=== PATIENT | female | born 1960 | race Hispanic/Latino ===

== ENCOUNTER 2017-06-19 21:14 | Observation (INO) | payer SELFPAY ==
[2017-06-19 21:40] LABS: #Basophils 0.1 thou/uL (0.0-0.2); #Eosinphils 0.1 thou/uL (0.0-0.7); #Lymphocytes 2.1 thou/uL (1.20-3.40); #Monocytes 0.8 thou/uL (0.11-0.59); #Neutrophils 5.3 thou/uL (1.40-6.50); %Basophils 0.8 % (0.0-1.0); %Eosinophils 1.8 % (0.0-10.0); %Monocytes 9.9 % (0.0-10.0); Hematocrit 27.3 % (36.0-47.0); Mean Platelet Volume 8.1 fL (7.4-10.4); Red Blood Cell (RBC) Count 2.76 mill/uL (4.20-5.40); White Blood Cell (WBC) Count 8.4 thou/uL (4.8-10.8)
[2017-06-19 22:03] LABS: ALT (SGPT) 17 U/L (8-55); AST (SGOT) 19 U/L (5-34); Alkaline Phosphatase 104 U/L (40-150); Anion Gap 16 mmol/L (10-20); BUN (Urea Nitrogen) 75 mg/dL (9.8-20.1); Bilirubin, Total 0.4 mg/dL (0.2-1.2); CK (CPK) 109 U/L (29-168); Calc. Creatinine Clearance 0 mL/min (70-130); Calcium 7.3 mg/dL (7.8-10.44); Carbon Dioxide 12 mmol/L (22-29); Chloride 117 mmol/L (98-107); Estimated GFR-MDRD 10; Globulin 4.6 g/dL (2.4-3.5); Protein, Total 8.4 g/dL (6.0-8.3)
[2017-06-19 22:13] LABS: Troponin I Less than 0.010 ng/mL (< 0.028)
--- NOTE | 2017-06-19 22:26 | RAD ---
PORTABLE CHEST ONE VIEW: 06/19/17 at 9:02 p.m. HISTORY: Chest pain. FINDINGS: Comparison is made with exam of 02/14/17. The heart size is normal. No confluent areas of consolidation, pneumothorax, lance pulmonary edema o r pleural effusions are seen. IMPRESSION: No acute process. POS: [facility]
--- NOTE | 2017-06-19 23:58 | PDOC.EVN ---
Event Note - Event Note Event Note: [id number] h&p dictated 1. Chest pain 2. H/O HTN 3. H/O CAD 4. H/O CKD stage 4 + Metabolic acidosis plan: see orders
[2017-06-20 00:41] LABS: Oxyhemoglobin 96.6 % (94.0-97.0); Sodium 145 mmol/L (135-148)
[2017-06-20 00:44] LABS: Modified Allen's Test POSITIVE; Vent NO
[2017-06-20] MEDS ORDERED: Furosemide 40 MG TAB PO PRN (00:44)
[2017-06-20] MEDS ORDERED: Sodium Bicarb 50 MEQ/50 ML VIAL IVP SCH (01:00)
[2017-06-20] MEDS ORDERED: Sodium Bicarbonate Tab 325 MG TAB PO SCH (01:00)
--- NOTE | 2017-06-20 01:02 | HP ---
DATE OF ADMISSION: 06/19/2017 CHIEF COMPLAINT: Chest pain. HISTORY OF PRESENT ILLNESS: Patient is a 56-year-old female with past medical history of hypertensi on, coronary artery disease, CVA, chronic kidney disease stage 4, now came to the ER because of ches t pain. Chest pain started all of a sudden, substernal pressure kind of pain, no aggravating factor s, no relieving factors, associated with some dyspnea also. Positive for nausea. Denies any vomiti ng. Chest pain is currently 2/10, started this evening. Denies any fever, denies any chills, denie s any cough, denies any sputum production. PAST MEDICAL HISTORY: Hypertension, coronary artery disease, CVA, chronic kidney disease stage 4. PAST SURGICAL HISTORY: Cholecystectomy. SOCIAL HISTORY: Denies smoking, denies alcohol, denies any drugs. FAMILY HISTORY: Denies any heart problems. MEDICATIONS: Reviewed. REVIEW OF SYSTEMS: Constitutional: Denies any fever, denies any chills. Eyes: No vision problems . Ears: Denies any hearing loss. Neck: Denies any neck pain. Cardiovascular: Positive for ches t pain. Respiratory: Denies any cough, denies sputum production. Cranial Nerve System: Denies sy ncope, denies lightheadedness. Psychiatric: Denies depression or anxiety. Integument: Denies any rash. Genitourinary: Denies dysuria. Musculoskeletal: Denies any joint deformities. All other review of systems are reviewed and are negative. PHYSICAL EXAMINATION: CONSTITUTIONAL/VITAL SIGNS: At the time of H\T\P performed, blood pressure is 142/65, heart rate 83 , pulse ox 97%. GENERAL: The patient appears comfortable. HEENT: Pupils equal, round, and reactive to light. Anterior nares patent. Nose normal. Ears norm al. Teeth intact. Tongue is moist. NECK: Supple, no JVD. CARDIOVASCULAR: S1, S2 present. Regular rate and rhythm. No murmurs, no rubs, no gallops. RESPIRATORY SYSTEM: No wheezing, no rhonchi. Breath sounds bilaterally. GASTROINTESTINAL: Abdomen is soft, nontender, no guarding, no organomegaly, no masses felt. MUSCULOSKELETAL: No edema. INTEGUMENTARY: No rashes seen. PSYCHIATRIC: Mood appropriate at this time. LABORATORY DATA AND X-RAY FINDINGS: At the time of H\T\P performed, white count 8.4, hemoglobin 9.1 , platelet count is 187. BMP showed sodium 141, potassium 4.3, chloride 117, CO2 12, BUN of 75, cre atinine 4.39, troponin less than 0.010, albumin 3.8, calcium 7.3. Chest x-ray, no obvious infiltrat e seen. EKG, no acute ST changes. ASSESSMENT AND PLAN: The patient is a 56-year-old female: 1. Chest pain, need to rule out cardiac etiology. Plan to check cardiac enzymes. Plan to monitor the patient closely. 2. Metabolic acidosis plus chronic kidney disease stage 4, monitor bicarbonate level closely. Cont inue p.o. sodium bicarbonate. Check ABG. We will give 1 amp of bicarbonate push also. 3. History of hypertension. Monitor blood pressure. Continue blood pressure medications. 4. History of coronary artery disease. Continue home medications. The case was discussed in detail with the patient. Patient is full code.
[2017-06-20 01:14] LABS: Troponin I 0.022 ng/mL (< 0.028)
[2017-06-20 03:31] VITALS: BMI 41.1
[2017-06-20 04:28] LABS: Troponin I 0.018 ng/mL (< 0.028)
[2017-06-20] MEDS ORDERED: Acetaminophen 325 MG TAB PO PRN (06:25)
[2017-06-20] MEDS: Nitroglycerin 2% Ointment 1 INCH/1 GM Packet TOP SCH ×2 (06:46→14:07)
[2017-06-20] MEDS: Sodium Bicarbonate Tab 325 MG TAB PO SCH ×2 (06:54→14:16)
[2017-06-20] MEDS ORDERED: guaiFENesin 100 MG/5 ML UDCUP PO PRN (08:48)
--- NOTE | 2017-06-20 08:57 | PDOC.PN ---
- Subjective Encounter Start Date: 06/20/17 Encounter Start Time: 08:56 Patient seen at bedside, no overnight events, still having chest discomfort but more associated with inspiration, as well as a cough. - Objective MAR Reviewed: Yes Vital Signs & Weight: Vital Signs (12 hours) Temp Pulse Resp BP BP Pulse Ox 06/20/17 07:20 98.1 F 80 20 06/20/17 07:09 98.1 F 80 20 176/80 H 97 06/20/17 03:35 98.6 F 75 16 140/65 99 06/20/17 00:49 97.6 F 83 20 149/67 H 97 Weight Weight 224 lb 9.6 oz I&O: 06/19/17 06/20/17 06/21/17 06:59 06:59 06:59 Intake Total 460 Output Total 500 Balance -40 Result Diagrams: 06/19/17 21:37 06/19/17 21:37 Phys Exam - Physical Examination Constitutional: NAD HEENT: moist MMs Neck: no JVD mild expiratory wheezing Cardiovascular: RRR Gastrointestinal: non-tender Musculoskeletal: pulses present Neurological: moves all 4 limbs Psychiatric: A&O x 3 Skin: no rash Dx/Plan (1) Acute on chronic kidney failure Code(s): N17.9 - ACUTE KIDNEY FAILURE, UNSPECIFIED; N18.9 - CHRONIC KIDNEY DISEASE, UNSPECIFIED Status: Acute (2) Chest pain Code(s): R07.9 - CHEST PAIN, UNSPECIFIED Status: Resolved Qualifiers: Chest pain type: unspecified Qualified Code(s): R07.9 - Chest pain, unspecified (3) DM type 2 (diabetes mellitus, type 2) Status: Chronic Qualifiers: Diabetes mellitus complication status: with kidney complications Diabetes mellitus complication detail: with chronic kidney disease Chronic kidney disease stage: stage 5, not on chronic dialysis (4) Hypertension Code(s): I10 - ESSENTIAL (PRIMARY) HYPERTENSION Status: Chronic Qualifiers: Hypertension type: renovascular hypertension Qualified Code(s): I15.0 - Renovascular hypertension - Plan cont current plan of care, DVT proph w/SCDs * Clinically, chest discomfort appears to be from URI. * Check Influenza * Mucinex/ProAir inhaler PRN * Add Clonidine for BP control * D/C Methyldopa due to patient intolerance * Consult Nephrology for worsening CKD
[2017-06-20] MEDS ORDERED: Carvedilol 25 MG TAB PO SCH (09:00)
[2017-06-20] MEDS ORDERED: cloNIDine 0.1 MG TAB PO SCH (09:00)
[2017-06-20] MEDS ORDERED: NIFEdipine XL 30 MG TAB PO SCH (09:00)
[2017-06-20] MEDS ORDERED: PROVENTIL INHALER 6.7 G (200 INHALATIONS) INH PRN (14:00)
[2017-06-20 16:14] VITALS: BP 111/53; TEMP 98.4
--- NOTE | 2017-06-20 16:17 | DIS ---
DATE OF ADMISSION: 06/19/2017 DATE OF DISCHARGE: 06/20/2017 DISCHARGE DISPOSITION: Home. DISCHARGE FOLLOWUP: 1. [facility] in [place]. 2. Dr. Montilla as previously scheduled. DISCHARGE DIAGNOSES: 1. Chest pain - acute coronary syndrome rule out. 2. Stage 4 kidney disease. 3. Metabolic acidosis secondary to #2. 4. Hypertension. 5. History of coronary disease. 6. Hypertension. 7. Hyperlipidemia. DISCHARGE MEDICATIONS: 1. Aspirin 81 mg p.o. daily. 2. Coreg 25 mg p.o. b.i.d. 3. Furosemide 40 mg p.o. daily. 4. Nifedipine extended release 30 mg p.o. b.i.d. 5. Ranexa 500 mg p.o. b.i.d. This is new. 6. Ventolin HFA inhaler 2 puffs q.6 hours p.r.n. This is new. 7. Simvastatin 40 mg p.o. daily. INPATIENT CONSULTATIONS: Dr. Calabrese, Cardiology. INPATIENT PROCEDURES: None. INPATIENT RADIOGRAPHIC EXAMINATIONS: Chest x-ray, which revealed no acute processes. BRIEF HOSPITAL COURSE: Ms. Gin Medrano is a 56-year-old female with a past medical history of stag e 4 kidney disease, hyperlipidemia, coronary artery disease, hypertension, who presents to the emerg ency room complaining of substernal chest pressure with no aggravating or relieving factors. The pa tiemele states that she has had cold and flu-like symptoms. At times, she does have some chest tightn ess. No shortness of breath or cough. She then presented to the emergency room where she was evalu ated, and given her cardiac risk factors, was then placed on observation onto the telemetry floor. Three sets of cardiac enzymes were normal. The patient was then evaluated by Cardiology, who stated that she could have a cardiac catheterization; however, given her chronic kidney disease that this droven to dialysis, and she states she did not want this at this time. She preferred to go with [facility] management. Her blood pressure medications have been titrated. She has been placed on Ranexa for symptomatic relief as well as further optimization of her coronary disease. Given her symptoms, this appears to be more of a URI. She will be started on Proventil inhaler p.r.n., and she will be discharged with that as well. She is currently feeling better. She is in no acute distress and no longer having any further chest pains. She will be discharged home later today in stable condition . DISCHARGE DIET: Heart healthy. ACTIVITY: As tolerated. RESTRICTIONS: None. CODE STATUS: FULL CODE. ALLERGIES: 1. DEXTROMETHORPHAN. 2. DOXYLAMINE. 3. PSEUDOEPHEDRINE. 4. HYDRALAZINE. DISCHARGE FOLLOWUP: 1. With [facility] in [place]: 2. Dr. Aleks Montilla. I have explained all this to the patient at bedside. She is agreeable to the plan of discharge. Al l questions have been answered. Patient total discharge time 34 minutes.
[2017-06-21] MEDS ORDERED: FLU VACC QS2017-18 36 mo. & older 0.5 ML SYRINGE IM ONE (09:00)
== END 2017-06-20 16:55 | disposition home or self-care (01) ==
LOC: ERS 21:14 → 2SW 06-20 00:48
PROVIDERS: ADMIT Internal Medicine; ATTEND Internal Medicine
DX: R07.89 Other chest pain (principal); I12.9 Hypertensive chronic kidney disease with stage 1 through stage 4 chronic kidney disease, or unspecified chronic kidney disease; N18.4 Chronic kidney disease, stage 4 (severe); E87.2 Acidosis; I25.10 Atherosclerotic heart disease of native coronary artery without angina pectoris; E78.5 Hyperlipidemia, unspecified; Z88.1 Allergy status to other antibiotic agents; Z79.82 Long term (current) use of aspirin; Z79.899 Other long term (current) drug therapy; Z90.49 Acquired absence of other specified parts of digestive tract; Z86.73 Personal history of transient ischemic attack (TIA), and cerebral infarction without residual deficits; Z87.891 Personal history of nicotine dependence
CPT/HCPCS: 36415; 71010; 80053; 80061; 82553; 82805; 84484; 85025; 93005; 94760; 96374; G0378

== ENCOUNTER 2017-06-21 23:06 | Observation (INO) | payer SELFPAY ==
[2017-06-21 23:33] LABS: #Basophils 0.1 thou/uL (0.0-0.2); #Eosinphils 0.2 thou/uL (0.0-0.7); #Lymphocytes 2.3 thou/uL (1.20-3.40); #Monocytes 0.7 thou/uL (0.11-0.59); #Neutrophils 4.8 thou/uL (1.40-6.50); %Basophils 0.8 % (0.0-1.0); %Eosinophils 2.2 % (0.0-10.0); %Lymphocytes 29.1 % (21.0-51.0); %Monocytes 8.3 % (0.0-10.0); Hematocrit 25.6 % (36.0-47.0); Mean Platelet Volume 6.1 fL (7.4-10.4); Red Blood Cell (RBC) Count 2.57 mill/uL (4.20-5.40)
[2017-06-21 23:41] LABS: PTT 28.8 SEC (22.9-36.1); Prothrombin Time 15.6 SEC (12.0-14.7)
[2017-06-21 23:51] LABS: ALT (SGPT) 13 U/L (8-55); AST (SGOT) 12 U/L (5-34); Alkaline Phosphatase 91 U/L (40-150); Anion Gap 16 mmol/L (10-20); BUN (Urea Nitrogen) 70 mg/dL (9.8-20.1); Bilirubin, Total 0.4 mg/dL (0.2-1.2); CK (CPK) 65 U/L (29-168); Calc. Creatinine Clearance 0 mL/min (70-130); Calcium 7.2 mg/dL (7.8-10.44); Carbon Dioxide 14 mmol/L (22-29); Chloride 115 mmol/L (98-107); Estimated GFR-MDRD 11; Globulin 4.3 g/dL (2.4-3.5); Lipase 69 U/L (8-78); Protein, Total 7.8 g/dL (6.0-8.3)
[2017-06-21 23:52] LABS: Troponin I Less than 0.010 ng/mL (< 0.028)
--- NOTE | 2017-06-21 23:58 | RAD ---
PORTABLE CHEST: COMPARISON: 06/19/2017 study. HISTORY: Left arm weakness. End-stage renal disease. FINDINGS: Heart size appears slightly enlarged. The mediastinal structures are unremarkable. The lungs are c lear of infiltrates. IMPRESSION: Mild cardiomegaly. POS: [facility]
--- NOTE | 2017-06-22 | CT ---
CT OF BRAIN PERFORMED WITHOUT CONTRAST ENHANCEMENT: HISTORY: Altered mental status and weakness. FINDINGS: The ventricular and cisternal system is within normal limits. Old lacunar infarcts in the left caps ule region and old left cerebellar infarcts are noted. These do not appear changed since the 017 study. There are no signs of intracerebral hemorrhage or extraaxial fluid collections. The mas toid air cells and visualized sinuses appear clear. IMPRESSION: No acute intracranial abnormalities. POS: [facility]
[2017-06-22 03:04] LABS: Troponin I Less than 0.010 ng/mL (< 0.028)
[2017-06-22 04:47] VITALS: BMI 41.1
[2017-06-22 06:08] LABS: Troponin I Less than 0.010 ng/mL (< 0.028)
[2017-06-22] MEDS ORDERED: Acetaminophen 500 MG TAB PO PRN (09:47)
[2017-06-22] MEDS ORDERED: cloNIDine 0.1 MG TAB PO PRN (09:47)
[2017-06-22] MEDS ORDERED: Ondansetron ODT 4 MG TAB PO PRN (09:47)
[2017-06-22] MEDS ORDERED: Furosemide 40 MG TAB PO PRN (09:47)
[2017-06-22] MEDS ORDERED: Ondansetron HCl/PF 4 MG/2 ML Vial IVP PRN (09:47)
[2017-06-22] MEDS ORDERED: Labetalol HCl 100 MG/20 ML VIAL SLOW IVP PRN (09:47)
[2017-06-22] MEDS ORDERED: Sodium Bicarbonate Tab 325 MG TAB PO SCH ×2 (11:00→21:00)
[2017-06-22] MEDS ORDERED: Famotidine 20 MG TAB PO SCH (11:00)
--- NOTE | 2017-06-22 11:32 | ULT ---
CAROTID ULTRASOUND WITH QIU SCALE AND DOPPLER DUPLEX COLOR FLOW IMAGING SPECTRAL ANALYSIS PERFORMED: CLINICAL INDICATION: [] FINDINGS: There is No significant atherosclerotic calcification of the carotid arteries. PEAK SYSTOLIC VELOCITY (CM/S): Right CCA 98 Left CCA 189 Right ICA 103 Left ICA 142 There is antegrade flow within the visualized bilateral vertebral arteries. Incidental note of a focus of altered echotexture within the right neck soft tissues measuring sligh tly greater than 2 cm in size, nonspecific. IMPRESSION: 1. No hemodynamically significant stenosis of the right internal carotid artery. 2. Moderate (50-69%) stenosis of the left internal carotid artery. 3. Incidental note of a complex mass of the right neck soft tissues. This may be further assessed with contrast-enhanced neck CT. POS: [facility]
[2017-06-22] MEDS ORDERED: Aspirin 325 mg Enteric Coated Tablet PO SCH (12:00)
--- NOTE | 2017-06-22 12:49 | MRI ---
BRAIN MRI NONCONTRAST: COMPARISON: 08/12/14. INDICATION: TIA. FINDINGS: Redemonstration of moderate-size left cerebellar hemispheric remote infarction. There is mild chron ic microvascular ischemic disease. No hemorrhagic susceptibility or acute territorial infarction. Imaged skull base flow voids are stable. IMPRESSION: 1. No acute intracranial abnormalities. 2. Additional details as described above. POS: [facility]
--- NOTE | 2017-06-22 13:39 | HP ---
DATE OF ADMISSION: 06/22/2017 PRIMARY CARE PROVIDER: [facility] in [place], [place]. CHIEF COMPLAINT: Left arm numbness and facial tingling. HISTORY OF PRESENT ILLNESS: This is a 56-year-old female who presented to [facility] complaining of left facial and left upper extremity paresthesias, weakness, and so me pain radiating from the neck to her hand. Patient states she was attempting to text her son when she had difficulty manipulating and coordinating the movement of texting. The patient states she d id not feel well and notified her family after becoming concerned for a possible stroke. The patien t states she had similar symptoms approximately 1 year ago and was diagnosed with TIA. The patient had no residual deficits from this incident, but became concerned. The patient does admit to increa sed stress with her children and family life and admits to high emotions preceding this episode. Th e patient denied any specific chest pain, shortness of breath, jaw discomfort, and difficulty with s peech. The patient states the symptoms began approximately 22:30 on 06/21/2017 prompting her to see k medical attention. The patient does state she takes aspirin 81 mg daily and has been compliant wi th her medication regimen. The patient was recently evaluated and placed in observation status on through 06/20/2017 after presenting with chest pain. The patient underwent cardiac workup and enzymatic rule out during this hospital course with the addition of Ranexa to her chronic medic ation regimen. The patient denied any recent trauma, injury, fever, chills, increased activity leve l. The patient does states she is left hand dominant. In the emergency room, patient underwent gen eral evaluation including CT imaging of the brain showing no acute process. Screening metabolic gonzalo vey did show evidence of questionable acute on chronic worsening anemia with hemoglobin of 7.7. The patient was typed and crossed and transfused 1 unit of packed red blood cells currently running at the time of this evaluation. PAST MEDICAL HISTORY: 1. Chronic kidney disease stage 4-5. 2. Chronic metabolic acidosis. 3. Chronic macrocytic anemia secondary to chronic kidney disease. 4. Questionable history of prior TIA. 5. Coronary artery disease. 6. Diastolic dysfunction grade 2/3 with preserved ejection fraction of 60%-65%. PAST SURGICAL HISTORY: 1. Status post cholecystectomy. 2. Status post left upper extremity AV fistula placement. CURRENT MEDICATIONS: 1. Enteric coated aspirin 81 mg 1 tablet p.o. daily. 2. Coreg 25 mg p.o. b.i.d. 3. Lasix 40 mg 1 tablet p.o. daily. 4. Isosorbide mononitrate 120 mg p.o. daily. 5. Nifedipine ER 30 mg p.o. b.i.d. 6. Simvastatin 40 mg p.o. at bedtime. 7. Ranexa 500 mg p.o. b.i.d. 8. Ventolin HFA metered dose inhaler 2 puffs inhaled q.6 hours p.r.n. ALLERGIES: DEXTROMETHORPHAN, DOXYLAMINE SUCCINATE, HYDRALAZINE, and PSEUDOEPHEDRINE. FAMILY HISTORY: Positive for hypertension. SOCIAL HISTORY: The patient resides in [facility]. No current alcohol, tobacco or illici t drug use. Functional of all activities of daily living. REVIEW OF SYSTEMS: The following complete review of systems was negative, unless otherwise mentione d in the HPI or below: Constitutional: Weight loss or gain, ability to conduct usual activities. Skin: Rash, itching. Eyes: Double vision, pain. ENT/Mouth: Nose bleeding, neck stiffness, pain, tenderness. Cardiovascular: Palpitations, dyspnea on exertion, orthopnea. Respiratory: Shortness of breath, wheezing, cough, hemoptysis, fever or night sweats. Gastrointestinal: Poor appetite, abdominal pain, heartburn, nausea, vomiting, constipation, or diar quinn. Genitourinary: Urgency, frequency, dysuria, nocturia. Musculoskeletal: Pain, swelling. Neurologic/Psychiatric: Anxiety, depression. Allergy/Immunologic: Skin rash, bleeding tendency. Otherwise negative except as stated per HPI. PHYSICAL EXAMINATION: VITAL SIGNS: Currently, blood pressure 142/74, pulse 74, respiratory rate 18, temperature 98.8 degr ees Fahrenheit, and O2 saturation 97% on room air. GENERAL APPEARANCE: This is a 56-year-old female, alert and oriented x3, pleasant, convers ant, in no acute distress. HEENT: Pupils are equal, round, and reactive to light and accommodation. Extraocular muscles are i ntact. No scleral icterus, no conjunctival injection. Nares patent. OP is clear. Teeth in fair r epair. NECK: Supple, no cervical adenopathy, no thyromegaly, no carotid bruits, no JVD appreciated. Cervi raul spine with full active and passive range of motion. CHEST: Lungs are clear to auscultation bilaterally. CARDIOVASCULAR: S1 and S2 with 2/6 systolic ejection murmur, loudest in the left upper sternal bord er. ABDOMEN: Obese, soft, nontender, and nondistended. Bowel sounds are positive in all four quadrants . There is no hepatosplenomegaly, no abdominal bruits, no rebound or guarding appreciated. EXTREMITIES: Left upper extremity AV fistula in place with palpable thrill. No peripheral edema ap preciated. Pulses palpable distally at the dorsalis pedis, posterior tibial, and popliteal arteries bilaterally. Capillary refill less than 2 seconds. NEUROLOGIC: Cranial nerves II-XII are grossly intact. No focal or lateralizing signs are appreciat ed. Left hand dominant. PERTINENT LABORATORY DATA AND X-RAY FINDINGS: Sodium 141, potassium 4.0, chloride 115, CO2 of 14, B UN 70, creatinine 4.35 with estimated GFR of 11, glucose 126, and calcium 7.2. LFT is within normal limits. Troponin I negative x3. Albumin 3.5, lipase 69. CBC showed white blood cell count of 8.0 , hemoglobin 7.7, hematocrit 26, MCV 100, and platelet count 185 with normal differential. PT 15.6, INR 1.2, and PTT 28.8. Stool Hemoccult positive x1 on 06/22/2017. CT of the brain without contras t dated 06/21/2017 showed no acute intracranial process. Portable chest x-ray dated 06/21/2017 show ed mild cardiomegaly without acute process. EKG dated 06/21/2017 by my interpretation shows a sinus mechanism with heart rates in the 70s. Attenuated R waves noted in the precordial leads. Normal a xis. No acute ST-T wave changes are appreciated. ASSESSMENT AND PLAN: 1. Left facial and left upper extremity paresthesias/question of transient ischemic attack. The pa tient will be observed on the Stroke Unit. We will proceed with MRI imaging of the brain to definit ively rule out acute cerebrovascular accident. Check carotid Doppler study. Recent 2D transthoraci c echocardiogram performed on 02/15/2017 showed preserved ejection fraction of 60%-65% with grade 2/ 3 diastolic dysfunction. Continue aspirin 325 mg p.o. daily. Continue Simvastatin 40 mg p.o. at be dtime. 2. Question of acute on chronic macrocytic anemia. Suspect anemia due to chronic kidney disease. We will repeat stool hemoccult x2. One unit of packed red blood cells currently transfusing. Seria l hemoglobin and hematocrit monitoring. No current evidence to suggest acute blood loss. Repeat CB C in the a.m. 3. Chronic kidney disease stage 4-5. Continue symptomatic and supportive measures. Avoid nephroto xic agents and contrast media. Repeat creatinine in the a.m. 4. Metabolic acidosis. Secondarily to chronic kidney disease. We will start sodium bicarbonate 32 5 mg p.o. b.i.d. and repeat CO2 level in the a.m. 5. Coronary artery disease, chronic and stable. No evidence to suggest acute coronary syndrome. C ontinue home medication regimen and monitor clinically. 6. Hypertension. Resume Coreg 25 mg p.o. b.i.d. and nifedipine ER 30 mg p.o. b.i.d. 7. Prophylaxis. Sequential compression devices while in bed. Pepcid 20 mg p.o. b.i.d. 8. Code status is FULL. Surrogate medical decision maker is patient's son.
[2017-06-22] MEDS: Carvedilol 25 MG TAB PO SCH (21:24)
[2017-06-22] MEDS: Atorvastatin Calcium 20 MG TAB PO SCH (21:25)
[2017-06-22] MEDS: NIFEdipine XL 30 MG TAB PO SCH (21:25)
[2017-06-23 05:07] LABS: Hemoglobin A1c 4.6 % (4.0-6.0)
[2017-06-23 05:15] LABS: Anion Gap 14 mmol/L (10-20); BUN (Urea Nitrogen) 65 mg/dL (9.8-20.1); Calc. Creatinine Clearance 27 mL/min (70-130); Calcium 7.4 mg/dL (7.8-10.44); Carbon Dioxide 16 mmol/L (22-29); Chloride 115 mmol/L (98-107); Cholesterol 65 mg/dl (< 200 Desired); Estimated GFR-MDRD 13; LDL Cholesterol, Calculated 27 mg/dL; Magnesium 1.2 mg/dL (1.6-2.6)
[2017-06-23 05:49] LABS: Band 1 % (5-11); Mean Platelet Volume 7.9 fL (7.4-10.4); Neutrophil 71 % (42-75); Red Blood Cell (RBC) Count 3.19 mill/uL (4.20-5.40); Tear Drops SLIGHT = 2-5 cells (100X) (0-1/hpf); White Blood Cell (WBC) Count 8.5 thou/uL (4.8-10.8)
[2017-06-23] MEDS: Carvedilol 25 MG TAB PO SCH ×2 (08:19→20:12)
[2017-06-23] MEDS: Famotidine 20 MG TAB PO SCH (08:19)
[2017-06-23] MEDS: Aspirin 325 mg Enteric Coated Tablet PO SCH (08:19)
[2017-06-23] MEDS: NIFEdipine XL 30 MG TAB PO SCH ×2 (08:19→20:09)
[2017-06-23] MEDS: Sodium Bicarbonate Tab 325 MG TAB PO SCH ×2 (08:42→20:12)
[2017-06-23] MEDS ORDERED: FLU VACC QS2017-18 36 mo. & older 0.5 ML SYRINGE IM ONE (09:00)
--- NOTE | 2017-06-23 11:40 | PDOC.PN ---
- Subjective Encounter Start Date: 06/23/17 Encounter Start Time: 11:39 Patient seen and examined. No new complaints. No overnight events. feels better. No dizziness or numbness reported. No chest pain or palpitation. - Objective Resuscitation Status: Resuscitation Status FULL:Full Resuscitation MAR Reviewed: Yes Vital Signs & Weight: Vital Signs (12 hours) Temp Pulse Resp BP Pulse Ox 06/23/17 08:19 72 06/23/17 08:00 98.5 F 72 16 06/23/17 07:35 98.5 F 72 18 158/87 H 98 06/23/17 04:00 97 F L 71 16 97 06/22/17 23:50 98.6 F 68 16 140/64 95 Weight Weight 224 lb 11.2 oz I&O: 06/22/17 06/23/17 06/24/17 06:59 06:59 06:59 Intake Total 120 2020 Balance 120 2019 Result Diagrams: 06/23/17 04:36 06/23/17 04:36 Phys Exam - Physical Examination Constitutional: NAD HEENT: sclera anicteric Neck: supple Respiratory: no wheezing, no rales Cardiovascular: RRR Gastrointestinal: soft Musculoskeletal: no edema Neurological: non-focal, moves all 4 limbs Psychiatric: normal affect, A&O x 3 Skin: no rash Dx/Plan (1) TIA (transient ischemic attack) Status: Acute (2) Mass of right side of neck Code(s): R22.1 - LOCALIZED SWELLING, MASS AND LUMP, NECK Status: Acute (3) Metabolic acidosis Code(s): E87.2 - ACIDOSIS Status: Chronic Comment: Metabolic acidosis secondary to INDIRA/CKD, Sodium Bicarbonate 325mg BID (4) Morbid obesity Code(s): E66.01 - MORBID (SEVERE) OBESITY DUE TO EXCESS CALORIES Status: Chronic (5) Anemia in chronic kidney disease (CKD) Code(s): N18.9 - CHRONIC KIDNEY DISEASE, UNSPECIFIED; D63.1 - ANEMIA IN CHRONIC KIDNEY DISEASE Status: Chronic Comment: Stable, no evidence of acute blood loss (6) CKD (chronic kidney disease) stage 5, GFR less than 15 ml/min Code(s): N18.5 - CHRONIC KIDNEY DISEASE, STAGE 5 Status: Chronic (7) Hypertension Code(s): I10 - ESSENTIAL (PRIMARY) HYPERTENSION Status: Chronic Qualifiers: - Plan cont current plan of care, DVT proph w/SCDs * . stool OB pending Mass on rt neck - not able to have contrast study now due to CKD. No pain reported. Advised to f/u with PCP. will give one dose of Epo Home in 24 -48 hrs anemia w/u pending Hb better with transfusion. continue sod bicarb Monitor Hb level.
[2017-06-23] MEDS ORDERED: Epoetin (ESRD) 10,000 UNITS/ML VIAL SC SCH (12:00)
[2017-06-23 14:48] LABS: Hematocrit 31.6 % (36.0-47.0); Mean Platelet Volume 8.5 fL (7.4-10.4); Neutrophil 72 % (42-75); Ovalocytes SLIGHT = 2-5 cells (100X) (0-1/hpf); Polychromasia SLIGHT = 2-3 cells (100X) (0-2/hpf); Reactive Lymphocytes 3 % (0-10); Red Blood Cell (RBC) Count 3.26 mill/uL (4.20-5.40); White Blood Cell (WBC) Count 7.4 thou/uL (4.8-10.8)
[2017-06-23] MEDS: Atorvastatin Calcium 20 MG TAB PO SCH (20:12)
[2017-06-24 05:39] LABS: Anion Gap 12 mmol/L (10-20); BUN (Urea Nitrogen) 59 mg/dL (9.8-20.1); Calc. Creatinine Clearance 28 mL/min (70-130); Calcium 7.5 mg/dL (7.8-10.44); Carbon Dioxide 18 mmol/L (22-29); Chloride 115 mmol/L (98-107); Estimated GFR-MDRD 13
--- NOTE | 2017-06-24 05:45 | CON ---
DATE OF CONSULTATION: 06/23/2017 REFERRING PHYSICIAN: Tegan Quintana M.D., [facility] REASON FOR CONSULTATION: Anemia and occult gastrointestinal bleeding. HISTORY OF PRESENT ILLNESS: Ms. Gin Medrano is a very pleasant 56-year-old female h ospitalized with left arm numbness and also facial tingling. She has past history of TIA. The rachelle ent's symptoms resolved at the present time. It is not very clear whether she has had TIA or just m ore from stress. Apparently, she has been under a lot of stress lately. Anyway, her symptoms resol lita and she has no more tingling, numbness, or any neurological symptoms. The patient was found to have anemia on admission. The patient was transfused 1 unit of packed RBCs since admission. The he moglobin was 7.7. The patient has no GI symptoms whatsoever. Her bowel movements are regular. The re is no history of hematochezia or melena. The patient has been hospitalized several times in this hospital for various reasons. The patient has a history of coronary artery disease and has been ma naged basically medically. She has been seen by Dr. Avila several times. She has also seen Ms. Laura Jenkins for Hematology evaluation in the recent past. As per the consultation by Ms. Moon quevedo that she has had chronic anemia for many years. She has been followed by Dr. 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 As per the history and physical by Ms. Moon Jenkins, which was done probably tw o years ago, the patient has a baseline with hemoglobin 7.3. The patient has no GI symptoms whatsoe chidi. There is no history of abdominal pain, nausea, vomiting, no indigestion, no heartburn. Her theresa wel movements are regular. She had not had a colonoscopy in the past. She has no other relevant sy mptoms. MEDICAL ILLNESSES: 1. Chronic kidney disease stage 4-5 and has had an AV shunt placement by Dr. Rivas recently. 2. Chronic metabolic acidosis. 3. Chronic anemia, baseline level of 7.3 as per the Hematology consult by Ms. Moon Jenkins. 4. History of TIA. 5. Coronary artery disease, longstanding and is being seen by Dr. Avila. 6. Diastolic dysfunction. SURGERIES: 1. Status post cholecystectomy. 2. Fistula placement by Dr. Rivas. ALLERGIES: DEXTROMETHORPHAN, DOXYLAMINE SUCCINATE, HYDRALAZINE, PSEUDOEPHEDRINE. SOCIAL HISTORY: Her of colon cancer a couple of years ago. She does not smoke or drin k alcohol. FAMILY HISTORY: Hypertension. MEDICATIONS: Include aspirin, Coreg, Lasix, Isordil, nifedipine, simvastatin. Ranexa, Ventolin inhaler. REVIEW OF SYSTEMS: Constitutional: No history of weight loss. No history of fever. No history of alteration in mental status. Central Nervous System: No past history of . No history of ch ronic headache. No history of seizure disorder. No history of syncope. Respiratory System: No hi story of chronic cough, hemoptysis, dyspnea. Cardiovascular System: Known coronary artery disease with multiple episodes of chest pain in the past. At the present time, no chest pain, no palpitatio n, no dyspnea, orthopnea, or PND. Gastrointestinal: Unremarkable. Genitourinary: No dysuria, hem aturia. Musculoskeletal: Occasional back pain and arthralgias. Neuropsychiatric: History of anxi ety and depression. PHYSICAL EXAMINATION: GENERAL: The patient is extremely obese, appears comfortable. She is awake, alert, oriented to ashly e, place, and person. VITAL SIGNS: Pulse is 74, blood pressure 140/70. HEENT: Conjunctivae clear. NECK: Supple. No adenitis or thyromegaly noted. CARDIOVASCULAR: First and second heart sounds are normal. LUNGS: Clear to auscultation. ABDOMEN: Soft to palpate. Abdomen is nontender. There is no organomegaly or masses. Bowel sounds are normal. EXTREMITIES: Reveal no edema. CENTRAL NERVOUS SYSTEM: Grossly within normal limits. ADMITTING LABORATORY DATA: Sodium 141, potassium 4, chloride 115, bicarb 16, BUN is 70, creatinine 4.35, glucose 126, calcium 7.2. LFTs are normal. Troponin level is normal. Albumin 3.5, lipase 69 . CBC: Hemoglobin 7.7, hematocrit 26, MCV 100, platelet count is 185,000. IMAGING: CT of the brain was negative for any pathology. CLINICAL IMPRESSION: A 56-year-old female hospitalized because of symptoms of a solano sient ischemic attack. The symptoms resolved. The patient has past history of transient ischemic a ttack. She has anemia. She has no history of hematochezia or melena. As per the Hematology consul t by Elana Moon Jenkins couple of years ago, she has had anemia with the baseline hemoglobin of 7.3, s o the anemia is not new. The only different finding is that she has positive stool guaiac. She had a negative stool guaiac a year ago. I had talked to Ms. Medrano about having a colonoscopy and poss ible EGD. I did explain to her that the anemia is probably because of anemia of chronic disease. H owever, because of the age and positive stool guaiac, I did advise her to have a colonoscopy and pos sible EGD. The patient is little hesitant about having the procedure. She is really not sure wheth er she wants to do it. She will think about it and let me know later on. If she is agreeable, I wi ll plan for her endoscopic studies in the near future.
[2017-06-24] MEDS: NIFEdipine XL 30 MG TAB PO SCH (08:54)
[2017-06-24] MEDS: Sodium Bicarbonate Tab 325 MG TAB PO SCH (08:54)
[2017-06-24] MEDS: Aspirin 325 mg Enteric Coated Tablet PO SCH (08:54)
[2017-06-24] MEDS: Carvedilol 25 MG TAB PO SCH (08:55)
[2017-06-24] MEDS: Famotidine 20 MG TAB PO SCH (08:55)
[2017-06-24 11:40] VITALS: BP 152/77; TEMP 98.4
--- NOTE | 2017-06-24 12:11 | PDOC.PN ---
- Subjective Encounter Start Date: 06/24/17 Encounter Start Time: 12:08 Patient seen and examined. No new complaints. No overnight events. feels better. No more dizziness or tingling or numbness. No chest pain. No sob reported. no neck pain. Refused to have EGD and colonoscopy. wants to go home - Objective Resuscitation Status: Resuscitation Status FULL:Full Resuscitation MAR Reviewed: Yes Vital Signs & Weight: Vital Signs (12 hours) Temp Pulse Resp BP BP Pulse Ox 06/24/17 11:26 98.4 F 74 18 152/77 H 96 06/24/17 08:54 75 164/86 H 06/24/17 08:00 98.6 F 75 14 06/24/17 07:35 98.6 F 96 18 164/86 H 98 06/24/17 04:22 98.0 F 68 18 152/83 H 93 L Weight Weight 226 lb I&O: 06/23/17 06/24/17 06/25/17 06:59 06:59 06:59 Intake Total 2019 240 360 Balance 2019 240 360 Result Diagrams: 06/23/17 14:07 06/24/17 05:05 Phys Exam - Physical Examination HEENT: sclera anicteric Neck: supple Respiratory: no wheezing, no rales Cardiovascular: RRR Gastrointestinal: soft Musculoskeletal: no edema Neurological: non-focal, moves all 4 limbs Psychiatric: normal affect, A&O x 3 Skin: no rash, normal turgor Dx/Plan (1) TIA (transient ischemic attack) Status: Acute (2) Mass of right side of neck Code(s): R22.1 - LOCALIZED SWELLING, MASS AND LUMP, NECK Status: Acute (3) Metabolic acidosis Code(s): E87.2 - ACIDOSIS Status: Chronic Comment: Metabolic acidosis secondary to INDIRA/CKD, Sodium Bicarbonate 325mg BID (4) Morbid obesity Code(s): E66.01 - MORBID (SEVERE) OBESITY DUE TO EXCESS CALORIES Status: Chronic (5) Anemia in chronic kidney disease (CKD) Code(s): N18.9 - CHRONIC KIDNEY DISEASE, UNSPECIFIED; D63.1 - ANEMIA IN CHRONIC KIDNEY DISEASE Status: Chronic Comment: Stable, no evidence of acute blood loss (6) CKD (chronic kidney disease) stage 5, GFR less than 15 ml/min Code(s): N18.5 - CHRONIC KIDNEY DISEASE, STAGE 5 Status: Chronic (7) Hypertension Code(s): I10 - ESSENTIAL (PRIMARY) HYPERTENSION Status: Chronic Qualifiers: - Plan * . DC home today refused EGD and colonoscopy. f/u with PCP. repeat neck US in 2 weeks and MRI if needed. f/u with nephrology in 2 weeks.
--- NOTE | 2017-06-24 20:06 | DIS ---
DATE OF ADMISSION: 06/22/2017 DATE OF DISCHARGE: 06/24/2017 DISCHARGE DIAGNOSES: 1. Transient ischemic attack. 2. Macrocytic anemia. 3. Chronic kidney disease, stage 5. 4. Metabolic acidosis. 5. Coronary artery disease. 6. Hypertension. 7. Right neck mass. CONSULTS: Dr. Severino. PROCEDURES: 1. MRI, no acute abnormalities. 2. Carotid Doppler, no significant stenosis. HOSPITAL COURSE: This is a 56-year-old female, who was admitted with complaints of left arm numbnes s and tingling, which improved during the hospitalization. The patient had MRI and carotid Doppler, which was essentially negative. She was also found to be anemic and she had blood transfusion, 2 u nits of blood transfusion. The hemoglobin was improved from 7.7-10.5. The patient had dramatic imp rovement in symptoms also. GI also evaluated her as one of her stool samples was positive , b ut she is refused to have an EGD and colonoscopy. During the carotid Doppler, incidentally she was found to have right neck mass. She reported having leg lymph nodes, leg swelling 2 weeks back, which got better. Due to her advanced kidney disease, she could not have a repeat contrast, CAT scan done, so she was advised to follow up with her primar care physician with the plan to repeat ultrasound of the neck in 2 weeks and an MRI if needed. The patient was found to have chronic kidney disease stage 5. She is on followup with Dr. Montilla, a dvised to follow up in 2 weeks. She was also started on sodium bicarbonate during the hospitalizati on and improvement in bicarbonate. The patient was also given 1 dose of Epogen. DISCHARGE FOLLOWUP: Follow up with primary care physician in 1 week and follow up with Nephrology i n 1-2 weeks. DISCHARGE MEDICATIONS: 1. Furosemide 40 mg p.o. q.a.m. 2. Simvastatin 40 mg p.o. at bedtime. 3. Nifedipine 30 mg p.o. b.i.d. 4. Isosorbide mononitrate 120 p.o. daily. 5. Aspirin 81 mg p.o. daily. 6. Coreg 25 b.i.d. CONDITION ON DISCHARGE: Stable. DISPOSITION: To home. DISCHARGE FOLLOWUP: As stated earlier with primary care physician in 1 week and Nephrology in 1-2 w eeks with followup of anemia and acidosis. Please note that I did spend more than 35 minutes coordinating the discharge care of this patient.
== END 2017-06-24 16:28 | disposition home or self-care (01) ==
LOC: SCSER 23:06 → 2SE 06-22 02:04
PROVIDERS: ADMIT Internal Medicine; ATTEND Internal Medicine
DX: G45.9 Transient cerebral ischemic attack, unspecified (principal); D64.9 Anemia, unspecified; I12.0 Hypertensive chronic kidney disease with stage 5 chronic kidney disease or end stage renal disease; N18.5 Chronic kidney disease, stage 5; E87.2 Acidosis; I25.10 Atherosclerotic heart disease of native coronary artery without angina pectoris; R22.1 Localized swelling, mass and lump, neck; Z88.8 Allergy status to other drugs, medicaments and biological substances; Z79.82 Long term (current) use of aspirin; Z79.899 Other long term (current) drug therapy; Z90.49 Acquired absence of other specified parts of digestive tract; Z87.891 Personal history of nicotine dependence; Z99.2 Dependence on renal dialysis
CPT/HCPCS: 36415; 36416; 36430; 70450; 70551; 71010; 80048; 80053; 80061; 82274; 82553; 82607; 82746; 83036; 83690; 83735; 84100; 84484; 85007; 85025; 85027; 85610; 85730; 86850; 86900; 86901; 86922; 90471; 90682; 93005; 93880; 96372; G0008; G0378; P9016; Q2036; Q4081

== ENCOUNTER 2017-09-25 20:21 | Observation (INO) | payer SELFPAY ==
--- NOTE | 2017-09-25 21:35 | RAD ---
PORTABLE CHEST 09/25/17 PROVIDED CLINICAL HISTORY: Hypertension. FINDINGS: Comparison is made with the study dated 06/21/17. Cardiac and mediastinal silhouette is unchanged in appearance. Lungs appear clear. No pleural fluid o r pneumothorax apparent. IMPRESSION: No evidence for an acute cardiopulmonary process. POS: [facility]
[2017-09-25 21:40] LABS: #Basophils 0.1 thou/uL (0.0-0.2); #Eosinphils 0.1 thou/uL (0.0-0.7); #Lymphocytes 1.4 thou/uL (1.20-3.40); #Monocytes 0.5 thou/uL (0.11-0.59); #Neutrophils 6.2 thou/uL (1.40-6.50); %Basophils 1.1 % (0.0-1.0); %Eosinophils 1.2 % (0.0-10.0); %Monocytes 5.7 % (0.0-10.0); %Neutrophils 75.1 % (42.0-75.0); Hemoglobin 8.9 g/dL (12.0-16.0); Mean Corpuscular HGB CONC 32.4 g/dL (32.0-36.0); Mean Corpuscular Hemoglobin 32.3 pg (27.0-31.0); Mean Corpuscular Volume 99.8 fl (81.0-99.0); Mean Platelet Volume 7.3 fL (7.4-10.4); Platelet Count 217 thou/uL (130-400); RBC Distribution Width 13.5 % (11.5-14.5); Red Blood Cell (RBC) Count 2.75 mill/uL (4.20-5.40); White Blood Cell (WBC) Count 8.3 thou/uL (4.8-10.8)
[2017-09-25 21:49] LABS: INR-International Normal Ratio 1.3; PTT 32.7 SEC (22.9-36.1); Prothrombin Time 16.2 SEC (12.0-14.7)
[2017-09-25 21:55] LABS: ALT (SGPT) 13 U/L (8-55); AST (SGOT) 13 U/L (5-34); Albumin 3.7 g/dL (3.5-5.0); Alkaline Phosphatase 107 U/L (40-150); Anion Gap 15 mmol/L (10-20); BUN (Urea Nitrogen) 79 mg/dL (9.8-20.1); Bilirubin, Total 0.4 mg/dL (0.2-1.2); CK (CPK) 68 U/L (29-168); Calc. Creatinine Clearance 0 mL/min (70-130); Calcium 6.3 mg/dL (7.8-10.44); Carbon Dioxide 12 mmol/L (22-29); Chloride 115 mmol/L (98-107); Estimated GFR-MDRD 11; Globulin 4.3 g/dL (2.4-3.5); Glucose 127 mg/dL (70-105); Potassium 4.2 mmol/L (3.5-5.1); Sodium 138 mmol/L (136-145)
[2017-09-25 21:59] LABS: CKMB 0.6 ng/mL (0-6.6); Troponin I Less than 0.010 ng/mL (< 0.028)
--- NOTE | 2017-09-25 22:03 | CT ---
CT BRAIN 09/25/17 PROVIDED CLINICAL HISTORY: Facial tingling. FINDINGS: Comparison is made with the study dated 06/21/17. Ventricular system appears normal in size and morph ology. There is no evidence for intracranial hemorrhage or mass effect. Remote lacunar infarction inv olves the right gonsalez radiata. Remote infarction is noted involving the left cerebellar hemisphere. The extracranial soft tissue and osseous structures appear unremarkable. IMPRESSION: No evidence for intracranial hemorrhage or mass effect. Findings discussed with Dr. Arteaga via telephone at 8:38 p.m., 09/25/17. Code CR POS: [facility]
[2017-09-26 01:52] VITALS: BMI 41.7
[2017-09-26] MEDS ORDERED: cloNIDine 0.1 MG TAB PO PRN (07:05)
[2017-09-26] MEDS ORDERED: Labetalol HCl 100 MG/20 ML VIAL SLOW IVP PRN (07:05)
[2017-09-26] MEDS ORDERED: Calcium Carbonate 500 MG ChewTAB PO PRN (07:07)
[2017-09-26] MEDS ORDERED: Senokot 8.6 MG TAB PO PRN (07:07)
[2017-09-26] MEDS ORDERED: Ondansetron ODT 4 MG TAB PO PRN (07:07)
[2017-09-26] MEDS ORDERED: Acetaminophen 325 MG TAB PO PRN (07:07)
[2017-09-26] MEDS ORDERED: Ondansetron HCl/PF 4 MG/2 ML Vial IVP PRN (07:07)
[2017-09-26 08:18] LABS: Lactic Acid 0.6 mmol/L (0.5-2.2)
[2017-09-26 08:22] LABS: Anion Gap 12 mmol/L (10-20); BUN (Urea Nitrogen) 79 mg/dL (9.8-20.1); Calc. Creatinine Clearance 25 mL/min (70-130); Calcium 6.4 mg/dL (7.8-10.44); Carbon Dioxide 15 mmol/L (22-29); Chloride 116 mmol/L (98-107); Estimated GFR-MDRD 11; Glucose 79 mg/dL (70-105); Magnesium 1.1 mg/dL (1.6-2.6); Potassium 4.3 mmol/L (3.5-5.1); Sodium 139 mmol/L (136-145)
[2017-09-26 08:27] LABS: Troponin I Less than 0.010 ng/mL (< 0.028)
[2017-09-26] MEDS ORDERED: Magnesium Sulfate 1 GM, Admixture Fee 1 EACH in Sodium Chloride 0.9% 100 ML IVPB SCH (08:45)
[2017-09-26] MEDS ORDERED: NIFEdipine XL 30 MG TAB PO SCH (09:00)
[2017-09-26] MEDS ORDERED: Docusate 100 MG CAP PO SCH (09:00)
[2017-09-26] MEDS ORDERED: Carvedilol 25 MG TAB PO SCH (09:00)
[2017-09-26] MEDS ORDERED: Aspirin 325 mg Enteric Coated Tablet PO SCH (09:00)
[2017-09-26] MEDS ORDERED: Heparin 5,000 UNITS/ML VIAL SC SCH (09:00)
[2017-09-26 10:39] LABS: Folate (Folic Acid) 3.3 ng/mL (7.0-31.4)
--- NOTE | 2017-09-26 10:51 | HP ---
DATE OF ADMISSION: 09/26/2017 PRIMARY CARE: [facility]. CHIEF COMPLAINT: Stroke-like symptoms. HISTORY OF PRESENT ILLNESS: The patient is a 57-year-old female with chronic kidney disease stage 5, coronary artery disease, and hypertension, who presented to the emergency room with stroke like symptoms. Patient was admitted at this facility in 06/18/2017 with left arm numbness and facial tingling. An M RI of the brain was negative at that time. She was advised to continue 81 mg aspirin. Over the past few days, patient has intermittent tingling of the left half of the face and left upper extremity. Yesterday, her symptoms got worse, for which she presented to the emergency room. She a lso had some headache; however, denies any double vision, facial asymmetry, weakness, numbness of any of her extremities. She denies any chest pain, palpitations, or syncope. Patient is compliant with 81 mg aspirin. In the emergency room, her initial CT scan of the brain without contrast was negative. Her initial v ital signs showed temperature 98.4, respirations 20, pulse of 87, blood pressure 137/74 with O2 satur ation 99% on room air. She received 324 mg aspirin in the emergency room. Her NIH in the emergency room was 1. PAST MEDICAL HISTORY: 1. Coronary artery disease with last cardiac catheterization in 06/2016. 2. Chronic diastolic heart failure. 3. Chronic kidney disease stage [address] Montilla. 4. Chronic metabolic acidosis secondary to renal dysfunction. 5. Hypertension. 6. Right neck mass found last admission. 7. History of TIA. PAST SURGICAL HISTORY: 1. Cholecystectomy. 2. Cardiac catheterization. 3. Left upper extremity AV fistula placement. ALLERGIES: Patient is allergic to HYDRALAZINE, SUDAFED, and DEXTROMETHORPHAN. CURRENT HOME MEDICATIONS: 81 mg aspirin daily, clonidine as needed, carvedilol 25 mg b.i.d., Lasix a s needed, Imdur ER 120 mg daily, Procardia extended release 30 mg b.i.d., and simvastatin 40 mg at [facility]. SOCIAL HISTORY: Patient currently lives at home with her family in [place]. No alcohol, tobacco, o r drug use reported. She has cataracts and is waiting for eye surgery. She is more or less independ ent of activities of daily living. FAMILY HISTORY: Positive for hypertension. REVIEW OF SYSTEMS: The following complete review of systems was negative, unless otherwise mentioned in the HPI or below: Constitutional: Weight loss or gain, ability to conduct usual activities. Skin: Rash, itching. Eyes: Double vision, pain. ENT/Mouth: Nose bleeding, neck stiffness, pain, tenderness. Cardiovascular: Palpitations, dyspnea on exertion, orthopnea. Respiratory: Shortness of breath, whee zing, cough, hemoptysis, fever or night sweats. Gastrointestinal: Poor appetite, abdominal pain, heartburn, nausea, vomiting, constipation, or diarrh ea. Genitourinary: Urgency, frequency, dysuria, nocturia. Musculoskeletal: Pain, swelling. Neurolo gic/Psychiatric: Anxiety, depression. Allergy/Immunologic: Skin rash, bleeding tendency. PHYSICAL EXAMINATION: VITAL SIGNS: As discussed above. GENERAL: A 57-year-old female in no apparent distress. Denies any symptoms at this time. HEENT: Head is atraumatic, normocephalic. Sclerae are anicteric. Moist mucous membrane, no oral le pete. NECK: Supple, no JVD appreciated. No carotid bruit. LUNGS: Clear to auscultation bilaterally. No wheezing, rales, or rhonchi. HEART: S1 and S2 present. Regular rate and rhythm. No significant rubs, gallops, or murmurs noted. ABDOMEN: Soft, nontender, bowel sounds present. EXTREMITIES: No edema or calf tenderness. NEUROLOGIC: Grossly nonfocal, moves all four extremities. PSYCHIATRY: Alert, awake, oriented x3. SKIN: Warm and dry. LYMPH NODES: No palpable lymph nodes in the neck. PERIPHERAL VASCULAR: Radial pulses palpable bilaterally. MUSCULOSKELETAL: No joint swelling or tenderness. LABORATORY FINDINGS: Magnesium 1.1 with creatinine of 4.09, BUN 79, bicarbonate of 15, H&H was 8.9/2 7.4. Troponins were negative. Lactic acid was negative. Chest x-ray by my review was negative for infiltrate. CT scan of the brain by my review was negative for acute CVA. EKG by my review showed sinus rhythm without significant ST-T wave changes. IMPRESSION: 1. Transient ischemic attack. 2. Coronary artery disease on 81 mg aspirin. 3. Hypertension. 4. Chronic kidney disease stage 5. 5. Chronic diastolic heart failure. 6. History of right neck mass. Primary care physician advised to follow. 7. Chronic anemia, probably secondary to renal insufficiency. 8. Hypomagnesemia. 9. Chronic metabolic acidosis. 10. Morbid obesity with a BMI of 41.8. PLAN: The patient will be monitored in the stroke unit. We will get Stroke Team involved. Neurolog y will be consulted. We will change aspirin to 325 mg daily. Continue statins. Subacute heparin fo r DVT prophylaxis. Patient has appointment with Dr. Montilla after 1 week. We will replace magnesium. Resume her home antihypertensives. We will get an MRI of the brain. We will also check vitamin B1 2, folic acid. Plan of care was discussed with the patient. She stated understanding.
[2017-09-26] MEDS ORDERED: Cyanocobalamin (Vitamin B-12) 1,000 MCG TAB PO SCH (11:00)
[2017-09-26] MEDS ORDERED: Folic Acid 1 MG TAB PO SCH (11:00)
[2017-09-26 15:43] VITALS: BP 129/61; TEMP 98.3
--- NOTE | 2017-09-26 16:05 | MRI ---
MRI BRAIN NONCONTRAST: HISTORY: TIA. FINDINGS: There is no evidence of acute intracranial hemorrhage or infarct. Old wedge-shaped infarct is presen t at the left cerebellar hemisphere. No mass effect or shift of midline structures. Chronic ischemi c small vessel disease is apparent within the periventricular white matter and krys. There is no mas s effect or shift of midline structures. IMPRESSION: No acute intracranial abnormalities are demonstrated. POS: [facility]
--- NOTE | 2017-09-26 20:40 | CON ---
DATE OF CONSULTATION: 09/26/2017. CONSULTING PHYSICIAN: Hospitalist Service. IMPRESSION: 1. Benign tingling of the hands and face, possibly secondary to elevated blood pressure and carpal t unnel syndrome. 2. 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 3. Hypertension. 4. Chronic anemia requiring transfusion. 5. Chronic renal insufficiency. PLAN: 1. Continue current medications. 2. The patient can be seen in the office for nerve conduction studies. Ms. Medrano is a 57-year-old female who came in with complaints of left facial and bilateral hand tingling. This has been coming and going prior to admission. There is no associated slurred sp eech or difficulty swallowing. It is not associated with a headache, nausea, vomiting, vertigo, weak ness, or incoordination. She had initial CT of the brain, which was unremarkable. MRI of the brain did not show any evidence of acute ischemic changes, but an old left cerebellar infarct as well as ex tensive small-vessel disease bilaterally. LABORATORY STUDIES: Showed a low H&H and an elevated BUN and creatinine. She notes that when her bl ood pressure goes up, she tends to get the tingling in her face. PAST MEDICAL HISTORY: As listed above. ALLERGIES: HYDRALAZINE and NYQUIL. SOCIAL HISTORY: Unremarkable. FAMILY HISTORY: Unremarkable. REVIEW OF SYSTEMS: Otherwise negative. PHYSICAL EXAMINATION: GENERAL: She is a well-nourished, middle-aged woman sitting up in bed in no distress. VITAL SIGNS: Stable. She is afebrile. HEENT: Pupils are equal and reactive. Conjunctivae clear. Oropharynx clear. NECK: Supple. EXTREMITIES: No cyanosis, clubbing, or edema. NEUROLOGIC: She is alert and appropriate. Her speech is fluent and clear. Cranial nerves II-XII ar e intact. Motor exam showed symmetric strength without fix or drift. Cerebellar testing showed norm al [id number] and rapid alternating movements. Sensation in the hands was intact. Gait is stead y. MRI images were reviewed. EKG shows a sinus rhythm. SUMMARY: This is a middle-aged woman with some intermittent tingling, but does not follow a distribu tion consistent with an ischemic event. Her exam is unremarkable. We will continue management of he r ongoing medical problems and I can follow up with her in the office.
[2017-09-26] MEDS ORDERED: Atorvastatin Calcium 10 MG TAB PO SCH (21:00)
--- NOTE | 2017-09-27 10:35 | DIS ---
DATE OF DISCHARGE: 09/26/2017 DISCHARGE DISPOSITION: Home. BRIEF HOSPITAL COURSE: The patient is a 57-year-old female with hypertension, coronary artery diseas e, chronic diastolic heart failure and chronic kidney disease stage 5, presented to the hospital with stroke-like symptoms. Please refer to the history and physical dictated by me earlier today for fur ther details. The patient was admitted to the stroke unit with a diagnosis of TIA. MRI of the brain was negative f or acute CVA. The patient was evaluated by Neurology, Dr. Ann. According to Dr. Ann, her sy mptoms probably secondary to elevated blood pressure and carpal tunnel syndrome. Dr. Ann recomme nded to continue current medications. The patient had an echocardiogram last year for this reason, i t was not repeated. Carotid Doppler last year was negative for hemodynamically significant stenosis. She has been cleared by Neurology for discharge. No changes in her medications were made.
== END 2017-09-26 19:25 | disposition home or self-care (01) ==
LOC: ERS 20:21 → 2SW 09-26 01:17
PROVIDERS: ADMIT Internal Medicine Infectious Disease; ATTEND Internal Medicine Infectious Disease
DX: R20.2 Paresthesia of skin (principal); I13.2 Hypertensive heart and chronic kidney disease with heart failure and with stage 5 chronic kidney disease, or end stage renal disease; N18.5 Chronic kidney disease, stage 5; I50.32 Chronic diastolic (congestive) heart failure; D63.1 Anemia in chronic kidney disease; I25.10 Atherosclerotic heart disease of native coronary artery without angina pectoris; R22.1 Localized swelling, mass and lump, neck; E87.2 Acidosis; E83.42 Hypomagnesemia; H26.9 Unspecified cataract; E66.01 Morbid (severe) obesity due to excess calories; Z68.41 Body mass index [BMI] 40.0-44.9, adult; Z88.8 Allergy status to other drugs, medicaments and biological substances; Z79.82 Long term (current) use of aspirin; Z79.899 Other long term (current) drug therapy; Z90.49 Acquired absence of other specified parts of digestive tract; Z98.890 Other specified postprocedural states; Z86.73 Personal history of transient ischemic attack (TIA), and cerebral infarction without residual deficits
CPT/HCPCS: 36415; 36416; 70450; 70551; 71045; 80048; 80053; 82550; 82553; 82607; 82746; 83605; 83735; 84484; 85025; 85610; 85730; 93005; 96365; G0378; G8978-GP-CI; G8979-GP-CI; G8980-GP-CI; G8996-GN-CH; G8997-GN-CH; J1644; J3475; J7050

== ENCOUNTER 2018-02-10 11:51 | Emergency (ER) | payer BC, SELFPAY ==
[2018-02-10] MEDS ORDERED: Ondansetron ODT 4 MG TAB ONE ×2 (12:25)
[2018-02-10 12:35] LABS: #Basophils 0.1 thou/uL (0.0-0.2); #Eosinphils 0.1 thou/uL (0.0-0.7); #Lymphocytes 1.7 thou/uL (1.20-3.40); #Monocytes 0.6 thou/uL (0.11-0.59); #Neutrophils 5.5 thou/uL (1.40-6.50); %Basophils 1.2 % (0.0-1.0); %Eosinophils 0.9 % (0.0-10.0); %Lymphocytes 21.8 % (21.0-51.0); %Monocytes 7.4 % (0.0-10.0); %Neutrophils 68.8 % (42.0-75.0); Hemoglobin 9.7 g/dL (12.0-16.0); Mean Corpuscular HGB CONC 34.6 g/dL (32.0-36.0); Mean Corpuscular Hemoglobin 32.4 pg (27.0-31.0); Mean Corpuscular Volume 93.7 fl (81.0-99.0); Mean Platelet Volume 7.5 fL (7.4-10.4); Platelet Count 167 thou/uL (130-400); RBC Distribution Width 12.7 % (11.5-14.5); Red Blood Cell (RBC) Count 2.98 mill/uL (4.20-5.40)
[2018-02-10 12:42] LABS: Anion Gap 18 mmol/L (10-20); BUN (Urea Nitrogen) 69 mg/dL (9.8-20.1); Calc. Creatinine Clearance 0 mL/min (70-130); Calcium 7.1 mg/dL (7.8-10.44); Carbon Dioxide 12 mmol/L (22-29); Chloride 115 mmol/L (98-107); Estimated GFR-MDRD 10; Glucose 111 mg/dL (70-105); Potassium 4.4 mmol/L (3.5-5.1); Sodium 141 mmol/L (136-145)
[2018-02-10 12:46] LABS: CKMB 0.8 ng/mL (0-6.6); Troponin I Less than 0.010 ng/mL (< 0.028)
[2018-02-10] MEDS ORDERED: Calcium Chloride 1 GM/10 ML Abboject SYRINGE ONE (12:49)
[2018-02-10] MEDS ORDERED: Furosemide 40 MG TAB ONE (13:15)
--- NOTE | 2018-02-10 13:30 | RAD ---
CHEST 1 VIEW: Date: 02/10/18 HISTORY: Emergency exam. Dizziness. Mental status change. Elevated blood pressure. COMPARISON: Radiograph dated 09/25/17. FINDINGS: Lungs are clear. No pneumothorax or effusion. Cardiac silhouette and mediastinal contours within norm al limits. IMPRESSION: No acute intrathoracic abnormality. POS: [facility]
== END 2018-02-10 13:22 | disposition home or self-care (01) ==
LOC: SCSER 11:51
DX: R42 Dizziness and giddiness (principal); T46.5X5A Adverse effect of other antihypertensive drugs, initial encounter; I10 Essential (primary) hypertension; E83.51 Hypocalcemia; E78.5 Hyperlipidemia, unspecified; Z86.73 Personal history of transient ischemic attack (TIA), and cerebral infarction without residual deficits; F41.9 Anxiety disorder, unspecified; F32.9 Major depressive disorder, single episode, unspecified; Z79.899 Other long term (current) drug therapy; Z79.82 Long term (current) use of aspirin
CPT/HCPCS: 71045; 80048; 82553; 84484; 85025; 93005; 96374; Q0162

== ENCOUNTER 2018-02-11 16:17 | Emergency (ER) | payer BC ==
[2018-02-11] MEDS ORDERED: Ondansetron ODT 4 MG TAB ONE (16:24)
[2018-02-11 17:32] LABS: ALT (SGPT) 7 U/L (8-55); AST (SGOT) 13 U/L (5-34); Alkaline Phosphatase 117 U/L (40-150); Anion Gap 18 mmol/L (10-20); BUN (Urea Nitrogen) 74 mg/dL (9.8-20.1); Bilirubin, Total 0.4 mg/dL (0.2-1.2); Calc. Creatinine Clearance 0 mL/min (70-130); Carbon Dioxide 12 mmol/L (22-29); Chloride 115 mmol/L (98-107); Estimated GFR-MDRD 9; Globulin 4.4 g/dL (2.4-3.5); Glucose 115 mg/dL (70-105); Magnesium 1.3 mg/dL (1.6-2.6); Potassium 4.5 mmol/L (3.5-5.1); Protein, Total 8.4 g/dL (6.0-8.3); Sodium 140 mmol/L (136-145)
[2018-02-11] MEDS ORDERED: Magnesium Chloride 64 MG TAB PO SCH (18:00)
[2018-02-11] MEDS ORDERED: Calcium Carbonate + Vit D 1 TAB PO SCH (18:00)
== END 2018-02-11 18:30 | disposition home or self-care (01) ==
LOC: ERS 16:17
DX: E83.51 Hypocalcemia (principal); E78.5 Hyperlipidemia, unspecified; Z86.73 Personal history of transient ischemic attack (TIA), and cerebral infarction without residual deficits; I10 Essential (primary) hypertension; F41.9 Anxiety disorder, unspecified; F32.9 Major depressive disorder, single episode, unspecified; Z79.82 Long term (current) use of aspirin; Z79.899 Other long term (current) drug therapy
CPT/HCPCS: 36415; 80053; 83735; 93005; Q0162

== ENCOUNTER 2018-05-17 02:10 | Inpatient (IN) | payer MEDICARE, BC ==
[2018-05-17] MEDS ORDERED: Calcium Acetate 667 MG CAP PO SCH ×2 (03:15→12:00)
[2018-05-17 04:09] VITALS: BMI 42.1
[2018-05-17] MEDS ORDERED: Acetaminophen 325 MG TAB PO PRN (06:11)
[2018-05-17] MEDS ORDERED: Ondansetron HCl/PF 4 MG/2 ML Vial IVP PRN (06:11)
[2018-05-17] MEDS ORDERED: Magnesium 2 GM/50 ML 1 GM in Premix Bag 1 BAG IVPB SCH (06:30)
[2018-05-17] MEDS ORDERED: Furosemide 40 MG TAB PO SCH (09:00)
[2018-05-17] MEDS: NIFEdipine XL 30 MG TAB PO SCH (09:09)
[2018-05-17] MEDS ORDERED: Calcium Gluconate 4.6 MEQ in Sodium Chloride 0.9% 100 ML IVPB SCH (09:10)
[2018-05-17] MEDS: Carvedilol 25 MG TAB PO SCH ×2 (09:10→17:25)
[2018-05-17] MEDS: Aspirin 81 mg Enteric Coated Tablet PO SCH (09:10)
[2018-05-17] MEDS: Heparin 5,000 UNITS/ML VIAL SC SCH ×3 (09:10→20:50)
--- NOTE | 2018-05-17 09:18 | PDOC.PN ---
- Subjective Encounter Start Date: 05/17/18 Encounter Start Time: 08:15 Subjective: no chest pain or palp -: facial tingling and numbness has resolved but still has it in left UE - Objective Resuscitation Status: Resuscitation Status FULL:Full Resuscitation MAR Reviewed: Yes Vital Signs & Weight: Vital Signs (12 hours) Temp Pulse Resp BP Pulse Ox 05/17/18 08:00 98.1 F 72 18 132/61 94 L 05/17/18 04:19 98 05/17/18 03:55 98 05/17/18 03:47 97.8 F 75 18 130/60 98 Weight Weight 230 lb 8 oz I&O: 05/16/18 05/17/18 05/18/18 06:59 06:59 06:59 Intake Total 300 Output Total 0 Balance 300 Phys Exam - Physical Examination HEENT: moist MMs right eye dense cataract Neck: no JVD, supple Respiratory: no wheezing, no rales Cardiovascular: RRR, no significant murmur Gastrointestinal: soft, non-tender, positive bowel sounds Musculoskeletal: no edema, pulses present Neurological: non-focal, moves all 4 limbs Psychiatric: A&O x 3 Dx/Plan (1) Hypocalcemia Code(s): E83.51 - HYPOCALCEMIA Status: Acute (2) Acute on chronic kidney failure Code(s): N17.9 - ACUTE KIDNEY FAILURE, UNSPECIFIED; N18.9 - CHRONIC KIDNEY DISEASE, UNSPECIFIED Status: Acute Qualifiers: Acute renal failure type: unspecified Chronic kidney disease stage: stage 5 , not on chronic dialysis Qualified Code(s): N17.9 - Acute kidney failure, unspecified; N18.5 - Chronic kidney disease, stage 5 (3) Anemia of renal disease Code(s): D63.1 - ANEMIA IN CHRONIC KIDNEY DISEASE Status: Chronic (4) Hyperparathyroidism Code(s): E21.3 - HYPERPARATHYROIDISM, UNSPECIFIED Status: Chronic Comment: sec to renal disease ? (5) Anxiety and depression Code(s): F41.9 - ANXIETY DISORDER, UNSPECIFIED; F32.9 - MAJOR DEPRESSIVE DISORDER, SINGLE EPISODE, UNSPECIFIED Status: Chronic (6) CKD (chronic kidney disease) stage 5, GFR less than 15 ml/min Code(s): N18.5 - CHRONIC KIDNEY DISEASE, STAGE 5 Status: Chronic (7) Chronic diastolic heart failure Code(s): I50.32 - CHRONIC DIASTOLIC (CONGESTIVE) HEART FAILURE Status: Chronic (8) Coronary artery disease Code(s): I25.10 - ATHSCL HEART DISEASE OF [place] CORONARY ARTERY W/O ANG PCTRS Status: Chronic Qualifiers: Coronary Disease-Associated Artery/Lesion type: [place] artery [place] vs. transplanted heart: [place] heart Associated angina: without angina Qualified Code(s): I25.10 - Atherosclerotic heart disease of [place] coronary artery without angina pectoris Comment: Medical mgmt (9) DM type 2 (diabetes mellitus, type 2) Status: Chronic Qualifiers: Diabetes mellitus penitentiary insulin use: without intermodal customer service use Diabetes mellitus complication status: with kidney complications Diabetes mellitus complication detail: with chronic kidney disease Chronic kidney disease stage : stage 5, not on chronic dialysis Qualified Code(s): E11.22 - Type 2 diabetes mellitus with diabetic chronic kidney disease; N18.5 - Chronic kidney disease, stage 5 Comment: diet controlled (10) Hyperlipidemia Code(s): E78.5 - HYPERLIPIDEMIA, UNSPECIFIED Status: Chronic Qualifiers: Hyperlipidemia type: unspecified Qualified Code(s): E78.5 - Hyperlipidemia , unspecified (11) Hypertension Code(s): I10 - ESSENTIAL (PRIMARY) HYPERTENSION Status: Chronic Qualifiers: Hypertension type: essential hypertension Qualified Code(s): I10 - Essential (primary) hypertension (12) Lupus (systemic lupus erythematosus) Code(s): M32.9 - SYSTEMIC LUPUS ERYTHEMATOSUS, UNSPECIFIED Status: Chronic (13) Metabolic acidosis Code(s): E87.2 - ACIDOSIS Status: Chronic Comment: Metabolic acidosis secondary to INDIRA/CKD, Sodium Bicarbonate 325mg BID (14) Obesity Code(s): E66.9 - OBESITY, UNSPECIFIED Status: Chronic - Plan raul gluconate 1 amp iv x1, tums tid, has ekg changes due to low calcium -: usg thyroid/parathyroid -: intact PTH levels, phoslo -: nephrology consultation, might need to initiate HD? -: continue home meds, once calcium levels stabilize may tx to medical floor * . Will need outpt ophthal appt for cataract surgery on right eye with complete blindness. Review of Systems - Medications/Allergies Allergies/Adverse Reactions: Allergies Allergy/AdvReac Type Severity Reaction Status Date / Time dextromethorphan HBr Allergy Verified 05/17/18 04:19 [From NyQuil] doxylamine succinate Allergy Verified 05/17/18 04:19 [From NyQuil] hydralazine Allergy Anaphylaxis Verified 05/17/18 04:19 pseudoephedrine HCl Allergy Verified 05/17/18 04:19 [From NyQuil] Medications: Current Medications Acetaminophen (Tylenol) 650 mg PO Q4H PRN PRN Reason: Headache/Fever or Pain Aspirin (Ecotrin) 81 mg PO DAILY COUNTS [facility]CLUDE 234 BEDS AT [facility] Last Admin: 05/17/18 09:10 Dose: 81 mg Atorvastatin Calcium (Lipitor) 20 mg PO HS COUNTS INCLUDE 234 BEDS AT THE [facility] Calcium Acetate (Phoslo) 1,334 mg PO TID-[facility] Calcium Carbonate (Tums) 1,000 mg PO BID COUNTS INCLUDE 234 BEDS AT THE [facility] Carvedilol (Coreg) 25 mg PO BID-[facility] Last Admin: 05/17/18 09:10 Dose: 25 mg Clonidine (Catapres) 0.3 mg PO HS COUNTS INCLUDE 234 BEDS AT THE [facility] Furosemide (Lasix) 40 mg PO DAILY COUNTS INCLUDE 234 BEDS AT THE [facility] Last Admin: 05/17/18 09:10 Dose: 40 mg Heparin Sodium (Porcine) (Heparin) 5,000 units SC TID COUNTS INCLUDE 234 BEDS AT THE [facility] Last Admin: 05/17/18 09:10 Dose: 5,000 units Calcium Gluconate 4.6 meq/ (Sodium Chloride) 110 mls @ 200 mls/hr IVPB ONE COUNTS INCLUDE 234 BEDS AT THE [facility] Stop: 05/17/18 11:00 Nifedipine (Procardia Xl) 30 mg PO DAILY COUNTS INCLUDE 234 BEDS AT THE [facility] Last Admin: 05/17/18 09:09 Dose: 30 mg Ondansetron HCl (Zofran) 4 mg IVP Q6H PRN PRN Reason: Nausea/Vomiting
--- NOTE | 2018-05-17 10:13 | HP ---
PRIMARY CARE PHYSICIAN: Patient goes to [facility]. TAX FORM PREPARER: Dr. Montilla. CODE STATUS: FULL CODE. TIME OF EVALUATION: 06:00 a.m. CHIEF COMPLAINT: Cramps in extremities and face. HISTORY OF PRESENT ILLNESS: This is a 57 years old female patient with past medical history of end-stage renal disease. The patient has been off her dialysis, and actually has an AV graft done. Patient follows with Dr. Montilla. Also, has a history of hypertension, diabetes, hyperlipidemia, previous strokes , lupus, came to the hospital today after having cramps in bilateral sides of the face and also upper extremities. The patient had the symptoms for the past 3 days, today getting worse, but no clear triggers, no alleviating factors, on and off. The patient was found to have low magnesium and low calcium. Dr. Montilla was consulted and recommended to be . He will see the patient as inpatient. Symptoms are reported as [id number]. REVIEW OF SYSTEMS: Constitutional: No fever or chills or generalized weakness. Respiratory: No cough, sputum production, shortness of breath. Cardiovascular: No chest pain or palpitations. Gastrointestinal: No nausea, no vomiting, diarrhea, or abdominal pain. ANALYST BUSINESS ANALYSIS: No dizziness headache. Patient reported having numbness and tingling in bilateral eyes and sides of the face and also bilateral extremities. Genitourinary: No burning with urination. Extremities: No leg swelling. All other systems were reviewed and negative except for the finding mentioned above. PAST MEDICAL HISTORY: As mentioned in the HPI. PAST SURGICAL HISTORY: Patient had cholecystectomy, tubal ligation, stent placed, left upper arm fistula. PSYCHIATRIC HISTORY: Patient has a history of anxiety and depression. SOCIAL HISTORY: No drug use, no smoking history, no alcohol. FAMILY HISTORY : Reviewed and non contributory for current presentation. KNOWN ALLERGIES: HYDRALAZINE, and NYQUIL. REPORTED MEDICATIONS: Aspirin, carvedilol, simvastatin, furosemide, nifedipine , clonidine. PHYSICAL EXAMINATION: VITAL SIGNS: On presentation, blood pressure 133/66, with heart rate 86, respiratory rate 16, temperature 98.3, pain 0/10, oxygen saturation 96% on room air. GENERAL APPEARANCE: Patient is alert and oriented, in no acute distress. HEENT: Eyes, normal conjunctivae. Moist oral mucosa. Eyes, anicteric. NECK: No JVD. RESPIRATORY: Bilateral air entry. No rales, no wheezes. Symmetric expansion. CARDIOVASCULAR: Normal rate, regular rhythm. No murmurs, no gallop. No edema. ABDOMEN: Soft, normal bowel sounds. MUSCULOSKELETAL: Baseline range of motion and strength. No tenderness. SKIN: Warm and intact. No pallor, no rash, no redness. Peripheral pulses are present. Capillary refill seems to be intact. NEUROLOGIC: The patient has bilateral change in sensation on and off, not present during examination. No evidence of any new focal weakness. Baseline speech. Cranial nerve seems to be intact. PSYCHIATRIC: The patient has good mood. No anxiety, oriented, optimal judgment. IMAGING: Brain CT was done and it showed no significant acute abnormalities. LABORATORY DATA: Labs were reviewed. White count is 9.1, hemoglobin is 8.3. When reviewing old records, the last one is 9.2; it has been in that levels chronically. MCV is 98.8, the platelet count was 176. Chemistry: Sodium 141, potassium 4.5, chloride 116, carbon dioxide was 14, anion gap 16, BUN 16, creatinine 4.0, has been about the same level when compared with the previous records. GFR 11, glucose 112, calcium 6.6 and previous admission was 7.1. Phosphorus 5.6, magnesium 1.4. LFTs were normal. Troponin was negative. ASSESSMENT AND PLAN: The patient was placed in the hospital with following medical problems: 1. Hypocalcemia, likely secondary to end-stage renal disease and secondary hyperparathyroidism. Dr. Montilla was called from [facility] and recommended to send the patient to the hospital to be admitted. He will come and see the patient. It seems like they are planning to do dialysis on the patient. 2. Hypomagnesemia, magnesium 1.4. We will replace with calcium, 1 gram ordered. 3. End-stage renal disease. The patient is on hemodialysis. Dr. Montilla has been consulted. Treatment as above. 4. Uncontrolled diabetes. The patient has hyperglycemia with a glucose of 112 , reconcile home medications, sliding scale for optimal control. 5. Controlled hypertension, reconcile home medications. Adjust treatment as needed. 6. Deep venous thrombosis prophylaxis. 7. History of coronary artery disease. We will reconcile home medications. This is chronic, seems to be stable. 8. Hyperlipidemia, low cholesterol diet is advised. We will reconcile home medications. MTDD
[2018-05-17] MEDS ORDERED: Calcium Acetate 667 MG CAP PO PRN (14:13)
--- NOTE | 2018-05-17 14:48 | ULT ---
LIMITED SOFT TISSUE NECK ULTRASOUND: Date: 05/17/18 PROVIDED CLINICAL HISTORY: Severe hypocalcemia. FINDINGS: Limited interrogation of the soft tissues of the right lateral neck demonstrates a nonspecific circum scribed area of altered mass-like echogenicity present measuring about 2.1 x 1.1 cm with internal raul cifications. This is incompletely characterized on the basis of this study. If there is concern for p arathyroid adenoma, consider a combination of CT soft tissue neck with adenoma protocol and nuclear m edicine imaging. IMPRESSION: As above. POS: COLE
[2018-05-17] MEDS: Calcium Acetate 667 MG CAP PO SCH (17:25)
[2018-05-17] MEDS: Calcium Carbonate 500 MG ChewTAB PO SCH (20:50)
[2018-05-17] MEDS ORDERED: Atorvastatin Calcium 20 MG TAB PO SCH (21:00)
[2018-05-17] MEDS ORDERED: cloNIDine 0.3 MG TAB PO SCH (21:00)
[2018-05-18 05:47] LABS: #Basophils 0.1 thou/uL (0.0-0.2); #Eosinphils 0.1 thou/uL (0.0-0.7); #Lymphocytes 2.3 thou/uL (1.20-3.40); #Monocytes 0.5 thou/uL (0.11-0.59); #Neutrophils 3.9 thou/uL (1.40-6.50); %Basophils 1.1 % (0.0-1.0); %Eosinophils 1.9 % (0.0-10.0); %Lymphocytes 33.4 % (21.0-51.0); %Monocytes 7.2 % (0.0-10.0); %Neutrophils 56.5 % (42.0-75.0); Hemoglobin 7.9 g/dL (12.0-16.0); Mean Corpuscular HGB CONC 32.1 g/dL (32.0-36.0); Mean Corpuscular Hemoglobin 31.5 pg (27.0-31.0); Platelet Count 190 thou/uL (130-400); RBC Distribution Width 12.3 % (11.5-14.5); White Blood Cell (WBC) Count 6.9 thou/uL (4.8-10.8)
[2018-05-18 05:52] LABS: Anion Gap 16 mmol/L (10-20); BUN (Urea Nitrogen) 63 mg/dL (9.8-20.1); Calc. Creatinine Clearance 27 mL/min (70-130); Calcium 7.2 mg/dL (7.8-10.44); Carbon Dioxide 15 mmol/L (22-29); Chloride 114 mmol/L (98-107); Estimated GFR-MDRD 12; Glucose 97 mg/dL (70-105); Potassium 4.9 mmol/L (3.5-5.1); Sodium 140 mmol/L (136-145)
[2018-05-18 08:54] VITALS: BP 143/67; TEMP 96.5
[2018-05-18] MEDS ORDERED: Furosemide 20 MG TAB PO SCH (09:00)
[2018-05-18] MEDS: Calcium Carbonate 500 MG ChewTAB PO SCH (09:27)
[2018-05-18] MEDS: Aspirin 81 mg Enteric Coated Tablet PO SCH (09:28)
[2018-05-18] MEDS: NIFEdipine XL 30 MG TAB PO SCH (09:29)
[2018-05-18] MEDS: Carvedilol 25 MG TAB PO SCH (09:29)
[2018-05-18] MEDS: Heparin 5,000 UNITS/ML VIAL SC SCH (09:32)
[2018-05-18] MEDS: Calcium Acetate 667 MG CAP PO SCH (09:32)
--- NOTE | 2018-05-18 10:04 | PDOC.PN ---
- Subjective Encounter Start Date: 05/18/18 Encounter Start Time: 08:00 Subjective: no sob or chest pain -: tingling and numbess of face and left UE is resolved -: is ambulating in room - Objective Resuscitation Status: Resuscitation Status FULL:Full Resuscitation MAR Reviewed: Yes Vital Signs & Weight: Vital Signs (12 hours) Temp Pulse Resp BP BP Pulse Ox 05/18/18 09:29 67 05/18/18 08:05 96.5 F L 71 16 143/67 H 99 05/18/18 04:00 98 F 63 12 138/63 94 L Weight Admit Weight 230 lb 8 oz Weight 235 lb 9 oz I&O: 05/17/18 05/18/18 05/19/18 06:59 06:59 06:59 Intake Total 300 318 Output Total 0 1150 Balance 300 -832 Result Diagrams: 05/18/18 04:47 05/18/18 04:47 Phys Exam - Physical Examination HEENT: PERRLA, moist MMs Neck: no JVD, supple Respiratory: no wheezing, no rales Cardiovascular: RRR, no significant murmur Gastrointestinal: soft, non-tender, positive bowel sounds Musculoskeletal: pulses present left UE fistula+ Neurological: non-focal, moves all 4 limbs Psychiatric: normal affect, A&O x 3 Dx/Plan (1) Hypocalcemia Code(s): E83.51 - HYPOCALCEMIA Status: Acute (2) Acute on chronic kidney failure Code(s): N17.9 - ACUTE KIDNEY FAILURE, UNSPECIFIED; N18.9 - CHRONIC KIDNEY DISEASE, UNSPECIFIED Status: Acute Qualifiers: Acute renal failure type: unspecified Chronic kidney disease stage: stage 5 , not on chronic dialysis Qualified Code(s): N17.9 - Acute kidney failure, unspecified; N18.5 - Chronic kidney disease, stage 5 (3) Anemia of renal disease Code(s): D63.1 - ANEMIA IN CHRONIC KIDNEY DISEASE Status: Chronic (4) Hyperparathyroidism Code(s): E21.3 - HYPERPARATHYROIDISM, UNSPECIFIED Status: Chronic Comment: sec to renal disease ? (5) Anxiety and depression Code(s): F41.9 - ANXIETY DISORDER, UNSPECIFIED; F32.9 - MAJOR DEPRESSIVE DISORDER, SINGLE EPISODE, UNSPECIFIED Status: Chronic (6) CKD (chronic kidney disease) stage 5, GFR less than 15 ml/min Code(s): N18.5 - CHRONIC KIDNEY DISEASE, STAGE 5 Status: Chronic (7) Chronic diastolic heart failure Code(s): I50.32 - CHRONIC DIASTOLIC (CONGESTIVE) HEART FAILURE Status: Chronic (8) Coronary artery disease Code(s): I25.10 - ATHSCL HEART DISEASE OF [place] CORONARY ARTERY W/O ANG PCTRS Status: Chronic Qualifiers: Coronary Disease-Associated Artery/Lesion type: [place] artery [place] vs. transplanted heart: [place] heart Associated angina: without angina Qualified Code(s): I25.10 - Atherosclerotic heart disease of [place] coronary artery without angina pectoris Comment: Medical mgmt (9) DM type 2 (diabetes mellitus, type 2) Status: Chronic Qualifiers: Diabetes mellitus fpc insulin use: without terminal gauger supervisor use Diabetes mellitus complication status: with kidney complications Diabetes mellitus complication detail: with chronic kidney disease Chronic kidney disease stage : stage 5, not on chronic dialysis Qualified Code(s): E11.22 - Type 2 diabetes mellitus with diabetic chronic kidney disease; N18.5 - Chronic kidney disease, stage 5 Comment: diet controlled (10) Hyperlipidemia Code(s): E78.5 - HYPERLIPIDEMIA, UNSPECIFIED Status: Chronic Qualifiers: Hyperlipidemia type: unspecified Qualified Code(s): E78.5 - Hyperlipidemia , unspecified (11) Hypertension Code(s): I10 - ESSENTIAL (PRIMARY) HYPERTENSION Status: Chronic Qualifiers: Hypertension type: essential hypertension Qualified Code(s): I10 - Essential (primary) hypertension (12) Lupus (systemic lupus erythematosus) Code(s): M32.9 - SYSTEMIC LUPUS ERYTHEMATOSUS, UNSPECIFIED Status: Chronic Qualifiers: Systemic lupus erythematosus organ involvement: glomerular disease (13) Metabolic acidosis Code(s): E87.2 - ACIDOSIS Status: Chronic Comment: Metabolic acidosis secondary to INDIRA/CKD, Sodium Bicarbonate 325mg BID (14) Obesity Code(s): E66.9 - OBESITY, UNSPECIFIED Status: Chronic - Plan sod bicarb, phoslo, raul with vit D, oral iron -: dc pt home -: to f/u with nephr in 2 weeks and pcp in 1 week. -: To f/u with ophthal for right eye dense cataract * . Review of Systems - Medications/Allergies Allergies/Adverse Reactions: Allergies Allergy/AdvReac Type Severity Reaction Status Date / Time dextromethorphan HBr Allergy Verified 05/17/18 04:19 [From NyQuil] doxylamine succinate Allergy Verified 05/17/18 04:19 [From NyQuil] hydralazine Allergy Anaphylaxis Verified 05/17/18 04:19 pseudoephedrine HCl Allergy Verified 05/17/18 04:19 [From NyQuil] Medications: Current Medications Acetaminophen (Tylenol) 650 mg PO Q4H PRN PRN Reason: Headache/Fever or Pain Aspirin (Ecotrin) 81 mg PO DAILY [facility] Last Admin: 05/18/18 09:28 Dose: 81 mg Atorvastatin Calcium (Lipitor) 20 mg PO HS [facility] Last Admin: 05/17/18 20:50 Dose: 20 mg Calcium Acetate (Phoslo) 667 mg PO TID-[facility] Last Admin: 05/18/18 09:32 Dose: 667 mg Calcium Acetate (Phoslo) 667 mg PO PRN PRN PRN Reason: WITH EVERY SNACK Calcium Carbonate (Tums) 1,000 mg PO BID [facility] Last Admin: 05/18/18 09:27 Dose: 1,000 mg Carvedilol (Coreg) 25 mg PO BID-[facility] Last Admin: 05/18/18 09:29 Dose: 25 mg Cholecalciferol (Vitamin D3) 2,000 units PO DAILY [facility] Last Admin: 05/18/18 09:28 Dose: 2,000 units Clonidine (Catapres) 0.3 mg PO [facility] Last Admin: 05/17/18 20:50 Dose: 0.3 mg Furosemide (Lasix) 40 mg PO DAILY [facility] Last Admin: 05/18/18 09:31 Dose: 40 mg Heparin Sodium (Porcine) (Heparin) 5,000 units SC TID [facility] Last Admin: 05/18/18 09:32 Dose: 5,000 units Nifedipine (Procardia Xl) 30 mg PO DAILY [facility] Last Admin: 05/18/18 09:29 Dose: 30 mg Ondansetron HCl (Zofran) 4 mg IVP Q6H PRN PRN Reason: Nausea/Vomiting Sodium Bicarbonate (Bicarbonate, Sodium) 650 mg PO BID [facility]
--- NOTE | 2018-05-18 15:10 | DIS ---
DATE OF ADMISSION: 05/17/2018 DATE OF DISCHARGE: 05/18/2018 DISCHARGE DISPOSITION: To home. PRIMARY DISCHARGE DIAGNOSES: Chronic kidney disease stage 5-6, metabolic acidosis, hypocalcemia with facial tingling and left-sided numbness resolved, hyperparathyroidism secondary to renal disease, chronic anemia due to kidney disease, chronic diastolic dysfunction, coronary artery disease, diabetes mellitus type 2, dyslipidemia, hypertension, history of lupus with lupus nephritis, obesity. PROCEDURES DONE DURING HOSPITALIZATION: H and H 8 and 24, platelet count 190, MCV is 98, BUN 63, creatinine 3.8, serum bicarbonate 15. DISCHARGE MEDICATIONS: Aspirin 81 mg p.o. daily, Coreg 25 mg twice daily, clonidine 0.3 mg p.o. at bedtime, Lasix 40 mg daily, Procardia-XL 30 mg p.o. daily, simvastatin 40 mg p.o. at bedtime, PhosLo 667 mg p.o. 3 times daily, calcium carbonate 1000 mg p.o. twice daily, vitamin D3 of 2000 units p.o. daily , sodium bicarbonate 650 mg p.o. twice daily. ALLERGIES: DEXTROMETHORPHAN, DOXYLAMINE, HYDRALAZINE, PSEUDOEPHEDRINE. INPATIENT CONSULTS: Dr. Aleks Montilla for Nephrology. BRIEF COURSE DURING HOSPITALIZATION: Patient initially came to ER with complaints of facial tingling and numbness and left upper extremity tingling and numbness as well. She has known history of chronic kidney disease with stage 5-6. She had severe hypocalcemia as well. Likely this is due to her chronic kidney disease with patient not taking any supplements or phosphorus lowering agents. She was evaluated by Dr. Aleks Montilla as well. Her electrolytes were stabilized. Her tingling, numbness has completely resolved and so is her telemetry EKG changes suggestive of hypocalcemia as well. She has been counseled with regards to taking PhosLo, calcium carbonate, and sodium bicarbonate. Patient also has chronic anemia with renal disease, likely might have a component of chronic anemia with history of lupus as well. She is hemodynamically stable, ambulating and eating well. She has been cleared by Dr. Aleks Montilla for discharge. The patient needs follow up with Dr. Montilla in 2-3 weeks and primary care physician in 1 week. Please note, patient also has right eye dense cataracts with almost complete blindness and she has been counseled with regards to setting up an appointment with a case supervisor. She just received her Medicare insurance and likely she will set up appointment with an case supervisor of her choice. Please see a face to face documentation on [facility] for the day of discharge. REJI
[2018-05-18] MEDS ORDERED: Sodium Bicarbonate Tab 325 MG TAB PO SCH (21:00)
== END 2018-05-18 15:03 | disposition home or self-care (01) | DRG 640 ==
LOC: ERS 02:10 → 2NO 02:54 → ERS 03:38
PROVIDERS: ADMIT Hospitalist; ATTEND Hospitalist
DX: E83.51 Hypocalcemia (principal); N18.6 End stage renal disease; N17.9 Acute kidney failure, unspecified; I50.32 Chronic diastolic (congestive) heart failure; I13.0 Hypertensive heart and chronic kidney disease with heart failure and stage 1 through stage 4 chronic kidney disease, or unspecified chronic kidney disease; E87.2 Acidosis; Z68.41 Body mass index [BMI] 40.0-44.9, adult; H54.61 Unqualified visual loss, right eye, normal vision left eye; H26.9 Unspecified cataract; D63.1 Anemia in chronic kidney disease; R20.0 Anesthesia of skin; E83.39 Other disorders of phosphorus metabolism; E83.42 Hypomagnesemia; Z87.440 Personal history of urinary (tract) infections; F41.9 Anxiety disorder, unspecified; F32.9 Major depressive disorder, single episode, unspecified; I25.10 Atherosclerotic heart disease of native coronary artery without angina pectoris; E11.22 Type 2 diabetes mellitus with diabetic chronic kidney disease; E78.5 Hyperlipidemia, unspecified; M32.9 Systemic lupus erythematosus, unspecified; E66.9 Obesity, unspecified; R25.2 Cramp and spasm; Z99.2 Dependence on renal dialysis; Z86.73 Personal history of transient ischemic attack (TIA), and cerebral infarction without residual deficits; Z79.82 Long term (current) use of aspirin; E11.65 Type 2 diabetes mellitus with hyperglycemia
CPT/HCPCS: 36415; 76536; 80048; 85025; 99285; J1644; J3475; J7050

== ENCOUNTER 2018-05-21 22:43 | Observation (INO) | payer MEDICARE, BC ==
[2018-05-21 23:31] LABS: #Eosinphils 0.1 thou/uL (0.0-0.7); #Lymphocytes 1.7 thou/uL (1.20-3.40); #Monocytes 0.6 thou/uL (0.11-0.59); #Neutrophils 5.4 thou/uL (1.40-6.50); %Basophils 0.5 % (0.0-1.0); %Lymphocytes 21.2 % (21.0-51.0); %Monocytes 8.1 % (0.0-10.0); %Neutrophils 69.2 % (42.0-75.0); Hemoglobin 8.9 g/dL (12.0-16.0); Mean Corpuscular HGB CONC 32.1 g/dL (32.0-36.0); Mean Corpuscular Volume 96.5 fL (78.0-98.0); Mean Platelet Volume 7.3 fL (7.4-10.4); Platelet Count 232 thou/uL (130-400); RBC Distribution Width 12.1 % (11.5-14.5); Red Blood Cell (RBC) Count 2.87 mill/uL (4.20-5.40); White Blood Cell (WBC) Count 7.8 thou/uL (4.8-10.8)
[2018-05-21 23:44] LABS: CO2 Tension (PvCO2) 31.6 mmHg (41.0-51.0); Calcium, Ionized 0.93 mmol/L (1.12-1.32); Hemoglobin - Calc 9.3 g/dL (12.0-18.0); O2 Tension (PvO2) 69.3 mmHg (35.0-45.0); T. Carbon Dioxide 17.9 mmol/L (1.0-85.0); pH (Venous) 7.338 (7.35-7.45); vO2 Saturation-calc 92.8 % (94-98)
[2018-05-21 23:53] LABS: ALT (SGPT) 15 U/L (8-55); AST (SGOT) 20 U/L (5-34); Albumin 3.7 g/dL (3.5-5.0); Alkaline Phosphatase 129 U/L (40-150); Anion Gap 16 mmol/L (10-20); BUN (Urea Nitrogen) 81 mg/dL (9.8-20.1); Bilirubin, Total 0.4 mg/dL (0.2-1.2); Calc. Creatinine Clearance 0 mL/min (70-130); Calcium 7.6 mg/dL (7.8-10.44); Carbon Dioxide 18 mmol/L (22-29); Chloride 110 mmol/L (98-107); Estimated GFR-MDRD 11; Globulin 4.6 g/dL (2.4-3.5); Glucose 72 mg/dL (70-105); Magnesium 1.2 mg/dL (1.6-2.6); Phosphorus 5.9 mg/dL (2.3-4.7); Potassium 5.1 mmol/L (3.5-5.1); Protein, Total 8.3 g/dL (6.0-8.3); Sodium 139 mmol/L (136-145)
[2018-05-22] MEDS ORDERED: Ondansetron HCl/PF 4 MG/2 ML Vial IVP PRN (00:58)
[2018-05-22] MEDS ORDERED: Ondansetron ODT 4 MG TAB SL PRN (00:58)
[2018-05-22] MEDS ORDERED: Acetaminophen 325 MG TAB PO PRN (00:58)
[2018-05-22] MEDS ORDERED: Bisacodyl 5 MG TAB PO PRN (02:33)
[2018-05-22] MEDS ORDERED: Magnesium 2 GM/NS 0.9% 50 ML 2 GM in Premix Bag 1 BAG IVPB SCH (03:00)
[2018-05-22] MEDS ORDERED: Calcium Gluc 4.6 MEQ/10 ML (100 MG/ML) SLOW IVP SCH (03:00)
--- NOTE | 2018-05-22 03:53 | HP ---
CHIEF COMPLAINT: Numbness and tingling sensation of the upper extremity and lower extremities bilate rally. HISTORY OF PRESENT ILLNESS: She is a 57-year-old female with past medical history of hyperlipidemia, TIAs in the past, lupus, hypertension, and end-stage renal failure presenting with bilateral upper e xtremity and lower extremity numbness and tingling sensation. Patient stated that she was recently i n the hospital for the same symptoms and during that time, patient was found to be hypocalcemic. Bonita johnson stated that she was treated and she was sent home and now she is feeling the same symptoms again . Symptoms started at the upper extremity around the hands and she also had some paresthesias around the cheeks and also at the lower extremities. [facility] and patient w as found to be hyperkalemic. Therefore, patient was given Kayexalate at [place] and patient's repea t potassium is currently 5.1, which is normal. Currently, patient states that her symptoms of numbne ss and tingling sensation of the upper extremity and lower extremity has resolved somewhat and she is feeling much better. Patient denies any pain, denies any fever, nausea, vomiting at this time. REVIEW OF SYSTEMS: Positive for vomiting x1 at [facility]. Positive for numbness and tingli ng sensation of the upper and lower extremities, otherwise as documented in the HPI. All other syste ms were reviewed and are negative. PAST MEDICAL HISTORY: Refer to HPI. PAST SURGICAL HISTORY: Bilateral heel spur removal in 1995, surgical history of cholecystectomy in , tubal ligation, status post stent, fistula of left upper arm, Lasik surgery. FAMILY HISTORY: Reviewed and noncontributory to this visit. PSYCHIATRIC HISTORY: Patient has anxiety and depression. SOCIAL HISTORY: Patient denies alcohol use. Patient denies drug use and patient denies any smoking history. KNOWN ALLERGIES: Patient is allergic to DEXTROMETHORPHAN, HYDRALAZINE, NYQUIL. CURRENT MEDICATIONS: Patient is on aspirin 81 mg, carvedilol 25 mg, simvastatin 40 mg, nifedipine 30 mg, clonidine 0.3 mg, Lasix 40 mg, sodium bicarbonate 325 mg, calcium acetate 667 mg. PHYSICAL EXAMINATION: VITAL SIGNS: In the ED, patient's blood pressure is 168/82, pulse is 90, respiratory rate of 16, tem perature of 97.8, oxygen saturation of 95 on room air. GENERAL APPEARANCE: Patient is eating sandwich sitting in bed, does not appear to be in any acute di stress, speaking in full sentences. HEENT: Normocephalic, atraumatic. Pupils are equally round and reactive to light. Patient do have cataract noted in the right eye. Mucous membranes are moist. No scleral icterus noted. NECK: Trachea is midline. No JVD. RESPIRATORY: Clear to auscultation bilaterally at the anterior lung ortega and posterior lung ortega . No wheezing, no rales, no rhonchi is appreciated. CARDIOVASCULAR: Positive S1, S2, regular rate and rhythm. No murmurs, no gallops or rubs appreciate d. ABDOMEN: Soft, nontender, nondistended, obese abdomen, positive bowel sounds. No distention, no mas ses, no rigidity. EXTREMITIES: Upper extremity, patient has 5/5 upper extremity strength. Left AV fistula noted with palpable thrill. Good pulses. Lower extremity patient has 5/5 lower extremity strength, good pulses in the lower extremity bilaterally. NEUROLOGIC: Cranial nerves II-XII grossly intact. No neurologic deficits noted. SKIN: Warm, dry, and intact. PSYCHIATRIC: Patient is alert, oriented x3, not in acute distress. EKG: Normal EKG. LABORATORY DATA: White count is 7.8, hemoglobin is 8.9, hematocrit is 27.7, MCV is 96.5, RDW 12.1, p latelet count is 232. ABG: pH is 7.3, pCO2 is 31, pO2 of 69.3. Sodium 143, potassium is 5.0, chlor barry 113, anion gap is 16, carbon dioxide is 18, BUN is 81, creatinine is 4.17, GFR is 11, calcium is 7.6, glucose is 72, phosphorus 5.9, magnesium is 1.2. Chest x-ray shows cardiomegaly, otherwise unremarkable. ASSESSMENT AND PLAN: This is a 57-year-old female being admitted for: 1. Hypocalcemia. Patient's corrected calcium is 7.8, which is below the normal. At this point, we will replete patient's calcium with calcium gluconate and we will follow up on morning labs. 2. Hypomagnesemia. Patient's magnesium is 1.2, which could be attributing to patient's numbness and tingling sensation in the upper and lower extremities. At this point, we are going to replete patie nt's hypomagnesemia with magnesium. 3. Hyperkalemia. Patient does not have any EKG changes and patient currently repeat potassium is 5, so at this point, we will just follow up morning potassium. 4. End-stage renal disease. We have consulted Nephrology. Patient has AV fistula already in place. We will continue to manage the patient supportively. 5. Azotemia. Patient did have a BUN of 80 and creatinine of 4. At this point, patient does not hav e any symptoms of uremia. We will continue to monitor the patient at this time. 6. History of hyperlipidemia. We will continue patient on home medication. 7. Hypertension. We will continue patient on home medication. 8. Deep venous thrombosis, gastrointestinal prophylaxis. We will do heparin b.i.d. We will continu e the patient on a diet.
[2018-05-22 05:28] LABS: ALT (SGPT) 12 U/L (8-55); AST (SGOT) 18 U/L (5-34); Albumin 3.4 g/dL (3.5-5.0); Alkaline Phosphatase 119 U/L (40-150); Anion Gap 15 mmol/L (10-20); BUN (Urea Nitrogen) 80 mg/dL (9.8-20.1); Bilirubin, Total 0.4 mg/dL (0.2-1.2); Calc. Creatinine Clearance 23 mL/min (70-130); Calcium 7.6 mg/dL (7.8-10.44); Carbon Dioxide 17 mmol/L (22-29); Chloride 110 mmol/L (98-107); Estimated GFR-MDRD 11; Globulin 4.1 g/dL (2.4-3.5); Glucose 157 mg/dL (70-105); Potassium 5.2 mmol/L (3.5-5.1); Protein, Total 7.5 g/dL (6.0-8.3); Sodium 137 mmol/L (136-145)
[2018-05-22] MEDS: Calcium Acetate 667 MG CAP PO SCH ×3 (08:51→16:32)
[2018-05-22] MEDS: NIFEdipine XL 30 MG TAB PO SCH (08:51)
[2018-05-22] MEDS: Carvedilol 25 MG TAB PO SCH ×2 (08:52→20:49)
[2018-05-22] MEDS: Aspirin 81 mg Enteric Coated Tablet PO SCH (08:52)
[2018-05-22] MEDS: Heparin 5,000 UNITS/ML VIAL SC SCH ×2 (08:52→20:48)
[2018-05-22] MEDS: Calcium Carbonate 500 MG ChewTAB PO SCH ×2 (08:52→20:49)
[2018-05-22] MEDS: Furosemide 40 MG TAB PO SCH (08:52)
[2018-05-22] MEDS: Sodium Bicarbonate Tab 325 MG TAB PO SCH ×2 (08:57→20:49)
--- NOTE | 2018-05-22 16:42 | PDOC.PN ---
- Subjective Encounter Start Date: 05/22/18 Encounter Start Time: 16:35 Subjective: f/u for paresthesias and electrolyte abnormalities in context of CKD V -: Overall feeling better. No CP, SOB or edema. - Objective Resuscitation Status: Resuscitation Status FULL:Full Resuscitation MAR Reviewed: Yes Vital Signs & Weight: Vital Signs (12 hours) Temp Pulse Resp BP Pulse Ox 05/22/18 15:22 98.6 F 69 16 138/63 93 L 05/22/18 12:34 97.8 F 73 16 151/69 H 99 05/22/18 08:51 71 05/22/18 08:00 97.4 F L 71 20 143/67 H 95 Weight Weight 213 lb 14.4 oz I&O: 05/21/18 05/22/18 05/23/18 06:59 06:59 06:59 Intake Total 50 800 Output Total 650 Balance 50 150 Result Diagrams: 05/21/18 23:25 05/22/18 04:39 Additional Labs: Laboratory Tests 06/21/16 06/22/16 06/23/16 04:42 05:58 05:04 Hgb 7.5 L 7.8 L POC Venous Potassium Potassium Carbon Dioxide BUN Creatinine 4.21 H Phosphorus Magnesium 06/23/16 06/24/16 06/24/16 05:04 04:47 04:47 Hgb 7.6 L 7.8 L POC Venous Potassium Potassium Carbon Dioxide BUN Creatinine 4.27 H Phosphorus Magnesium 06/24/16 06/25/16 06/25/16 09:07 05:19 05:19 Hgb 8.0 L POC Venous Potassium Potassium 4.7 5.5 H Carbon Dioxide BUN Creatinine 4.34 H Phosphorus Magnesium 06/25/16 06/26/16 06/26/16 12:48 06:30 06:30 Hgb 7.8 L POC Venous Potassium Potassium 5.5 H 5.3 H Carbon Dioxide BUN Creatinine 4.90 H Phosphorus Magnesium 05/16/18 05/16/18 05/18/18 23:40 23:40 04:47 Hgb 7.9 L POC Venous Potassium Potassium Carbon Dioxide BUN Creatinine Phosphorus 5.6 H Magnesium 1.4 L 05/21/18 05/21/18 05/21/18 20:14 20:14 23:25 Hgb 9.1 L POC Venous Potassium Potassium 5.1 Carbon Dioxide 18 L BUN 81 H Creatinine 4.17 H Phosphorus 6.7 H Magnesium 1.6 1.2 L 05/21/18 23:38 Hgb POC Venous Potassium 5.0 H Potassium Carbon Dioxide BUN Creatinine Phosphorus Magnesium Radiology Reviewed by me: Yes (PCXR - no acute process) EKG Reviewed by me: Yes (Tele - SR) Phys Exam - Physical Examination Constitutional: NAD HEENT: PERRLA, sclera anicteric, oral pharynx no lesions Neck: no nodes, no JVD, supple, full ROM Respiratory: no wheezing, no rales, no rhonchi, clear to auscultation bilateral S1, S2 Cardiovascular: RRR, no significant murmur, no rub, gallop Gastrointestinal: soft, non-tender, no distention, positive bowel sounds Musculoskeletal: no edema, pulses present Neurological: non-focal, normal sensation, moves all 4 limbs Psychiatric: normal affect, A&O x 3 Skin: no rash, normal turgor, cap refill <2 seconds Dx/Plan (1) Paresthesia and pain of both upper extremities Code(s): R20.2 - PARESTHESIA OF SKIN; M79.601 - PAIN IN RIGHT ARM; M79.602 - PAIN IN LEFT ARM Status: Acute Comment: Likely multifactorial given electrolyte abnormalities, improved (2) CKD (chronic kidney disease) stage 5, GFR less than 15 ml/min Code(s): N18.5 - CHRONIC KIDNEY DISEASE, STAGE 5 Status: Chronic Comment: Likely will need to initiate HD (3) DM type 2 (diabetes mellitus, type 2) Status: Chronic Qualifiers: Diabetes mellitus snf insulin use: without exterminator use Diabetes mellitus complication status: with kidney complications Diabetes mellitus complication detail: with chronic kidney disease Chronic kidney disease stage : stage 5, not on chronic dialysis Qualified Code(s): E11.22 - Type 2 diabetes mellitus with diabetic chronic kidney disease; N18.5 - Chronic kidney disease, stage 5 Comment: diet controlled (4) Hyperkalemia Code(s): E87.5 - HYPERKALEMIA Status: Acute (5) Hypomagnesemia Code(s): E83.42 - HYPOMAGNESEMIA Status: Chronic - Plan Stable overall -: Nephrology consult pending -: Start Mag Oxide 400mg BID -: OOB/ambulate -: AM lab: BMP, PO3, Mg++ * .
[2018-05-22] MEDS: Magnesium Oxide 400 MG TAB PO SCH (20:49)
[2018-05-22] MEDS ORDERED: Atorvastatin Calcium 20 MG TAB PO SCH (21:00)
[2018-05-22] MEDS ORDERED: cloNIDine 0.3 MG TAB PO SCH (21:00)
[2018-05-22] MEDS ORDERED: Simvastatin 40 MG TAB PO SCH (21:00)
[2018-05-22] MEDS: Acetaminophen 325 MG TAB PO PRN (22:25)
[2018-05-23 04:36] LABS: Anion Gap 16 mmol/L (10-20); BUN (Urea Nitrogen) 81 mg/dL (9.8-20.1); Calc. Creatinine Clearance 22 mL/min (70-130); Calcium 7.9 mg/dL (7.8-10.44); Carbon Dioxide 17 mmol/L (22-29); Chloride 109 mmol/L (98-107); Estimated GFR-MDRD 11; Glucose 92 mg/dL (70-105); Phosphorus 6.4 mg/dL (2.3-4.7); Potassium 5.2 mmol/L (3.5-5.1); Sodium 137 mmol/L (136-145)
[2018-05-23 08:02] VITALS: BP 158/67; TEMP 97.8
[2018-05-23] MEDS: Calcium Carbonate 500 MG ChewTAB PO SCH (08:27)
[2018-05-23] MEDS: Acetaminophen 325 MG TAB PO PRN (08:27)
[2018-05-23] MEDS: Calcium Acetate 667 MG CAP PO SCH (08:28)
[2018-05-23] MEDS: Magnesium Oxide 400 MG TAB PO SCH (08:28)
[2018-05-23] MEDS: Carvedilol 25 MG TAB PO SCH (08:28)
[2018-05-23] MEDS: Sodium Bicarbonate Tab 325 MG TAB PO SCH (08:28)
[2018-05-23] MEDS: NIFEdipine XL 30 MG TAB PO SCH (08:28)
[2018-05-23] MEDS: Heparin 5,000 UNITS/ML VIAL SC SCH (08:29)
[2018-05-23] MEDS: Furosemide 40 MG TAB PO SCH (08:29)
[2018-05-23] MEDS: Aspirin 81 mg Enteric Coated Tablet PO SCH (08:29)
--- NOTE | 2018-05-23 10:35 | DIS ---
DATE OF ADMISSION: 05/22/2018 DATE OF DISCHARGE: 05/23/2018 DISCHARGE DIAGNOSES: 1. Paresthesias of bilateral upper extremities, improved. 2. Chronic kidney disease stage 5. 3. Diabetes mellitus type 2, stable. 4. Hyperkalemia, mild. 5. Hypomagnesemia, improved. 6. Hypocalcemia, chronic. CONSULTATIONS: Dr. Aleks Montilla with Nephrology Service. PERTINENT LABORATORY AND X-RAY FINDINGS: Potassium ranged between 5.1-5.2, creatinine ranged between 4.17-4.34. Estimated GFR 11, calcium ranged between 7.6-7.9, phosphorus ranged between 5.9-6.4 and magnesium ranged between 1.2-2.0. Portable chest x-ray dated 05/21/2018 showed cardiomegaly without acute process. HOSPITAL COURSE: The patient was observed on the telemetry unit after initially presenting with pare sthesias with associated electrolyte abnormalities in the context of chronic kidney disease stage 5. The patient was given calcium and magnesium supplementation as well as Kayexalate. Serial monitorin g of potassium showed overall stable values ranging between 5.1-5.2. The patient was evaluated by [facility] Nephrology Service with recommendations to continue PhosLo t.i.d. with meals and snacks. The patie nt also received magnesium supplementation with overall correction and magnesium level prior to disch arge. Telemetry monitoring showed sinus mechanism without evidence of acute arrhythmia or dysrhythmi a, and patient remained clinically stable during the hospital course. PHYSICAL EXAMINATION: I have examined the patient at the time of discharge and discussed followup i nstructions. The patient verbalizes understanding and agreement and ready for discharge on 8. DISCHARGE MEDICATIONS: 1. Enteric coated aspirin 81 mg 1 tab p.o. daily. 2. Coreg 25 mg p.o. b.i.d. 3. Clonidine 0.3 mg p.o. at bedtime. 4. Lasix 40 mg 1 tab p.o. daily. 5. Nifedipine ER 30 mg p.o. daily. 6. Simvastatin 40 mg p.o. at bedtime. 7. PhosLo 667 mg p.o. t.i.d. 8. Calcium carbonate 1000 mg p.o. b.i.d. 9. Vitamin D3 2000 units p.o. daily. 10. Magnesium oxide 400 mg p.o. daily. 11. Sodium bicarbonate 650 mg p.o. b.i.d. FOLLOWUP: The patient to follow up with her primary care provider at [facility] in [place] within 7 days of discharge. The patient will follow up with Dr. Aleks Montilla with Nephrology Service and to call his office for appointment time and date. CONDITION ON DISCHARGE: Stable. ACTIVITY: Ad len. DIET: ADA and renal. CODE STATUS: Full. DISPOSITION: Home 05/23/2018.
== END 2018-05-23 11:13 | disposition home or self-care (01) ==
LOC: ERS 22:43 → 2SW 05-22 00:26
PROVIDERS: ADMIT Internal Medicine; ATTEND Internal Medicine
DX: E83.51 Hypocalcemia (principal); E83.42 Hypomagnesemia; E87.5 Hyperkalemia; R20.2 Paresthesia of skin; M79.601 Pain in right arm; M79.602 Pain in left arm; E78.5 Hyperlipidemia, unspecified; I12.0 Hypertensive chronic kidney disease with stage 5 chronic kidney disease or end stage renal disease; E11.22 Type 2 diabetes mellitus with diabetic chronic kidney disease; N18.6 End stage renal disease; M32.9 Systemic lupus erythematosus, unspecified; Z86.73 Personal history of transient ischemic attack (TIA), and cerebral infarction without residual deficits; Z79.82 Long term (current) use of aspirin; Z79.899 Other long term (current) drug therapy; Z88.8 Allergy status to other drugs, medicaments and biological substances
CPT/HCPCS: 80048; 80053 ×2; 82330; 82435; 82803; 83735 ×2; 84100 ×2; 84132; 84295; 85014; 85025; 93005; 96365; 96366; 96375; 99285; G0378; 36415; A4216; J1644; J3475; J7050; Q0162

== ENCOUNTER 2018-07-02 21:23 | Inpatient (IN) | payer MEDICARE, BC ==
[2018-07-02 22:57] LABS: Base Excess-Venous -10.2 mmol/L (0 (+/- 2.5)); Bicarbonate (HCO3v) 14.3 mmol/L (1.0-85.0); CO2 Tension (PvCO2) 26.4 mmHg (41.0-51.0); Calcium, Ionized 1.07 mmol/L (1.12-1.32); Hemoglobin - Calc 8.7 g/dL (12.0-18.0); O2 Tension (PvO2) 88.8 mmHg (35.0-45.0); Potassium 6.1 mmol/L (3.4-4.7); T. Carbon Dioxide 15.2 mmol/L (1.0-85.0); pH (Venous) 7.343 (7.35-7.45); vO2 Saturation-calc 96.5 % (94-98)
[2018-07-02] MEDS ORDERED: HumaLOG 300 UNITS/3 ML VIAL SC PRN ×2 (23:04)
[2018-07-02] MEDS ORDERED: Senokot S 8.6-50 MG TAB PO PRN (23:04)
[2018-07-02] MEDS ORDERED: Ondansetron PF 4 MG/2 ML Vial IVP PRN (23:04)
[2018-07-02] MEDS ORDERED: Bisacodyl 5 MG TAB PO PRN (23:04)
[2018-07-02] MEDS ORDERED: Dextrose 5% in Water 1,000 ML IV PRN (23:04)
[2018-07-02] MEDS ORDERED: Dextrose 50% Abboject 50 ML SYRINGE SLOW IVP PRN (23:04)
[2018-07-02 23:09] LABS: Troponin I Less than 0.010 ng/mL (< 0.028)
[2018-07-03 00:48] VITALS: BMI 39.4
[2018-07-03] MEDS ORDERED: cloNIDine 0.3 MG TAB PO SCH (01:15)
[2018-07-03 01:25] LABS: #Basophils 0.1 thou/uL (0.0-0.2); #Eosinphils 0.1 thou/uL (0.0-0.7); #Lymphocytes 1.6 thou/uL (1.20-3.40); #Monocytes 0.4 thou/uL (0.11-0.59); #Neutrophils 6.1 thou/uL (1.40-6.50); %Basophils 0.6 % (0.0-1.0); %Eosinophils 0.9 % (0.0-10.0); %Lymphocytes 19.5 % (21.0-51.0); %Monocytes 4.9 % (0.0-10.0); %Neutrophils 74.1 % (42.0-75.0); Hemoglobin 9.2 g/dL (12.0-16.0); Mean Corpuscular HGB CONC 32.1 g/dL (32.0-36.0); Mean Corpuscular Hemoglobin 31.6 pg (27.0-31.0); Mean Corpuscular Volume 98.2 fL (78.0-98.0); Mean Platelet Volume 7.8 fL (7.4-10.4); Platelet Count 199 thou/uL (130-400); RBC Distribution Width 11.9 % (11.5-14.5); White Blood Cell (WBC) Count 8.2 thou/uL (4.8-10.8)
[2018-07-03 01:44] LABS: Troponin I Less than 0.010 ng/mL (< 0.028)
[2018-07-03 01:48] LABS: Anion Gap 18 mmol/L (10-20); BUN (Urea Nitrogen) 66 mg/dL (9.8-20.1); Calc. Creatinine Clearance 24 mL/min (70-130); Calcium 8.7 mg/dL (7.8-10.44); Carbon Dioxide 11 mmol/L (22-29); Chloride 115 mmol/L (98-107); Estimated GFR-MDRD 11; Glucose 96 mg/dL (70-105); Magnesium 2.2 mg/dL (1.6-2.6); Phosphorus 5.1 mg/dL (2.3-4.7); Sodium 137 mmol/L (136-145); Uric Acid 7.9 mg/dL (2.6-6.0)
[2018-07-03 04:41] LABS: Creatinine, Urine 38.49 mg/dL (47-110); Potassium, Urine 14.9 mmol/L
[2018-07-03 06:10] LABS: Troponin I Less than 0.010 ng/mL (< 0.028)
--- NOTE | 2018-07-03 06:15 | HP ---
CHIEF COMPLAINT: Chest discomfort. HISTORY OF PRESENT ILLNESS: This is a 57-year-old female with past medical history of hyperlipidemia , TIAs in the past, lupus, hypertension, and end-stage renal failure, who presented from [place] for c hest pain. Per the patient, she had a chest pain, so she went to [place] to be evaluated. Patient st ated that her chest pain was substernal, dull in nature, moderate, and did not radiate to her back. Patient stated that this event occurred about 1800 on the night of admission, patient had associated symptoms of nausea, shortness of breath, vomiting x3. The patient states that she has never had this chest pain before, but states that in the past, she had a stent placed. On further evaluation at [facility], patient was found to have pulmonary infiltrates, potassium that was elevated at 5.9, CO2 that w as decreased at 13 and patient was transferred to our ED to be evaluated due to her kidney failure an d abnormal labs. The patient denies any headache, dizziness, fever, palpitations, or abdominal pain. REVIEW OF SYSTEMS: Positive for vomiting, nausea, shortness of breath, chest discomfort, otherwise a s documented in the HPI. All other systems were reviewed and are negative. PAST MEDICAL HISTORY: The patient has past medical history of lupus; diabetes mellitus type 2; hyper tension; hyperlipidemia; CVAs in the past; renal insufficiency; coronary artery disease, status post stents. FAMILY HISTORY: Reviewed and noncontributory. PAST SURGICAL HISTORY: Bilateral heel spur removal, stent placement, LASIK surgery, cholecystectomy, dialysis shunt, tubal ligation. PSYCHIATRIC HISTORY: Anxiety, depression. SOCIAL HISTORY: The patient denies alcohol use. The patient denies any drug use. The patient denie s any smoking history. FAMILY HISTORY: Reviewed and noncontributory to this visit. ALLERGIES: Patient is allergic to DEXTROMETHORPHAN, HYDRALAZINE, and NYQUIL. CURRENT MEDICATIONS: The patient takes aspirin 81 mg, carvedilol 25 mg, simvastatin 40 mg, nifedipin e 30 mg, clonidine 0.3 mg, Lasix 40 mg, sodium bicarbonate 325 mg, calcium acetate 667 mg. PHYSICAL EXAMINATION: VITAL SIGNS: Blood pressure 142/69, pulse of 75, respiratory rate of 20, temperature of 98.6, O2 sat uration of 95 on room air. GENERAL APPEARANCE: The patient is lying in bed on her phone, does not appear to be in any acute dis tress, speaking in full sentences. HEENT: Normocephalic, atraumatic. Pupils are round and reactive to light. The patient did have cat aracts that are noted in the eyes. Mucous membranes are moist. No scleral icterus noted. NECK: Trachea is midline. No JVD. RESPIRATORY: Clear to auscultation bilateral. No wheezing, no rales, no rhonchi appreciated. CARDIOVASCULAR: Positive S1, S2. Regular rate and rhythm. No murmurs, no gallops, no rubs apprecia jailene. ABDOMEN: Soft, nontender, nondistended, obese abdomen, positive bowel sounds. No distention, no mas s, no rigidity. EXTREMITIES: Upper extremity: Patient has 5/5 upper extremity strength. Left AV fistula noted with palpable thrill. Good pulses. Lower extremities: Patient has 5/5 lower extremity strength, good p ulses in the lower extremity bilaterally. NEUROLOGIC: Cranial nerves II through XII grossly intact. No neurologic deficits noted. SKIN: Warm, dry, and intact. PSYCHIATRIC: The patient is alert, oriented x3, not in acute distress. EKGs: 12-lead EKG shows sinus rhythm with a rate of 74. IMAGING: Chest x-ray shows pulmonary vascular prominence and interstitial edema. LABORATORY DATA: WBC is 8.2, hemoglobin is 9.2, hematocrit is 28.5, MCV of 98.2, RDW of 11.9, platel ets of 119,000. ABG: pH of 7.343, pCO2 of 26, pO2 is 88. Electrolytes: Sodium is 137, potassium i s 6.1, repeat is 7.0, chloride is 115, anion gap of 18, BUN 66, creatinine is 4.04, uric acid of 7.9, phosphorus of 5.1, magnesium of 2.2. ASSESSMENT AND PLAN: This is a 57-year-old female being admitted for: 1. Chest discomfort, rule out acute coronary syndrome. At this point, troponins x2 have been negati ve. We will continue patient on her current medications. We will monitor and manage the patient sup portively. We will continue to follow the patient closely. 2. Hyperkalemia. Patient's potassium at [place] was 6.1. The patient received calcium gluconate and Kayexalate and insulin. Repeat labs showed the patient's potassium is now 7.0. We are going to giv e 30 mg of Kayexalate and we will add lactulose 20 mg p.r.n. until patient has a bowel movement. We will continue to monitor the patient very closely. 3. Chronic kidney disease, stage 5, end-stage renal disease. We will continue patient on current ma nagement. It Business Systems Analyst has been consulted. We will follow up with their recommendation. 4. Hypertension. We will continue to monitor the patient's blood pressure. We will continue to man age the patient's blood pressure accordingly. 5. Hyperlipidemia, continue patient on current management. 6. Diabetes mellitus type 2. We will continue patient on current management. 7. Deep venous thrombosis and gastrointestinal prophylaxis.
--- NOTE | 2018-07-03 08:35 | ULT ---
RENAL ULTRASOUND: HISTORY: Renal failure. Hyperkalemia. DATE: 07/02/2018. FINDINGS: Multiple longitudinal and transverse images of the kidneys and bladder are obtained using a multihert z curvilinear transducer. Real-time and color flow images demonstrate both kidneys to be of normal c ontour, axis, and size. The right kidney measured 9.0 and the left kidney 10.4 cm from [id number]. No evidence of renal parenchymal lesion seen. Bilateral shadowing densities seen in both central kidneys compatible with bilateral nonobstructing r enal calculi. These calculi measure approximately 3-4 mm. Both ureteral jets visualized in the urinary bladder. IMPRESSION: 1. Small bilateral nonobstructing renal calculi without evidence of associated hydronephrosis. 2. No definite evidence of renal parenchymal mass is seen. POS: COLE
[2018-07-03 09:16] LABS: Anion Gap 14 mmol/L (10-20); BUN (Urea Nitrogen) 65 mg/dL (9.8-20.1); Calc. Creatinine Clearance 23 mL/min (70-130); Calcium 8.7 mg/dL (7.8-10.44); Carbon Dioxide 14 mmol/L (22-29); Chloride 116 mmol/L (98-107); Estimated GFR-MDRD 11; Glucose 101 mg/dL (70-105); Potassium 6.4 mmol/L (3.5-5.1); Sodium 138 mmol/L (136-145)
[2018-07-03] MEDS: Heparin 5,000 UNITS/ML VIAL SC SCH ×2 (09:38→20:49)
[2018-07-03] MEDS: Calcium Acetate 667 MG CAP PO SCH ×3 (09:38→17:01)
[2018-07-03] MEDS: NIFEdipine XL 30 MG TAB PO SCH (09:39)
[2018-07-03] MEDS: Sodium Bicarbonate Tab 325 MG TAB PO SCH ×2 (09:40→20:48)
[2018-07-03] MEDS: Carvedilol 25 MG TAB PO SCH ×2 (09:40→20:49)
[2018-07-03] MEDS: Aspirin 81 mg Enteric Coated Tablet PO SCH (09:40)
[2018-07-03] MEDS ORDERED: Insulin Regular 300 UNITS/3 ML VIAL IVP SCH (09:45)
[2018-07-03] MEDS ORDERED: Albuterol Sulfate 2.5 mg/3 ml Neb NEB SCH (09:45)
[2018-07-03] MEDS ORDERED: Dextrose 50% Abboject 50 ML SYRINGE SLOW IVP SCH (09:45)
[2018-07-03 12:44] LABS: Potassium 4.4 mmol/L (3.5-5.1)
--- NOTE | 2018-07-03 15:19 | PDOC.PN ---
- Subjective Encounter Start Date: 07/03/18 Encounter Start Time: 07:20 Pt seen for followup re: hyperkalemia. Denies chest pain, reports generalized weakness. - Objective Resuscitation Status: Resuscitation Status FULL:Full Resuscitation MAR Reviewed: Yes Vital Signs & Weight: Vital Signs (12 hours) Temp Pulse Resp BP Pulse Ox 07/03/18 10:22 83 16 99 07/03/18 09:39 78 07/03/18 09:00 98 07/03/18 08:30 98.5 F 78 18 175/70 H 97 07/03/18 04:00 97.8 F 68 18 176/74 H 95 Weight Weight 212 lb 11.2 oz I&O: 07/02/18 07/03/18 07/04/18 06:59 06:59 06:59 Intake Total 240 Output Total 400 Balance -160 Result Diagrams: 07/03/18 01:06 07/03/18 12:19 Additional Labs: Accuchecks 07/03/18 07/03/18 07/03/18 11:44 10:37 06:03 POC Glucose 138 H 156 H 97 EKG Reviewed by me: Yes Phys Exam - Physical Examination Obese HEENT: moist MMs, sclera anicteric, oral pharynx no lesions, 2+ tonsils Neck: no nodes, no JVD, supple, full ROM Respiratory: no wheezing, no rales, no rhonchi, clear to auscultation bilateral Cardiovascular: RRR, no rub S1, S2 Gastrointestinal: soft, non-tender, no distention, positive bowel sounds Neurological: moves all 4 limbs Psychiatric: normal affect, A&O x 3 Dx/Plan (1) Hyperkalemia Code(s): E87.5 - HYPERKALEMIA Status: Acute Comment: IV insulin, IV D50, oral kayexalate, ventolin nebs, recheck K level (2) Chest pain Code(s): R07.9 - CHEST PAIN, UNSPECIFIED Status: Acute Comment: Pt denies chest pain at this time. Await cardiology consult. (3) CKD (chronic kidney disease) stage 5, GFR less than 15 ml/min Code(s): N18.5 - CHRONIC KIDNEY DISEASE, STAGE 5 Status: Chronic Comment: stable (4) DM type 2 (diabetes mellitus, type 2) Status: Chronic Qualifiers: Diabetes mellitus custodial insulin use: without custodial use Diabetes mellitus complication status: with kidney complications Diabetes mellitus complication detail: with chronic kidney disease Chronic kidney disease stage : stage 5, not on chronic dialysis Qualified Code(s): E11.22 - Type 2 diabetes mellitus with diabetic chronic kidney disease; N18.5 - Chronic kidney disease, stage 5 Comment: reasonably controlled (5) Hyperlipidemia Code(s): E78.5 - HYPERLIPIDEMIA, UNSPECIFIED Status: Chronic Qualifiers: Hyperlipidemia type: unspecified Qualified Code(s): E78.5 - Hyperlipidemia , unspecified Comment: continue statin (6) Hypertension Code(s): I10 - ESSENTIAL (PRIMARY) HYPERTENSION Status: Chronic Qualifiers: Hypertension type: essential hypertension Qualified Code(s): I10 - Essential (primary) hypertension Comment: monitor vital signs, titrate antihypertensives as needed (7) Lupus (systemic lupus erythematosus) Code(s): M32.9 - SYSTEMIC LUPUS ERYTHEMATOSUS, UNSPECIFIED Status: Chronic Qualifiers: Systemic lupus erythematosus organ involvement: glomerular disease Comment: stable - Plan * . Review of Systems - Review of Systems Constitutional: weakness. negative: fever, chills, sweats, malaise Cardiovascular: chest pain. negative: palpitations, orthopnea, paroxysmal nocturnal dyspnea, edema, light headedness Gastrointestinal: negative: Nausea, Vomiting, Abdominal Pain, Diarrhea, Constipation, Melena, Hematochezia Genitourinary: negative: Dysuria, Frequency, Incontinence, Hematuria, Retention Skin: negative: Rash, Lesions, Arley, Bruising Neurological: Weakness. negative: Numbness, Incoordination, Change in Speech, Confusion, Seizures - Medications/Allergies Allergies/Adverse Reactions: Allergies Allergy/AdvReac Type Severity Reaction Status Date / Time dextromethorphan HBr Allergy Verified 07/03/18 01:09 [From NyQuil] doxylamine succinate Allergy Verified 07/03/18 01:09 [From NyQuil] hydralazine Allergy Anaphylaxis Verified 07/03/18 01:09 pseudoephedrine HCl Allergy Verified 07/03/18 01:09 [From NyQuil] Medications: Current Medications Acetaminophen (Tylenol) 650 mg PO Q4H PRN PRN Reason: Headache/Fever/Mild Pain (1-3) Aspirin (Ecotrin) 81 mg PO DAILY [facility] Last Admin: 07/03/18 09:40 Dose: 81 mg Bisacodyl (Dulcolax) 10 mg PO DAILYPRN PRN PRN Reason: Constipation Calcium Acetate (Phoslo) 667 mg PO TID-[facility] Last Admin: 07/03/18 13:47 Dose: 667 mg Carvedilol (Coreg) 25 mg PO BID [facility] Last Admin: 07/03/18 09:40 Dose: 25 mg Cholecalciferol (Vitamin D3) 2,000 units PO DAILY [facility] Last Admin: 07/03/18 09:38 Dose: 2,000 units Clonidine (Catapres) 0.3 mg PO [facility] Dextrose/Water (Dextrose 50%) 25 gm SLOW IVP PRN PRN PRN Reason: Hypoglycemia Glucagon (Glucagon) 1 mg IM PRN PRN PRN Reason: Hypoglycemia Heparin Sodium (Porcine) (Heparin) 5,000 units SC BID [facility] Last Admin: 07/03/18 09:38 Dose: 5,000 units Dextrose/Water (D5w) 1,000 mls @ 0 mls/hr IV .Q0M PRN PRN Reason: Hypoglycemia Insulin Human Lispro (Humalog) 0 units SC .MILD SLIDING SCALE PRN PRN Reason: Mild Correctional Scale Insulin Human Lispro (Humalog) 0 units SC .BEDTIME SLIDING SC PRN PRN Reason: Bedtime Correctional Scale Isosorbide Mononitrate (Imdur) 60 mg PO DAILY [facility] Lactulose (Lactulose) 20 gm PO DAILYPRN PRN PRN Reason: Constipation Last Admin: 07/03/18 02:27 Dose: 20 gm Nifedipine (Procardia Xl) 30 mg PO DAILY [facility] Last Admin: 07/03/18 09:39 Dose: 30 mg Ondansetron HCl (Zofran Odt) 4 mg PO Q6H PRN PRN Reason: Nausea/Vomiting Ondansetron HCl (Zofran) 4 mg IVP Q6H PRN PRN Reason: Nausea/Vomiting Last Admin: 07/03/18 12:57 Dose: 4 mg Senna/Docusate Sodium (Senokot S) 2 tab PO BIDPRN PRN PRN Reason: Constipation Simvastatin (Zocor) 40 mg PO HS [facility] Sodium Bicarbonate (Bicarbonate, Sodium) 650 mg PO BID [facility] Last Admin: 07/03/18 09:40 Dose: 650 mg
[2018-07-03] MEDS ORDERED: Labetalol HCl 100 MG/20 ML VIAL SLOW IVP PRN (15:50)
--- NOTE | 2018-07-03 18:17 | CON-2 ---
DATE OF CONSULTATION: 07/03/2018 REASON FOR CONSULTATION: Chest pain. HISTORY OF PRESENT ILLNESS: Ms. Medrano is a very pleasant 57-year-old female who presents to the Emergency Department with complaints of chest pain. The patient states that at approximately 1900 last night she started to feel really dizzy and nauseous and soon thereafter, she started to develop chest pain located in the center of her chest, described as chest pressure with no radiation of pain to her arm. Patient does state that she was having some pain that radiated between her scapulas. Patient denied any diaphoresis or shortness of breath associated with the chest pain. She called EMS, and in the ambulance was given 4 nitroglycerin tablets. Her pain did resolve shortly after administration of the medication. The patient states that she has not had chest pain like this in many years, although it is similar to past episodes of chest pain. The patient initially presented to [place] but was transferred to [place] [facility] for further workup of her chest pain and for worsening kidney function. During the consultation visit today, the patient denied any chest pain, shortness of breath, diaphoresis. The patient does endorse nausea and had several episodes of emesis while in the room. She states she has mostly been nauseated and has not had any illness prior to yesterday night. The patient did recently see her manager hris, Dr. Montilla 3 weeks ago. Her GFR at that time was 23, but she was not a candidate for dialysis. She was supposed to return in October for reevaluation. She was noted to have stage 5 chronic kidney disease during this hospitalization with an elevated potassium at 7, as well as metabolic acidosis. Last echocardiogram was on 02/15/2017 at which time her ejection fraction was noted to be 60%-65% with grade 2/3 diastolic dysfunction and inferoseptal and inferior hypokinesis. The patient was also noted to have aortic valve sclerosis, but the valve did open well. Patient was also noted to have mild aortic insufficiency. Last cardiac catheterization was performed on 06/27/2016. At that time, the patient was noted to have diffuse distal left anterior descending disease with stenosis of ostial diagonal branch. Recommendations at that time were to do medical therapy as she was not a candidate for revascularization. Of note, patient was discharged on Imdur during previous hospitalization. This was to help with her chest pain as well as her blood pressure. At some point, patient was reportedly told to stop the Imdur, although she cannot recall who told her to do so. She states that the Imdur did help her with her chest pain when she was taking it. She has been off of that medication for approximately 1 year. PAST MEDICAL HISTORY: 1. Chronic diastolic dysfunction. 2. Severe multivessel coronary artery disease. 3. Chronic kidney disease, stage 5. 4. Hypertension. 5. CVA in 2010. 6. Hyperlipidemia. 7. Lupus. 8. Anxiety. OUTPATIENT MEDICATIONS: 1. Aspirin 81 mg daily. 2. Carvedilol 25 mg b.i.d. 3. Simvastatin 40 mg at bedtime. 4. Nifedipine 30 mg daily. 5. Clonidine 0.3 mg at bedtime. 6. Lasix 40 mg daily. 7. Sodium bicarbonate 650 mg p.o. b.i.d. 8. Calcium acetate 667 mg p.o. t.i.d. ALLERGIES: 1. HYDRALAZINE, anaphylaxis. 2. NYQUIL. FAMILY HISTORY: Father had DE at 44. Mother with a history of diabetes mellitus type 2. SOCIAL HISTORY: The patient was a former smoker. She denies any alcohol or drug use. REVIEW OF SYSTEMS: A 12-point review of systems was performed and all were negative, unless stated in history of present illness. PHYSICAL EXAMINATION: VITAL SIGNS: Temperature 98.1 degrees Fahrenheit, pulse 98, respiratory rate is 20, oxygen saturation 98% on room air, blood pressure 173/73. GENERAL: Awake, alert and oriented x3, no distress. HEENT: Normocephalic, atraumatic. NECK: Supple. LUNGS: Clear to auscultation bilaterally. CARDIOVASCULAR: Regular rate and rhythm. Notable systolic murmur heard best at the second intercostal space to the left of the sternum. ABDOMEN: Soft, positive bowel sounds. EXTREMITIES: No edema. SKIN: Warm and dry. LABORATORY DATA: Reviewed. CBC reveals a white blood cell count of 8.2, hemoglobin 9.2, hematocrit 28.5, platelets of 199. Chemistry revealed sodium 138, potassium initially 7 down to 6.4, chloride 116, carbon dioxide 14, BUN of 65, creatinine of 4.13, GFR of 11, calcium of 8.7, phosphorus of 5.1, magnesium of 2.2. Uric acid level was noted to be 7.9. Troponin negative x3. Blood gas showed a VBG pH 7.3, pCO2 of 26.4 and pO2 of 88. EKG was reviewed. Chest x-ray showed pulmonary vascular prominence and interstitial edema. Renal ultrasound showed small bilateral nonobstructing renal calculi without evidence of hydronephrosis. There is no definite renal parenchymal mass seen. ASSESSMENT AND PLAN: 1. Chest pain: Likely related to angina. Patient noted to have diffuse distal LAD disease which is not amenable to revascularization on cardiac catheterization in 06/2016. Recommend strict blood pressure control and lifetime therapy with aspirin/statin therapy. Troponins were negative x3. The patient will benefit from risk factor reduction by strict management of comorbid conditions. We will restart patient on Imdur for control of angina as well as blood pressure. The patient does follow with Nephrology for management of her hypertension and we will defer further hypertension management to Nephrology at this time. We will start Imdur at 60 mg q.a.m. and titrate up as tolerable. Continue other medications for now, medical therapy for her multivessel disease. Echocardiogram pending. 2. Anemia: Likely chronic disease given her renal dysfunction. Nephrology has been consulted by primary team. The patient may benefit from a hemoglobin level above 10, which may be achieved by renal replacement regimen like Epogen. 3. Chronic kidney disease stage 5: Nephrology has been consulted and will manage. 4. Hypertension: Strict blood pressure control. The addition of Imdur for blood pressure, anginal symptoms. 5. Hyperlipidemia. Continue current statin therapy. Last LDL was a few years ago and was noted to be 29. 6. Diabetes mellitus type 2: Per patient, this is diet controlled. May consider rechecking her hemoglobin A1c to further evaluate. This is Dr. Paulette Rosales dictating on behalf of Dr. Samuel Avila. Thank you for allowing us to participate in the care of your patient. We will continue to follow. CHEPED
[2018-07-03] MEDS: cloNIDine 0.3 MG TAB PO SCH (20:48)
[2018-07-03] MEDS: Calcium Carbonate 500 MG ChewTAB PO SCH (20:49)
[2018-07-03] MEDS: Simvastatin 40 MG TAB PO SCH (20:49)
--- NOTE | 2018-07-03 20:55 | CON ---
DATE OF CONSULTATION: 07/03/2018 REASON FOR CONSULTATION: Chest pain. HISTORY OF PRESENT ILLNESS: Ms. Medrano is a very pleasant 57-year-old well known to myself who comes to the hospital for chest pain. She has chronic kidney disease stage 5 and actually had a heart cat heterization back in 2016 that showed diffuse disease distally on her LAD. She came in and she start ed to have chest pain, so she went to the ER and was transferred over for evaluation. She had been v omiting as well. She states that the pain feels in between her scapulas. She states that is when sh e moves. Her troponins are completely negative and currently, she is still having pain worse when sh e moves around. Recently, she had her Imdur stopped, thought to be for low blood pressure. Her bloo d pressure was actually high. Her potassium was elevated as well, so she was transferred over here f [facility] for further evaluation for all of this stuff. Ms. Medrano is currently chest pain free . PAST MEDICAL HISTORY: 1. Lupus. 2. Type 2 diabetes. 3. Hypertension. 4. Hyperlipidemia. 5. History of cerebrovascular accidents in the past. 6. Chronic kidney disease stage 5. 7. Coronary artery disease. FAMILY HISTORY: Noncontributory. SOCIAL HISTORY: No alcohol, tobacco or drugs. PAST SURGICAL HISTORY: 1. Bilateral heel spur removal. 2. Lasix surgery. 3. Cholecystectomy. 4. Dialysis shunt in the past. 5. Tubal ligation. FAMILY HISTORY: Noncontributory. OUTPATIENT MEDICATIONS: 1. Aspirin 81 a day. 2. Carvedilol 25 mg b.i.d. 3. Simvastatin 40 mg at bedtime. 4. Nifedipine 30 mg a day. 5. Clonidine 0.3 mg at bedtime only. 6. Lasix 40 mg daily. 7. Sodium bicarbonate. 8. Calcium acetate. ALLERGIES: 1. DEXTROMETHORPHAN. 2. HYDRALAZINE. 3. NYQUIL. REVIEW OF SYSTEMS: Twelve-point review of systems was done and is all negative unless stated in the history of present illness. PHYSICAL EXAMINATION: VITAL SIGNS: Temperature 98.1, pulse 98, respiration rate 20, satting 98% on room air, blood pressur e 173/73. GENERAL: Awake, alert, oriented x3, in no distress. HEENT: Normocephalic, atraumatic. NECK: Supple. LUNGS: Clear. CARDIOVASCULAR: S1, S2. There is no S3 or S4, no murmurs. ABDOMEN: Soft with bowel sounds. EXTREMITIES: No edema. SKIN: Warm and dry. LABORATORY WORK: Reviewed. CBC with a white count of 8.2, hemoglobin 9.3, hematocrit 28, platelet c ount of 199. ABGs were reviewed. Chemistries were reviewed. Potassium on admission was 7.0 down to 4.4, creatinine is stable at 4.13 with a GFR of 11. Toxicology: Beta hydroxybutyrate was normal. Renal ultrasound was reviewed. She has some nonobstructive renal stones. ASSESSMENT AND PLAN: 1. Chest pain, most likely related to her angina. 2. Coronary artery disease, severe diffuse distal left anterior descending disease not evident with revascularization. 3. Chronic kidney disease stage 5. 4. Hypertension. PLAN: 1. We will add Imdur back to her regimen at 60 mg p.o. every day. 2. Pain is most likely related to angina and hypertension. Differential diagnosis includes an aorti c dissection; however, she does not look toxic and up for an aortic dissection. She has pain when sh e moves and this would indicate possibly just musculoskeletal pain. This could also be making her bl ood pressure be elevated. 3. Currently, she would not be a good candidate for a CT as she is still not on dialysis and her cre atinine is high, she will need contrast for CT angio to rule out dissection. 4. Continue other medications. 5. We will get an echocardiogram to reevaluate LV function. Her most recent LVEF was in 2017, at wh ich point her EF was 60-65% with grade 2/3 diastolic dysfunction and mild aortic insufficiency. 6. We will follow.
[2018-07-04] MEDS: Nitroglycerin 0.4 MG TAB (25 Tab Bottle) SL PRN ×2 (00:06→00:11)
[2018-07-04] MEDS: Ondansetron ODT 4 MG TAB PO PRN ×3 (00:12→14:29)
[2018-07-04] MEDS: Acetaminophen 325 MG TAB PO PRN ×3 (00:24→14:29)
[2018-07-04] MEDS ORDERED: Sodium Chloride 0.9% 20 ML ONE (00:57)
[2018-07-04] MEDS ORDERED: Pantoprazole 40 MG VIAL IVP SCH (01:00)
[2018-07-04 01:46] LABS: CKMB 0.5 ng/mL (0-6.6); Troponin I Less than 0.010 ng/mL (< 0.028)
[2018-07-04 05:36] LABS: #Eosinphils 0.1 thou/uL (0.0-0.7); #Lymphocytes 0.6 thou/uL (1.20-3.40); #Monocytes 0.5 thou/uL (0.11-0.59); %Basophils 0.5 % (0.0-1.0); %Eosinophils 0.9 % (0.0-10.0); %Lymphocytes 7.2 % (21.0-51.0); %Monocytes 6.3 % (0.0-10.0); Hemoglobin 8.9 g/dL (12.0-16.0); Mean Corpuscular HGB CONC 32.3 g/dL (32.0-36.0); Mean Corpuscular Hemoglobin 31.3 pg (27.0-31.0); Mean Corpuscular Volume 97.1 fL (78.0-98.0); Mean Platelet Volume 7.9 fL (7.4-10.4); Platelet Count 179 thou/uL (130-400); RBC Distribution Width 11.9 % (11.5-14.5); Red Blood Cell (RBC) Count 2.83 mill/uL (4.20-5.40); White Blood Cell (WBC) Count 8.2 thou/uL (4.8-10.8)
[2018-07-04 05:43] LABS: Albumin 3.7 g/dL (3.5-5.0); Anion Gap 16 mmol/L (10-20); BUN (Urea Nitrogen) 33 mg/dL (9.8-20.1); Calc. Creatinine Clearance 21 mL/min (70-130); Calcium 8.6 mg/dL (7.8-10.44); Carbon Dioxide 15 mmol/L (22-29); Chloride 116 mmol/L (98-107); Estimated GFR-MDRD 10; Glucose 118 mg/dL (70-105); Magnesium 1.7 mg/dL (1.6-2.6); Potassium 5.1 mmol/L (3.5-5.1); Sodium 142 mmol/L (136-145)
[2018-07-04 05:49] LABS: Troponin I Less than 0.010 ng/mL (< 0.028)
[2018-07-04] MEDS: Furosemide 40 MG TAB PO SCH (08:16)
[2018-07-04] MEDS: Sodium Bicarbonate Tab 325 MG TAB PO SCH ×2 (08:16→21:01)
[2018-07-04] MEDS: Magnesium Oxide 400 MG TAB PO SCH (08:16)
[2018-07-04] MEDS: Carvedilol 25 MG TAB PO SCH ×2 (08:16→21:01)
[2018-07-04] MEDS: Aspirin 81 mg Enteric Coated Tablet PO SCH (08:16)
[2018-07-04] MEDS: Calcium Carbonate 500 MG ChewTAB PO SCH ×2 (08:16→21:00)
[2018-07-04] MEDS: Calcium Acetate 667 MG CAP PO SCH ×3 (08:17→17:17)
[2018-07-04] MEDS: NIFEdipine XL 30 MG TAB PO SCH (08:17)
[2018-07-04] MEDS: Heparin 5,000 UNITS/ML VIAL SC SCH ×2 (08:17→21:01)
[2018-07-04 10:08] LABS: ALT (SGPT) 56 U/L (8-55); AST (SGOT) 140 U/L (5-34); Albumin 3.7 g/dL (3.5-5.0); Alkaline Phosphatase 134 U/L (40-150); Bilirubin, Direct 0.2 mg/dL (0.1-0.3); Bilirubin, Total 0.4 mg/dL (0.2-1.2); Protein, Total 7.8 g/dL (6.0-8.3)
--- NOTE | 2018-07-04 13:11 | PDOC.CTH ---
Cardiology Progress Note - Subjective She had chest pain when her BP was up tot he 180's. - Objective Vital Signs Temp Pulse Resp BP BP Pulse Ox 07/04/18 12:00 97.9 F 73 16 143/68 H 98 07/04/18 08:17 76 186/81 H 07/04/18 08:00 99.6 F 76 16 186/81 H 98 07/04/18 05:38 96 07/04/18 04:00 98.9 F 75 18 136/64 96 Weight 213 lb 3.2 oz 07/03/18 07/04/18 07/05/18 06:59 06:59 06:59 Intake Total 240 490 Output Total 400 800 Balance -160 -310 - Physical Examination General/Neuro: alert & oriented x3, NAD Neck: no JVD present Lungs: CTA, unlabored respirations Heart: RRR Abdomen: NT/ND Extremities: other: (no edema.) - Telemetry Telemetry Rhythm: NSR - Labs Result Diagrams: 07/04/18 05:15 07/04/18 05:15 Troponin/CKMB CK-MB (CK-2) 0.5 ng/mL (0-6.6) 07/04/18 01:16 Troponin I Less than 0.010 ng/mL (< 0.028) 07/04/18 05:15 - Assessment/Plan 1. HTN 2. CAD, diffuse distal LAD disease not a candidate for revascularization. 3. CKD Stage 5 4. Angina PLAN: - Will increase anti anginals. - Will increase CCB.
[2018-07-04] MEDS: Simvastatin 40 MG TAB PO SCH (21:00)
[2018-07-04] MEDS: cloNIDine 0.3 MG TAB PO SCH (21:01)
--- NOTE | 2018-07-04 22:14 | PDOC.PN ---
- Subjective Encounter Start Date: 07/04/18 Encounter Start Time: 10:00 Patient seen and examined for CP. No new CP. No new complaints. No overnight events - Objective Resuscitation Status: Resuscitation Status FULL:Full Resuscitation MAR Reviewed: Yes Vital Signs & Weight: Vital Signs (12 hours) Temp Pulse Resp BP BP Pulse Ox 07/04/18 21:01 150/63 H 07/04/18 19:50 98.7 F 70 18 150/63 H 95 07/04/18 16:50 98.7 F 72 20 133/65 95 07/04/18 12:00 97.9 F 73 16 143/68 H 98 Weight Weight 213 lb 3.2 oz I&O: 07/03/18 07/04/18 07/05/18 06:59 06:59 06:59 Intake Total 240 490 Output Total 400 800 Balance -160 -310 Result Diagrams: 07/04/18 05:15 07/04/18 05:15 Additional Labs: Accuchecks 07/04/18 07/04/18 07/04/18 20:52 17:11 11:04 POC Glucose 107 105 110 07/04/18 05:36 POC Glucose 112 H EKG Reviewed by me: Yes (Tele SR) Phys Exam - Physical Examination Constitutional: NAD Respiratory: no wheezing, no rhonchi Cardiovascular: RRR, no rub Gastrointestinal: soft, non-tender, positive bowel sounds Musculoskeletal: no edema Neurological: moves all 4 limbs Dx/Plan - Plan DVT proph w/heparin, DVT proph w/SCDs 1. Chest pain with diffuse LAD 2. CKD 5 with Hyperkalemia/ Metabolic acidosis due to renal failure - not compliant with sodium bicarb 3. HTN - uncontrolled 4. HLD 5. SLE 6. DM2/ history of CVA/Chronic diastolic heart failure PLAN: Imdur added Cont other meds as below AM labs Renal function at baseline Cont sliding scale BMP in AM Review of Systems - Review of Systems Respiratory: negative: Cough, Dry, Shortness of Breath, Hemoptysis, SOB with Excertion, Pleuritic Pain, Sputum, Wheezing Gastrointestinal: negative: Nausea, Vomiting, Abdominal Pain, Diarrhea, Constipation, Melena, Hematochezia, Other - Medications/Allergies Allergies/Adverse Reactions: Allergies Allergy/AdvReac Type Severity Reaction Status Date / Time dextromethorphan HBr Allergy Verified 07/03/18 01:09 [From NyQuil] doxylamine succinate Allergy Verified 07/03/18 01:09 [From NyQuil] hydralazine Allergy Anaphylaxis Verified 07/03/18 01:09 pseudoephedrine HCl Allergy Verified 07/03/18 01:09 [From NyQuil] Medications: Current Medications Acetaminophen (Tylenol) 650 mg PO Q4H PRN PRN Reason: Headache/Fever/Mild Pain (1-3) Last Admin: 07/04/18 14:29 Dose: 650 mg Aspirin (Ecotrin) 81 mg PO DAILY [facility] Last Admin: 07/04/18 08:16 Dose: 81 mg Bisacodyl (Dulcolax) 10 mg PO DAILYPRN PRN PRN Reason: Constipation Calcium Acetate (Phoslo) 667 mg PO TID[facility] Last Admin: 07/04/18 17:17 Dose: 667 mg Calcium Carbonate (Tums) 1,000 mg PO BID [facility] Last Admin: 07/04/18 21:00 Dose: 1,000 mg Carvedilol (Coreg) 25 mg PO BID [facility] Last Admin: 07/04/18 21:01 Dose: 25 mg Cholecalciferol (Vitamin D3) 2,000 units PO DAILY [facility] Last Admin: 07/04/18 08:17 Dose: 2,000 units Clonidine (Catapres) 0.3 mg PO HS [facility] Last Admin: 07/04/18 21:01 Dose: 0.3 mg Dextrose/Water (Dextrose 50%) 25 gm SLOW IVP PRN PRN PRN Reason: Hypoglycemia Furosemide (Lasix) 40 mg PO DAILY [facility] Last Admin: 07/04/18 08:16 Dose: 40 mg Glucagon (Glucagon) 1 mg IM PRN PRN PRN Reason: Hypoglycemia Heparin Sodium (Porcine) (Heparin) 5,000 units SC BID [facility] Last Admin: 07/04/18 21:01 Dose: 5,000 units Dextrose/Water (D5w) 1,000 mls @ 0 mls/hr IV .Q0M PRN PRN Reason: Hypoglycemia Insulin Human Lispro (Humalog) 0 units SC .MILD SLIDING SCALE PRN PRN Reason: Mild Correctional Scale Insulin Human Lispro (Humalog) 0 units SC .BEDTIME SLIDING SC PRN PRN Reason: Bedtime Correctional Scale Isosorbide Mononitrate (Imdur) 60 mg PO DAILY [facility] Last Admin: 07/04/18 08:17 Dose: 60 mg Labetalol HCl (Normodyne) 10 mg SLOW IVP Q4H PRN PRN Reason: SBP Greater Than 170 Lactulose (Lactulose) 20 gm PO DAILYPRN PRN PRN Reason: Constipation Last Admin: 07/03/18 02:27 Dose: 20 gm Magnesium Oxide (Magnesium Oxide) 400 mg PO DAILY [facility] Last Admin: 07/04/18 08:16 Dose: 400 mg Nifedipine (Procardia Xl) 60 mg PO DAILY [facility] Nitroglycerin (Nitrostat) 0.4 mg SL Q5MIN PRN PRN Reason: Chest Pain Last Admin: 07/04/18 00:11 Dose: 0.4 mg Ondansetron HCl (Zofran Odt) 4 mg PO Q6H PRN PRN Reason: Nausea/Vomiting Last Admin: 07/04/18 14:29 Dose: 4 mg Ondansetron HCl (Zofran) 4 mg IVP Q6H PRN PRN Reason: Nausea/Vomiting Last Admin: 07/03/18 12:57 Dose: 4 mg Senna/Docusate Sodium (Senokot S) 2 tab PO BIDPRN PRN PRN Reason: Constipation Simvastatin (Zocor) 40 mg PO HS [facility] Last Admin: 07/04/18 21:00 Dose: 40 mg Sodium Bicarbonate (Bicarbonate, Sodium) 650 mg PO BID [facility] Last Admin: 07/04/18 21:01 Dose: 650 mg
[2018-07-05 04:56] LABS: Anion Gap 14 mmol/L (10-20); BUN (Urea Nitrogen) 56 mg/dL (9.8-20.1); Calc. Creatinine Clearance 20 mL/min (70-130); Calcium 8.3 mg/dL (7.8-10.44); Carbon Dioxide 14 mmol/L (22-29); Chloride 112 mmol/L (98-107); Estimated GFR-MDRD 10; Glucose 122 mg/dL (70-105); Potassium 4.8 mmol/L (3.5-5.1); Sodium 135 mmol/L (136-145)
[2018-07-05] MEDS: Nitroglycerin 0.4 MG TAB (25 Tab Bottle) SL PRN (08:33)
[2018-07-05] MEDS ORDERED: NIFEdipine XL 60 MG TAB PO SCH (09:00)
[2018-07-05] MEDS: Aspirin 81 mg Enteric Coated Tablet PO SCH (09:30)
[2018-07-05] MEDS: Calcium Acetate 667 MG CAP PO SCH ×3 (09:30→17:58)
[2018-07-05] MEDS: Furosemide 40 MG TAB PO SCH (09:31)
[2018-07-05] MEDS: Magnesium Oxide 400 MG TAB PO SCH (09:31)
[2018-07-05] MEDS: Carvedilol 25 MG TAB PO SCH ×2 (09:31→21:31)
[2018-07-05] MEDS: Calcium Carbonate 500 MG ChewTAB PO SCH ×2 (09:31→21:31)
[2018-07-05] MEDS: Ondansetron ODT 4 MG TAB PO PRN (09:32)
[2018-07-05] MEDS: Sodium Bicarbonate Tab 325 MG TAB PO SCH ×2 (09:32→21:32)
[2018-07-05] MEDS: Heparin 5,000 UNITS/ML VIAL SC SCH ×2 (09:37→21:32)
[2018-07-05 09:44] LABS: Troponin I Less than 0.010 ng/mL (< 0.028)
[2018-07-05 10:31] LABS: CKMB 0.4 ng/mL (0-6.6)
--- NOTE | 2018-07-05 10:40 | PDOC.CTH ---
<TiannaPurvi adorno - Last Filed: 07/05/18 10:39> Cardiology Progress Note - Subjective Patient with c/o blurry vision. Says about an hour ago felt nauseated, vision changes and sweaty. Also pain to chest and left arm. Given nitro and pain resolved. Other symptoms have persisted. EKG and tele both reviewed and normal. Patient now with c/o vision changes and nausea. - Objective Vital Signs Temp Pulse Resp BP BP Pulse Ox 07/05/18 09:32 82 07/05/18 08:05 98.5 F 82 18 168/70 H 98 07/05/18 03:22 98.0 F 63 18 138/63 98 07/04/18 23:06 98.4 F 61 17 123/59 L 93 L Weight 211 lb 9.6 oz 07/04/18 07/05/18 07/06/18 06:59 06:59 05:59 Intake Total 490 Output Total 800 Balance -310 - Physical Examination General/Neuro: alert & oriented x3 Neck: no JVD present Lungs: CTA Heart: RRR Abdomen: NT/ND - Telemetry Telemetry Rhythm: SR - Labs Result Diagrams: 07/04/18 05:15 07/05/18 04:15 Troponin/CKMB CK-MB (CK-2) 0.4 ng/mL (0-6.6) 07/05/18 08:49 Troponin I Less than 0.010 ng/mL (< 0.028) 07/05/18 08:49 - Assessment/Plan 1. HTN - improved on increased ImDur, but still labile. Elevated today at time of episode, but patient also did not receive morning meds until 45 minutes after episode occurred. 2. CAD, diffuse distal LAD disease not a candidate for revascularization. 3. CKD Stage 5 4. UA 5. Vision changes Continue current anti-anginals. May need CT head with acute vision changes. Advised nurse to notify primary team. <Emiliano Gerard - Last Filed: 07/05/18 16:14> Cardiology Progress Note - Objective Vital Signs Temp Pulse Resp BP BP Pulse Ox 07/05/18 15:18 98.3 F 71 18 124/58 L 98 07/05/18 12:09 98.5 F 75 18 158/68 H 99 07/05/18 09:32 82 07/05/18 08:05 98.5 F 82 18 168/70 H 98 07/05/18 08:02 98 Weight 211 lb 9.6 oz 07/04/18 07/05/18 07/06/18 06:59 06:59 05:59 Intake Total 490 Output Total 800 Balance -310 - Labs Result Diagrams: 07/04/18 05:15 07/05/18 04:15 Troponin/CKMB CK-MB (CK-2) 0.4 ng/mL (0-6.6) 07/05/18 08:49 Troponin I Less than 0.010 ng/mL (< 0.028) 07/05/18 08:49 - Assessment/Plan Agree with the above. No changes. Pt to be evaluated for neurologic etiology per primary team Increase nifedipine May need to add hydralazine Avoid ARB, ACEI and HCTZ secondary to RI
--- NOTE | 2018-07-05 11:01 | PDOC.PN ---
- Subjective Encounter Start Date: 07/05/18 Encounter Start Time: 07:15 -: old records requested/rev Patient seen and examined. No overnight events c/o blurry vision. with nausea and diaphoresis, had chest pain with left arm pain, EKG was normal, but pt continue to c/o blurred vision. - Objective Resuscitation Status: Resuscitation Status FULL:Full Resuscitation MAR Reviewed: Yes Vital Signs & Weight: Vital Signs (12 hours) Temp Pulse Resp BP BP Pulse Ox 07/05/18 09:32 82 07/05/18 08:05 98.5 F 82 18 168/70 H 98 07/05/18 03:22 98.0 F 63 18 138/63 98 07/04/18 23:06 98.4 F 61 17 123/59 L 93 L Weight Weight 211 lb 9.6 oz I&O: 07/04/18 07/05/18 07/06/18 06:59 06:59 05:59 Intake Total 490 Output Total 800 Balance -310 Result Diagrams: 07/04/18 05:15 07/05/18 04:15 Additional Labs: Accuchecks 07/05/18 07/05/18 07/04/18 08:17 05:22 20:52 POC Glucose 108 114 H 107 07/04/18 07/04/18 17:11 11:04 POC Glucose 105 110 EKG Reviewed by me: Yes (low voltage, no new ischemic changes) Phys Exam - Physical Examination Constitutional: NAD HEENT: PERRLA, moist MMs, sclera anicteric Neck: no JVD, supple Respiratory: no wheezing, no rales, no rhonchi Cardiovascular: RRR, no significant murmur, no rub Gastrointestinal: soft, non-tender, no distention, positive bowel sounds Musculoskeletal: no edema, pulses present Neurological: non-focal, normal sensation, moves all 4 limbs Lymphatic: no nodes Psychiatric: normal affect, A&O x 3 Skin: no rash, normal turgor Dx/Plan (1) Blurred vision Code(s): H53.8 - OTHER VISUAL DISTURBANCES Status: Acute (2) Chest pain Code(s): R07.9 - CHEST PAIN, UNSPECIFIED Status: Acute Comment: due to CAD, on medical therapy (3) Anemia of renal disease Code(s): D63.1 - ANEMIA IN CHRONIC KIDNEY DISEASE Status: Chronic (4) Anxiety and depression Code(s): F41.9 - ANXIETY DISORDER, UNSPECIFIED; F32.9 - MAJOR DEPRESSIVE DISORDER, SINGLE EPISODE, UNSPECIFIED Status: Chronic (5) CKD (chronic kidney disease) stage 5, GFR less than 15 ml/min Code(s): N18.5 - CHRONIC KIDNEY DISEASE, STAGE 5 Status: Chronic Comment: stable (6) Chronic stage c diastolic heart failure Code(s): I50.32 - CHRONIC DIASTOLIC (CONGESTIVE) HEART FAILURE Status: Chronic (7) Coronary artery disease Code(s): I25.10 - ATHSCL HEART DISEASE OF [place] CORONARY ARTERY W/O ANG PCTRS Status: Chronic Qualifiers: Coronary Disease-Associated Artery/Lesion type: [place] artery [place] vs. transplanted heart: [place] heart Associated angina: without angina Qualified Code(s): I25.10 - Atherosclerotic heart disease of [place] coronary artery without angina pectoris Comment: Medical mgmt (8) DM type 2 (diabetes mellitus, type 2) Status: Chronic Qualifiers: Diabetes mellitus senior care insulin use: without termite control technician use Diabetes mellitus complication status: with kidney complications Diabetes mellitus complication detail: with chronic kidney disease Chronic kidney disease stage : stage 5, not on chronic dialysis Qualified Code(s): E11.22 - Type 2 diabetes mellitus with diabetic chronic kidney disease; N18.5 - Chronic kidney disease, stage 5 Comment: (9) Hyperlipidemia Code(s): E78.5 - HYPERLIPIDEMIA, UNSPECIFIED Status: Chronic Qualifiers: Hyperlipidemia type: unspecified Qualified Code(s): E78.5 - Hyperlipidemia , unspecified Comment: continue statin (10) Hypertension Code(s): I10 - ESSENTIAL (PRIMARY) HYPERTENSION Status: Chronic Qualifiers: Hypertension type: essential hypertension Qualified Code(s): I10 - Essential (primary) hypertension Comment: (11) Lupus (systemic lupus erythematosus) Code(s): M32.9 - SYSTEMIC LUPUS ERYTHEMATOSUS, UNSPECIFIED Status: Chronic Qualifiers: Systemic lupus erythematosus organ involvement: glomerular disease Comment: stable (12) Metabolic acidosis Code(s): E87.2 - ACIDOSIS Status: Chronic Comment: (13) Nephrolithiasis Status: Chronic (14) Noncompliance with medications Code(s): Z91.14 - PATIENT'S OTHER NONCOMPLIANCE WITH MEDICATION REGIMEN Status : Chronic (15) Obesity (BMI 30-39.9) Code(s): E66.9 - OBESITY, UNSPECIFIED Status: Chronic (16) Secondary hyperparathyroidism of renal origin Code(s): N25.81 - SECONDARY HYPERPARATHYROIDISM OF RENAL ORIGIN Status: Chronic - Plan cont current plan of care * EKG and cardiac enzyme checked this morning and normal * will get MRI brain for her blurred vision, vitals stable * medication reviewed as below * symptomatic treatment. * currently on optimum medical therapy for CAD * nephrology and cardiology following Review of Systems - Review of Systems ENT: negative: Ear Pain, Ear Discharge, Nose Pain, Nose Discharge, Nose Congestion, Mouth Pain, Mouth Swelling, Throat Pain, Throat Swelling, Other Respiratory: negative: Cough, Dry, Shortness of Breath, Hemoptysis, SOB with Excertion, Pleuritic Pain, Sputum, Wheezing Cardiovascular: negative: chest pain, palpitations, orthopnea, paroxysmal nocturnal dyspnea, edema, light headedness, other Gastrointestinal: negative: Nausea, Vomiting, Abdominal Pain, Diarrhea, Constipation, Melena, Hematochezia, Other Genitourinary: negative: Dysuria, Frequency, Incontinence, Hematuria, Retention , Other Musculoskeletal: negative: Neck Pain, Shoulder Pain, Arm Pain, Back Pain, Hand Pain, Leg Pain, Foot Pain, Other Skin: negative: Rash, Lesions, Arley, Bruising, Other - Medications/Allergies Allergies/Adverse Reactions: Allergies Allergy/AdvReac Type Severity Reaction Status Date / Time dextromethorphan HBr Allergy Verified 07/03/18 01:09 [From NyQuil] doxylamine succinate Allergy Verified 07/03/18 01:09 [From NyQuil] hydralazine Allergy Anaphylaxis Verified 07/03/18 01:09 pseudoephedrine HCl Allergy Verified 07/03/18 01:09 [From NyQuil] Medications: Current Medications Acetaminophen (Tylenol) 650 mg PO Q4H PRN PRN Reason: Headache/Fever/Mild Pain (1-3) Last Admin: 07/04/18 14:29 Dose: 650 mg Aspirin (Ecotrin) 81 mg PO DAILY [facility] Last Admin: 07/05/18 09:30 Dose: 81 mg Bisacodyl (Dulcolax) 10 mg PO DAILYPRN PRN PRN Reason: Constipation Calcium Acetate (Phoslo) 667 mg PO TID-[facility] Last Admin: 07/05/18 09:30 Dose: 667 mg Calcium Carbonate (Tums) 1,000 mg PO BID [facility] Last Admin: 07/05/18 09:31 Dose: 1,000 mg Carvedilol (Coreg) 25 mg PO BID [facility] Last Admin: 07/05/18 09:31 Dose: 25 mg Cholecalciferol (Vitamin D3) 2,000 units PO DAILY [facility] Last Admin: 07/05/18 09:31 Dose: 2,000 units Clonidine (Catapres) 0.3 mg PO HS [facility] Last Admin: 07/04/18 21:01 Dose: 0.3 mg Dextrose/Water (Dextrose 50%) 25 gm SLOW IVP PRN PRN PRN Reason: Hypoglycemia Furosemide (Lasix) 40 mg PO DAILY [facility] Last Admin: 07/05/18 09:31 Dose: 40 mg Glucagon (Glucagon) 1 mg IM PRN PRN PRN Reason: Hypoglycemia Heparin Sodium (Porcine) (Heparin) 5,000 units SC BID [facility] Last Admin: 07/05/18 09:37 Dose: 5,000 units Dextrose/Water (D5w) 1,000 mls @ 0 mls/hr IV .Q0M PRN PRN Reason: Hypoglycemia Insulin Human Lispro (Humalog) 0 units SC .MILD SLIDING SCALE PRN PRN Reason: Mild Correctional Scale Insulin Human Lispro (Humalog) 0 units SC .BEDTIME SLIDING SC PRN PRN Reason: Bedtime Correctional Scale Isosorbide Mononitrate (Imdur) 60 mg PO DAILY [facility] Last Admin: 07/05/18 09:32 Dose: 60 mg Labetalol HCl (Normodyne) 10 mg SLOW IVP Q4H PRN PRN Reason: SBP Greater Than 170 Lactulose (Lactulose) 20 gm PO DAILYPRN PRN PRN Reason: Constipation Last Admin: 07/03/18 02:27 Dose: 20 gm Magnesium Oxide (Magnesium Oxide) 400 mg PO DAILY [facility] Last Admin: 07/05/18 09:31 Dose: 400 mg Nifedipine (Procardia Xl) 60 mg PO DAILY [facility] Last Admin: 07/05/18 09:32 Dose: 60 mg Nitroglycerin (Nitrostat) 0.4 mg SL Q5MIN PRN PRN Reason: Chest Pain Last Admin: 07/05/18 08:33 Dose: 0.4 mg Ondansetron HCl (Zofran Odt) 4 mg PO Q6H PRN PRN Reason: Nausea/Vomiting Last Admin: 07/05/18 09:32 Dose: 4 mg Ondansetron HCl (Zofran) 4 mg IVP Q6H PRN PRN Reason: Nausea/Vomiting Last Admin: 07/03/18 12:57 Dose: 4 mg Senna/Docusate Sodium (Senokot S) 2 tab PO BIDPRN PRN PRN Reason: Constipation Simvastatin (Zocor) 40 mg PO [facility] Last Admin: 07/04/18 21:00 Dose: 40 mg Sodium Bicarbonate (Bicarbonate, Sodium) 650 mg PO BID [facility] Last Admin: 07/05/18 09:32 Dose: 650 mg
[2018-07-05] MEDS ORDERED: Diabetic Tussin 200 MG/10 ML UDCUP PO PRN (11:04)
[2018-07-05] MEDS ORDERED: Cepastat Lozenges 1 LOZ PO PRN (11:04)
[2018-07-05] MEDS ORDERED: Artificial Tears 18 DROP/0.9 ML EA EYE PRN (11:04)
[2018-07-05] MEDS ORDERED: Acetaminophen 500 MG TAB PO PRN (11:04)
[2018-07-05] MEDS ORDERED: HYDROcodone/Acetaminophen 5/325 mg Tablet PO PRN (11:04)
[2018-07-05] MEDS ORDERED: Zolpidem Tartrate 5 MG TAB PO PRN (11:04)
[2018-07-05] MEDS ORDERED: Sodium Chloride 0.65% Nasal 44 ML BOT EA NARE PRN (11:04)
[2018-07-05] MEDS ORDERED: Eucerin (Mineral Oil/Petrolatum,White) 30 gm Jar TOP PRN (11:04)
--- NOTE | 2018-07-05 15:49 | MRI ---
MRI OF BRAIN WITHOUT CONTRAST: 07/05/18 HISTORY: Blurred vision since this morning. FINDINGS: Correlation is made with CT scan of 05/17/18. There are foci of T2 prolongation in the periventricular white matter consistent with mild chronic sm all vessel ischemic disease. 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 No restric jialene diffusion is seen. The ventricular size is appropriate and the basilar cisterns patent. No hemorr aaron, midline shift, or abnormal extra-axial fluid collections are seen. IMPRESSION: Chronic changes. No evidence of acute intracranial process. POS: [facility]
[2018-07-05] MEDS: cloNIDine 0.3 MG TAB PO SCH (21:31)
[2018-07-05] MEDS: Simvastatin 40 MG TAB PO SCH (21:32)
[2018-07-06] MEDS ORDERED: Clopidogrel Bisulfate 75 MG TAB PO SCH (09:00)
[2018-07-06] MEDS: Magnesium Oxide 400 MG TAB PO SCH (09:22)
[2018-07-06] MEDS: Calcium Carbonate 500 MG ChewTAB PO SCH ×2 (09:22→21:56)
[2018-07-06] MEDS: Calcium Acetate 667 MG CAP PO SCH ×3 (09:22→17:58)
[2018-07-06] MEDS: Aspirin 81 mg Enteric Coated Tablet PO SCH (09:22)
[2018-07-06] MEDS: Carvedilol 25 MG TAB PO SCH ×2 (09:22→21:57)
[2018-07-06] MEDS: Furosemide 40 MG TAB PO SCH (09:23)
[2018-07-06] MEDS: Sodium Bicarbonate Tab 325 MG TAB PO SCH ×2 (09:23→21:57)
[2018-07-06] MEDS: NIFEdipine XL 90 MG TAB PO SCH (09:23)
[2018-07-06] MEDS: Ondansetron ODT 4 MG TAB PO PRN ×2 (09:24→18:00)
--- NOTE | 2018-07-06 09:25 | PDOC.CTH ---
<TiannaPurvi adorno - Last Filed: 07/06/18 09:23> Cardiology Progress Note - Subjective Still with mild nausea and intermittent vision changes. No CP. - Objective Vital Signs Temp Pulse Resp BP Pulse Ox 07/06/18 08:20 98.6 F 70 18 167/70 H 97 07/06/18 05:04 6 L 07/06/18 03:27 97.9 F 63 18 141/67 H 95 Weight 208 lb 9.6 oz 07/05/18 07/06/18 07/07/18 07:59 06:59 06:59 Intake Total Output Total Balance - Physical Examination General/Neuro: alert & oriented x3 Neck: no JVD present Lungs: CTA Heart: RRR Abdomen: NT/ND Extremities: other: (no edema) - Telemetry Telemetry Rhythm: SR - Labs Result Diagrams: 07/04/18 05:15 07/05/18 04:15 Troponin/CKMB CK-MB (CK-2) 0.4 ng/mL (0-6.6) 07/05/18 08:49 Troponin I Less than 0.010 ng/mL (< 0.028) 07/05/18 08:49 - Assessment/Plan 1. HTN - 2. CAD, diffuse distal LAD disease not a candidate for revascularization. 3. CKD Stage 5 4. UA 5. Vision changes - MRI brain negative. Now transient BP improved after med changes. SBP labile 120s-160mmHg prior to meds. No further angina. Advised patient she needs to get OOB to shower and walk in [place] today. Hopefully home soon. <Emiliano Gerard - Last Filed: 07/06/18 14:28> Cardiology Progress Note - Objective Vital Signs Temp Pulse Resp BP BP Pulse Ox 07/06/18 11:21 98.8 F 69 18 131/60 96 07/06/18 09:23 70 07/06/18 08:20 98.6 F 70 18 167/70 H 97 07/06/18 05:04 6 L 07/06/18 03:27 97.9 F 63 18 141/67 H 95 Weight 208 lb 9.6 oz 07/05/18 07/06/18 07/07/18 07:59 06:59 06:59 Intake Total Output Total Balance - Labs Result Diagrams: 07/04/18 05:15 07/05/18 04:15 Troponin/CKMB CK-MB (CK-2) 0.4 ng/mL (0-6.6) 07/05/18 08:49 Troponin I Less than 0.010 ng/mL (< 0.028) 07/05/18 08:49
[2018-07-06] MEDS: Heparin 5,000 UNITS/ML VIAL SC SCH ×2 (09:37→21:57)
--- NOTE | 2018-07-06 10:22 | PDOC.PN ---
- Subjective Encounter Start Date: 07/06/18 Encounter Start Time: 07:00 -: old records requested/rev Patient seen and examined. No new complaints. No overnight events no chest pain, no blurred vision - Objective Resuscitation Status: Resuscitation Status FULL:Full Resuscitation MAR Reviewed: Yes Vital Signs & Weight: Vital Signs (12 hours) Temp Pulse Resp BP Pulse Ox 07/06/18 09:23 70 07/06/18 08:20 98.6 F 70 18 167/70 H 97 07/06/18 05:04 6 L 07/06/18 03:27 97.9 F 63 18 141/67 H 95 Weight Weight 208 lb 9.6 oz I&O: 07/05/18 07/06/18 07/07/18 07:59 06:59 06:59 Intake Total Output Total Balance Result Diagrams: 07/04/18 05:15 07/05/18 04:15 Additional Labs: Accuchecks 07/06/18 07/05/18 07/05/18 05:19 20:31 16:38 POC Glucose 103 110 141 H Radiology Reviewed by me: Yes (mri brain no acute process) EKG Reviewed by me: Yes (nsr) Phys Exam - Physical Examination Constitutional: NAD HEENT: PERRLA, moist MMs, sclera anicteric Neck: no JVD, supple Respiratory: no wheezing, no rales, no rhonchi Cardiovascular: RRR, no significant murmur, no rub Gastrointestinal: soft, non-tender, no distention, positive bowel sounds Musculoskeletal: no edema, pulses present Neurological: non-focal, normal sensation, moves all 4 limbs Psychiatric: normal affect, A&O x 3 Skin: no rash, normal turgor Dx/Plan (1) Blurred vision Code(s): H53.8 - OTHER VISUAL DISTURBANCES Status: Resolved (2) Chest pain Code(s): R07.9 - CHEST PAIN, UNSPECIFIED Status: Resolved Comment: due to CAD, on medical therapy (3) Anemia of renal disease Code(s): D63.1 - ANEMIA IN CHRONIC KIDNEY DISEASE Status: Chronic (4) Anxiety and depression Code(s): F41.9 - ANXIETY DISORDER, UNSPECIFIED; F32.9 - MAJOR DEPRESSIVE DISORDER, SINGLE EPISODE, UNSPECIFIED Status: Chronic (5) CKD (chronic kidney disease) stage 5, GFR less than 15 ml/min Code(s): N18.5 - CHRONIC KIDNEY DISEASE, STAGE 5 Status: Chronic Comment: stable (6) Chronic stage c diastolic heart failure Code(s): I50.32 - CHRONIC DIASTOLIC (CONGESTIVE) HEART FAILURE Status: Chronic (7) Coronary artery disease Code(s): I25.10 - ATHSCL HEART DISEASE OF [place] CORONARY ARTERY W/O ANG PCTRS Status: Chronic Qualifiers: Coronary Disease-Associated Artery/Lesion type: [place] artery [place] vs. transplanted heart: [place] heart Associated angina: without angina Qualified Code(s): I25.10 - Atherosclerotic heart disease of [place] coronary artery without angina pectoris Comment: Medical mgmt (8) DM type 2 (diabetes mellitus, type 2) Status: Chronic Qualifiers: Diabetes mellitus tank terminal gauger insulin use: without mcfp use Diabetes mellitus complication status: with kidney complications Diabetes mellitus complication detail: with chronic kidney disease Chronic kidney disease stage : stage 5, not on chronic dialysis Qualified Code(s): E11.22 - Type 2 diabetes mellitus with diabetic chronic kidney disease; N18.5 - Chronic kidney disease, stage 5 Comment: (9) Hyperlipidemia Code(s): E78.5 - HYPERLIPIDEMIA, UNSPECIFIED Status: Chronic Qualifiers: Hyperlipidemia type: unspecified Qualified Code(s): E78.5 - Hyperlipidemia , unspecified Comment: continue statin (10) Hypertension Code(s): I10 - ESSENTIAL (PRIMARY) HYPERTENSION Status: Chronic Qualifiers: Hypertension type: essential hypertension Qualified Code(s): I10 - Essential (primary) hypertension Comment: (11) Lupus (systemic lupus erythematosus) Code(s): M32.9 - SYSTEMIC LUPUS ERYTHEMATOSUS, UNSPECIFIED Status: Chronic Qualifiers: Systemic lupus erythematosus organ involvement: glomerular disease Comment: stable (12) Metabolic acidosis Code(s): E87.2 - ACIDOSIS Status: Chronic Comment: (13) Nephrolithiasis Status: Chronic (14) Noncompliance with medications Code(s): Z91.14 - PATIENT'S OTHER NONCOMPLIANCE WITH MEDICATION REGIMEN Status : Chronic (15) Obesity (BMI 30-39.9) Code(s): E66.9 - OBESITY, UNSPECIFIED Status: Chronic (16) Secondary hyperparathyroidism of renal origin Code(s): N25.81 - SECONDARY HYPERPARATHYROIDISM OF RENAL ORIGIN Status: Chronic - Plan cont current plan of care * will add plavix to optimize medical therapy, risk and benefit of therapy discussed * medication reviewed as below * symptomatic treatment * ambulate today * expecting discharge tomorrow. Review of Systems - Review of Systems ENT: negative: Ear Pain, Ear Discharge, Nose Pain, Nose Discharge, Nose Congestion, Mouth Pain, Mouth Swelling, Throat Pain, Throat Swelling, Other Respiratory: negative: Cough, Dry, Shortness of Breath, Hemoptysis, SOB with Excertion, Pleuritic Pain, Sputum, Wheezing Cardiovascular: negative: chest pain, palpitations, orthopnea, paroxysmal nocturnal dyspnea, edema, light headedness, other Gastrointestinal: negative: Nausea, Vomiting, Abdominal Pain, Diarrhea, Constipation, Melena, Hematochezia, Other Genitourinary: negative: Dysuria, Frequency, Incontinence, Hematuria, Retention , Other Musculoskeletal: negative: Neck Pain, Shoulder Pain, Arm Pain, Back Pain, Hand Pain, Leg Pain, Foot Pain, Other Skin: negative: Rash, Lesions, Arley, Bruising, Other - Medications/Allergies Allergies/Adverse Reactions: Allergies Allergy/AdvReac Type Severity Reaction Status Date / Time dextromethorphan HBr Allergy Verified 07/03/18 01:09 [From NyQuil] doxylamine succinate Allergy Verified 07/03/18 01:09 [From NyQuil] hydralazine Allergy Anaphylaxis Verified 07/03/18 01:09 pseudoephedrine HCl Allergy Verified 07/03/18 01:09 [From NyQuil] Medications: Current Medications Acetaminophen (Tylenol) 650 mg PO Q4H PRN PRN Reason: Headache/Fever/Mild Pain (1-3) Last Admin: 07/04/18 14:29 Dose: 650 mg Acetaminophen (Tylenol) 500 mg PO Q6H PRN PRN Reason: Mild Pain (1-3) Hydrocodone Bitart/Acetaminophen ([place] 5/325) 1 tab PO Q4H PRN PRN Reason: Moderate Pain (4-6) Artificial Tears (Tears Naturale) 2 drop EA EYE PRN PRN PRN Reason: Dry Eyes Aspirin (Ecotrin) 81 mg PO DAILY [facility] Last Admin: 07/06/18 09:22 Dose: 81 mg Bisacodyl (Dulcolax) 10 mg PO DAILYPRN PRN PRN Reason: Constipation Calcium Acetate (Phoslo) 667 mg PO TID[facility] Last Admin: 07/06/18 09:22 Dose: 667 mg Calcium Carbonate (Tums) 1,000 mg PO BID [facility] Last Admin: 07/06/18 09:22 Dose: 1,000 mg Carvedilol (Coreg) 25 mg PO BID [facility] Last Admin: 07/06/18 09:22 Dose: 25 mg Cholecalciferol (Vitamin D3) 2,000 units PO DAILY [facility] Last Admin: 07/06/18 09:24 Dose: 2,000 units Clonidine (Catapres) 0.3 mg PO HS [facility] Last Admin: 07/05/18 21:31 Dose: 0.3 mg Clopidogrel Bisulfate (Plavix) 75 mg PO DAILY [facility] Last Admin: 07/06/18 09:31 Dose: 75 mg Dextrose/Water (Dextrose 50%) 25 gm SLOW IVP PRN PRN PRN Reason: Hypoglycemia Furosemide (Lasix) 40 mg PO DAILY [facility] Last Admin: 07/06/18 09:23 Dose: 40 mg Glucagon (Glucagon) 1 mg IM PRN PRN PRN Reason: Hypoglycemia Guaifenesin (Robitussin Sf) 200 mg PO Q4H PRN PRN Reason: Cough Heparin Sodium (Porcine) (Heparin) 5,000 units SC BID [facility] Last Admin: 07/06/18 09:37 Dose: Not Given Dextrose/Water (D5w) 1,000 mls @ 0 mls/hr IV .Q0M PRN PRN Reason: Hypoglycemia Insulin Human Lispro (Humalog) 0 units SC .MILD SLIDING SCALE PRN PRN Reason: Mild Correctional Scale Insulin Human Lispro (Humalog) 0 units SC .BEDTIME SLIDING SC PRN PRN Reason: Bedtime Correctional Scale Isosorbide Mononitrate (Imdur) 60 mg PO DAILY [facility] Last Admin: 07/06/18 09:22 Dose: 60 mg Labetalol HCl (Normodyne) 10 mg SLOW IVP Q4H PRN PRN Reason: SBP Greater Than 170 Lactulose (Lactulose) 20 gm PO DAILYPRN PRN PRN Reason: Constipation Last Admin: 07/03/18 02:27 Dose: 20 gm Magnesium Oxide (Magnesium Oxide) 400 mg PO DAILY [facility] Last Admin: 07/06/18 09:22 Dose: 400 mg Mineral Oil/White Petrolatum (Eucerin Cream) 0 gm TOP BIDPRN PRN PRN Reason: Dry Skin Nifedipine (Procardia Xl) 90 mg PO DAILY [facility] Last Admin: 07/06/18 09:23 Dose: 90 mg Nitroglycerin (Nitrostat) 0.4 mg SL Q5MIN PRN PRN Reason: Chest Pain Last Admin: 07/05/18 08:33 Dose: 0.4 mg Ondansetron HCl (Zofran Odt) 4 mg PO Q6H PRN PRN Reason: Nausea/Vomiting Last Admin: 07/06/18 09:24 Dose: 4 mg Ondansetron HCl (Zofran) 4 mg IVP Q6H PRN PRN Reason: Nausea/Vomiting Last Admin: 07/03/18 12:57 Dose: 4 mg Senna/Docusate Sodium (Senokot S) 2 tab PO BIDPRN PRN PRN Reason: Constipation Simvastatin (Zocor) 40 mg PO HS [facility] Last Admin: 07/05/18 21:32 Dose: 40 mg Sodium Bicarbonate (Bicarbonate, Sodium) 650 mg PO BID [facility] Last Admin: 07/06/18 09:23 Dose: 650 mg Sodium Chloride ([place] Nasal [place] 0.65%) 0 ml EA NARE QIDPRN PRN PRN Reason: Nasal Congestion Sodium Chloride (Flush - Normal Saline) 10 ml IVF Q12HR [facility] Last Admin: 07/06/18 09:37 Dose: 10 ml Sodium Chloride (Flush - Normal Saline) 10 ml IVF PRN PRN PRN Reason: Saline Flush Throat Lozenges (Cepastat Lozenges) 1 rafael PO Q2H PRN PRN Reason: Sore Throat Zolpidem Tartrate (Ambien) 5 mg PO HSPRN PRN PRN Reason: Insomnia
[2018-07-06] MEDS: cloNIDine 0.3 MG TAB PO SCH (21:57)
[2018-07-06] MEDS: Simvastatin 40 MG TAB PO SCH (21:57)
[2018-07-07 08:13] LABS: #Eosinphils 0.2 thou/uL (0.0-0.7); #Monocytes 0.6 thou/uL (0.11-0.59); #Neutrophils 4.6 thou/uL (1.40-6.50); %Basophils 0.3 % (0.0-1.0); %Eosinophils 2.6 % (0.0-10.0); %Lymphocytes 26.8 % (21.0-51.0); %Monocytes 7.9 % (0.0-10.0); %Neutrophils 62.4 % (42.0-75.0); Hemoglobin 9.5 g/dL (12.0-16.0); Mean Corpuscular HGB CONC 32.8 g/dL (32.0-36.0); Mean Corpuscular Hemoglobin 31.8 pg (27.0-31.0); Mean Corpuscular Volume 96.9 fL (78.0-98.0); Mean Platelet Volume 7.4 fL (7.4-10.4); Platelet Count 207 thou/uL (130-400); RBC Distribution Width 11.7 % (11.5-14.5); Red Blood Cell (RBC) Count 2.98 mill/uL (4.20-5.40); White Blood Cell (WBC) Count 7.4 thou/uL (4.8-10.8)
[2018-07-07] MEDS: Heparin 5,000 UNITS/ML VIAL SC SCH ×2 (08:28→20:34)
[2018-07-07] MEDS: Calcium Carbonate 500 MG ChewTAB PO SCH ×2 (08:29→20:33)
[2018-07-07] MEDS: NIFEdipine XL 90 MG TAB PO SCH (08:30)
[2018-07-07] MEDS: Sodium Bicarbonate Tab 325 MG TAB PO SCH ×2 (08:30→20:33)
[2018-07-07] MEDS: Aspirin 81 mg Enteric Coated Tablet PO SCH (08:30)
[2018-07-07] MEDS: Carvedilol 25 MG TAB PO SCH ×2 (08:30→20:33)
[2018-07-07] MEDS: Furosemide 40 MG TAB PO SCH (08:30)
[2018-07-07] MEDS: Magnesium Oxide 400 MG TAB PO SCH (08:30)
[2018-07-07] MEDS: Calcium Acetate 667 MG CAP PO SCH ×3 (08:30→17:51)
[2018-07-07 08:40] LABS: Albumin 3.8 g/dL (3.5-5.0); Anion Gap 15 mmol/L (10-20); BUN (Urea Nitrogen) 66 mg/dL (9.8-20.1); BUN/Creatinine Ratio 11.96; Calc. Creatinine Clearance 17 mL/min (70-130); Calcium 8.9 mg/dL (7.8-10.44); Carbon Dioxide 18 mmol/L (22-29); Chloride 111 mmol/L (98-107); Estimated GFR-MDRD 8; Glucose 118 mg/dL (70-105); Phosphorus 4.8 mg/dL (2.3-4.7); Potassium 5.2 mmol/L (3.5-5.1); Sodium 139 mmol/L (136-145)
[2018-07-07 08:46] LABS: CKMB 0.4 ng/mL (0-6.6); Troponin I Less than 0.010 ng/mL (< 0.028)
--- NOTE | 2018-07-07 09:19 | PDOC.PN ---
- Subjective Encounter Start Date: 07/07/18 Encounter Start Time: 07:00 Patient seen and examined. No new complaints. No overnight events - Objective Resuscitation Status: Resuscitation Status FULL:Full Resuscitation MAR Reviewed: Yes Vital Signs & Weight: Vital Signs (12 hours) Temp Pulse Resp BP BP BP Pulse Ox 07/07/18 08:30 74 140/65 07/07/18 07:22 98.9 F 74 14 140/65 94 L 07/07/18 05:00 98.6 F 65 18 141/65 H 98 07/06/18 21:57 134/62 Weight Weight 207 lb 3.2 oz I&O: 07/06/18 07/07/18 07/08/18 06:59 06:59 06:59 Intake Total 720 300 Output Total 780 Balance -60 300 Result Diagrams: 07/07/18 08:03 07/07/18 08:03 Additional Labs: Accuchecks 07/07/18 07/06/18 07/06/18 05:08 20:30 16:18 POC Glucose 102 142 H 119 H 07/06/18 10:50 POC Glucose 110 EKG Reviewed by me: Yes (nsr) Phys Exam - Physical Examination Constitutional: NAD HEENT: PERRLA, moist MMs, sclera anicteric Neck: no JVD, supple Respiratory: no wheezing, no rales, no rhonchi Cardiovascular: RRR, no significant murmur, no rub Gastrointestinal: soft, non-tender, no distention, positive bowel sounds Musculoskeletal: no edema, pulses present AVF left arm Neurological: non-focal, normal sensation, moves all 4 limbs Lymphatic: no nodes Psychiatric: normal affect, A&O x 3 Skin: no rash, normal turgor Dx/Plan (1) Chest pain Code(s): R07.9 - CHEST PAIN, UNSPECIFIED Status: Resolved Comment: due to CAD, on medical therapy (2) Blurred vision Code(s): H53.8 - OTHER VISUAL DISTURBANCES Status: Resolved (3) Anemia of renal disease Code(s): D63.1 - ANEMIA IN CHRONIC KIDNEY DISEASE Status: Chronic (4) Anxiety and depression Code(s): F41.9 - ANXIETY DISORDER, UNSPECIFIED; F32.9 - MAJOR DEPRESSIVE DISORDER, SINGLE EPISODE, UNSPECIFIED Status: Chronic (5) CKD (chronic kidney disease) stage 5, GFR less than 15 ml/min Code(s): N18.5 - CHRONIC KIDNEY DISEASE, STAGE 5 Status: Chronic Comment: (6) Chronic stage c diastolic heart failure Code(s): I50.32 - CHRONIC DIASTOLIC (CONGESTIVE) HEART FAILURE Status: Chronic (7) Coronary artery disease Code(s): I25.10 - ATHSCL HEART DISEASE OF [place] CORONARY ARTERY W/O ANG PCTRS Status: Chronic Qualifiers: Coronary Disease-Associated Artery/Lesion type: [place] artery [place] vs. transplanted heart: [place] heart Associated angina: without angina Qualified Code(s): I25.10 - Atherosclerotic heart disease of [place] coronary artery without angina pectoris Comment: Medical mgmt (8) DM type 2 (diabetes mellitus, type 2) Status: Chronic Qualifiers: Diabetes mellitus terminal operator insulin use: without terminal operator use Diabetes mellitus complication status: with kidney complications Diabetes mellitus complication detail: with chronic kidney disease Chronic kidney disease stage : stage 5, not on chronic dialysis Qualified Code(s): E11.22 - Type 2 diabetes mellitus with diabetic chronic kidney disease; N18.5 - Chronic kidney disease, stage 5 Comment: (9) Hyperlipidemia Code(s): E78.5 - HYPERLIPIDEMIA, UNSPECIFIED Status: Chronic Qualifiers: Hyperlipidemia type: unspecified Qualified Code(s): E78.5 - Hyperlipidemia , unspecified Comment: continue statin (10) Hypertension Code(s): I10 - ESSENTIAL (PRIMARY) HYPERTENSION Status: Chronic Qualifiers: Hypertension type: essential hypertension Qualified Code(s): I10 - Essential (primary) hypertension Comment: (11) Lupus (systemic lupus erythematosus) Code(s): M32.9 - SYSTEMIC LUPUS ERYTHEMATOSUS, UNSPECIFIED Status: Chronic Qualifiers: Systemic lupus erythematosus organ involvement: glomerular disease Comment: stable (12) Metabolic acidosis Code(s): E87.2 - ACIDOSIS Status: Chronic Comment: (13) Nephrolithiasis Status: Chronic (14) Noncompliance with medications Code(s): Z91.14 - PATIENT'S OTHER NONCOMPLIANCE WITH MEDICATION REGIMEN Status : Chronic (15) Obesity (BMI 30-39.9) Code(s): E66.9 - OBESITY, UNSPECIFIED Status: Chronic (16) Secondary hyperparathyroidism of renal origin Code(s): N25.81 - SECONDARY HYPERPARATHYROIDISM OF RENAL ORIGIN Status: Chronic - Plan cont current plan of care * pt has recurrent chest pain, she has underlying cad, had cath in 2016, on medical therapy, has some component of anxiety as well but worsening of cad is possible, with cath, she is at risk for starting HD, even without that and on medical therapy her renal function are getting worse, she may need to start on HD and possible again cardiac cath or medication adjustment, without all she would be at high risk for recurrent admission * medication reviewed as below * symptomatic treatment * will add xanax prn * she does not want plavix as she gets epistaxis. Review of Systems - Review of Systems ENT: negative: Ear Pain, Ear Discharge, Nose Pain, Nose Discharge, Nose Congestion, Mouth Pain, Mouth Swelling, Throat Pain, Throat Swelling, Other Respiratory: negative: Cough, Dry, Shortness of Breath, Hemoptysis, SOB with Excertion, Pleuritic Pain, Sputum, Wheezing Cardiovascular: negative: chest pain, palpitations, orthopnea, paroxysmal nocturnal dyspnea, edema, light headedness, other Gastrointestinal: negative: Nausea, Vomiting, Abdominal Pain, Diarrhea, Constipation, Melena, Hematochezia, Other Genitourinary: negative: Dysuria, Frequency, Incontinence, Hematuria, Retention , Other Musculoskeletal: negative: Neck Pain, Shoulder Pain, Arm Pain, Back Pain, Hand Pain, Leg Pain, Foot Pain, Other Skin: negative: Rash, Lesions, Arley, Bruising, Other - Medications/Allergies Allergies/Adverse Reactions: Allergies Allergy/AdvReac Type Severity Reaction Status Date / Time dextromethorphan HBr Allergy Verified 07/03/18 01:09 [From NyQuil] doxylamine succinate Allergy Verified 07/03/18 01:09 [From NyQuil] hydralazine Allergy Anaphylaxis Verified 07/03/18 01:09 pseudoephedrine HCl Allergy Verified 07/03/18 01:09 [From NyQuil] Medications: Current Medications Acetaminophen (Tylenol) 650 mg PO Q4H PRN PRN Reason: Headache/Fever/Mild Pain (1-3) Last Admin: 07/04/18 14:29 Dose: 650 mg Acetaminophen (Tylenol) 500 mg PO Q6H PRN PRN Reason: Mild Pain (1-3) Hydrocodone Bitart/Acetaminophen ([address]/325) 1 tab PO Q4H PRN PRN Reason: Moderate Pain (4-6) Artificial Tears (Tears Naturale) 2 drop EA EYE PRN PRN PRN Reason: Dry Eyes Aspirin (Ecotrin) 81 mg PO DAILY [facility] Last Admin: 07/07/18 08:30 Dose: 81 mg Bisacodyl (Dulcolax) 10 mg PO DAILYPRN PRN PRN Reason: Constipation Last Admin: 07/07/18 08:41 Dose: 10 mg Calcium Acetate (Phoslo) 667 mg PO TID-WM [facility] Last Admin: 07/07/18 08:30 Dose: 667 mg Calcium Carbonate (Tums) 1,000 mg PO BID [facility] Last Admin: 07/07/18 08:29 Dose: 1,000 mg Carvedilol (Coreg) 25 mg PO BID [facility] Last Admin: 07/07/18 08:30 Dose: 25 mg Cholecalciferol (Vitamin D3) 2,000 units PO DAILY [facility] Last Admin: 07/07/18 08:29 Dose: 2,000 units Clonidine (Catapres) 0.3 mg PO HS [facility] Last Admin: 07/06/18 21:57 Dose: 0.3 mg Dextrose/Water (Dextrose 50%) 25 gm SLOW IVP PRN PRN PRN Reason: Hypoglycemia Furosemide (Lasix) 40 mg PO DAILY [facility] Last Admin: 07/07/18 08:30 Dose: 40 mg Glucagon (Glucagon) 1 mg IM PRN PRN PRN Reason: Hypoglycemia Guaifenesin (Robitussin Sf) 200 mg PO Q4H PRN PRN Reason: Cough Heparin Sodium (Porcine) (Heparin) 5,000 units SC BID [facility] Last Admin: 07/07/18 08:28 Dose: 5,000 units Dextrose/Water (D5w) 1,000 mls @ 0 mls/hr IV .Q0M PRN PRN Reason: Hypoglycemia Insulin Human Lispro (Humalog) 0 units SC .MILD SLIDING SCALE PRN PRN Reason: Mild Correctional Scale Insulin Human Lispro (Humalog) 0 units SC .BEDTIME SLIDING SC PRN PRN Reason: Bedtime Correctional Scale Isosorbide Mononitrate (Imdur) 60 mg PO DAILY [facility] Last Admin: 07/07/18 08:30 Dose: 60 mg Labetalol HCl (Normodyne) 10 mg SLOW IVP Q4H PRN PRN Reason: SBP Greater Than 170 Lactulose (Lactulose) 20 gm PO DAILYPRN PRN PRN Reason: Constipation Last Admin: 07/03/18 02:27 Dose: 20 gm Magnesium Oxide (Magnesium Oxide) 400 mg PO DAILY [facility] Last Admin: 07/07/18 08:30 Dose: 400 mg Mineral Oil/White Petrolatum (Eucerin Cream) 0 gm TOP BIDPRN PRN PRN Reason: Dry Skin Nifedipine (Procardia Xl) 90 mg PO DAILY [facility] Last Admin: 07/07/18 08:30 Dose: 90 mg Nitroglycerin (Nitrostat) 0.4 mg SL Q5MIN PRN PRN Reason: Chest Pain Last Admin: 07/05/18 08:33 Dose: 0.4 mg Ondansetron HCl (Zofran Odt) 4 mg PO Q6H PRN PRN Reason: Nausea/Vomiting Last Admin: 07/06/18 18:00 Dose: 4 mg Ondansetron HCl (Zofran) 4 mg IVP Q6H PRN PRN Reason: Nausea/Vomiting Last Admin: 07/03/18 12:57 Dose: 4 mg Senna/Docusate Sodium (Senokot S) 2 tab PO BIDPRN PRN PRN Reason: Constipation Simvastatin (Zocor) 40 mg PO HS [facility] Last Admin: 07/06/18 21:57 Dose: 40 mg Sodium Bicarbonate (Bicarbonate, Sodium) 650 mg PO BID [facility] Last Admin: 07/07/18 08:30 Dose: 650 mg Sodium Chloride ([place] Nasal [place] 0.65%) 0 ml EA NARE QIDPRN PRN PRN Reason: Nasal Congestion Sodium Chloride (Flush - Normal Saline) 10 ml IVF Q12HR [facility] Last Admin: 07/07/18 08:29 Dose: 10 ml Sodium Chloride (Flush - Normal Saline) 10 ml IVF PRN PRN PRN Reason: Saline Flush Throat Lozenges (Cepastat Lozenges) 1 rafael PO Q2H PRN PRN Reason: Sore Throat Zolpidem Tartrate (Ambien) 5 mg PO HSPRN PRN PRN Reason: Insomnia
--- NOTE | 2018-07-07 11:44 | EKG ---
Test Reason : STAT Blood Pressure : / mmHG Vent. Rate : 084 BPM Atrial Rate : 084 BPM P-R Int : 156 ms QRS Dur : 092 ms QT Int : 390 ms P-R-T Axes : 047 018 058 degrees QTc Int : 460 ms Normal sinus rhythm Normal ECG Confirmed by CARLOS ESPINAL ([id number]) on 07/07/2018 11:44:20 AM Referred By: MARLEY Confirmed By:CARLOS ESPINAL
--- NOTE | 2018-07-07 11:59 | EKG ---
Test Reason : STAT Blood Pressure : / mmHG Vent. Rate : 079 BPM Atrial Rate : 079 BPM P-R Int : 140 ms QRS Dur : 098 ms QT Int : 406 ms P-R-T Axes : -63 -19 073 degrees QTc Int : 465 ms Unusual P axis, possible ectopic atrial rhythm Low voltage QRS Inferior infarct , age undetermined Abnormal ECG Confirmed by CARLOS ESPINAL ([id number]) on 07/07/2018 11:58:45 AM Referred By: TA BARTHOLOMEW Confirmed By:CARLOS ESPINAL
--- NOTE | 2018-07-07 12:28 | PDOC.CTH ---
Cardiology Progress Note - Subjective She is doing well. her BP is very well controlled on current regimen. She is walking around with PT without issues, no chest pain. - Objective Vital Signs Temp Pulse Resp BP BP BP Pulse Ox 07/07/18 08:30 74 140/65 07/07/18 07:22 98.9 F 74 14 140/65 94 L 07/07/18 05:00 98.6 F 65 18 141/65 H 98 Weight 207 lb 3.2 oz 07/06/18 07/07/18 07/08/18 06:59 06:59 06:59 Intake Total 720 300 Output Total 780 Balance -60 300 - Physical Examination General/Neuro: alert & oriented x3, NAD Neck: no JVD present Lungs: CTA, unlabored respirations Heart: RRR Abdomen: NT/ND Extremities: other: (no edema.) - Telemetry Telemetry Rhythm: NSR - Labs Result Diagrams: 07/07/18 08:03 07/07/18 08:03 Troponin/CKMB CK-MB (CK-2) 0.4 ng/mL (0-6.6) 07/07/18 08:03 Troponin I Less than 0.010 ng/mL (< 0.028) 07/07/18 08:03 - Assessment/Plan 1. HTN 2. CAD, diffuse distal LAD disease not a candidate for revascularization. 3. CKD Stage 5 4. Angina PLAN: - BP much better controlled now. - May discharge home from [facility] at any time on current medical regimen. - If she notices any lightheadedness when standing up or her BP starts to come too low she will cut back on the Imdur cutting the pill in half if needed. - Follow up in the office in 1 month.
[2018-07-07] MEDS: cloNIDine 0.3 MG TAB PO SCH (20:33)
[2018-07-07] MEDS: Simvastatin 40 MG TAB PO SCH (20:33)
[2018-07-08 05:48] LABS: Albumin 3.5 g/dL (3.5-5.0); Anion Gap 13 mmol/L (10-20); BUN (Urea Nitrogen) 69 mg/dL (9.8-20.1); BUN/Creatinine Ratio 12.92; Calc. Creatinine Clearance 18 mL/min (70-130); Calcium 8.5 mg/dL (7.8-10.44); Carbon Dioxide 19 mmol/L (22-29); Chloride 107 mmol/L (98-107); Estimated GFR-MDRD 8; Glucose 110 mg/dL (70-105); Phosphorus 4.6 mg/dL (2.3-4.7); Potassium 5.1 mmol/L (3.5-5.1); Sodium 134 mmol/L (136-145)
[2018-07-08 06:25] LABS: Hemoglobin 8.5 g/dL (12.0-16.0); Hypochromia SLIGHT = 6-15 cells (100X) (0-5/hpf); Lymphocytes 36 % (21-51); MDiff Complete? YES; Mean Corpuscular HGB CONC 32.8 g/dL (32.0-36.0); Mean Corpuscular Hemoglobin 31.6 pg (27.0-31.0); Mean Corpuscular Volume 96.2 fL (78.0-98.0); Mean Platelet Volume 7.4 fL (7.4-10.4); Monocytes 6 % (0-10); Neutrophil 58 % (42-75); PLT Morphology Comment Appears Adequate; Platelet Count 201 thou/uL (130-400); RBC Distribution Width 11.8 % (11.5-14.5); Red Blood Cell (RBC) Count 2.68 mill/uL (4.20-5.40); White Blood Cell (WBC) Count 7.4 thou/uL (4.8-10.8)
[2018-07-08] MEDS: Heparin 5,000 UNITS/ML VIAL SC SCH ×2 (08:21→20:35)
[2018-07-08] MEDS: Calcium Carbonate 500 MG ChewTAB PO SCH ×2 (08:21→20:35)
[2018-07-08] MEDS: Magnesium Oxide 400 MG TAB PO SCH (08:22)
[2018-07-08] MEDS: NIFEdipine XL 90 MG TAB PO SCH (08:23)
[2018-07-08] MEDS: Calcium Acetate 667 MG CAP PO SCH ×3 (08:23→17:53)
[2018-07-08] MEDS: Aspirin 81 mg Enteric Coated Tablet PO SCH (08:23)
[2018-07-08] MEDS: Furosemide 40 MG TAB PO SCH (08:23)
[2018-07-08] MEDS: Sodium Bicarbonate Tab 325 MG TAB PO SCH ×2 (08:23→20:35)
[2018-07-08] MEDS: Carvedilol 25 MG TAB PO SCH ×2 (08:23→20:35)
--- NOTE | 2018-07-08 09:19 | PDOC.PN ---
- Subjective Encounter Start Date: 07/08/18 Encounter Start Time: 07:00 Patient seen and examined. No new complaints. No overnight events - Objective Resuscitation Status: Resuscitation Status FULL:Full Resuscitation MAR Reviewed: Yes Vital Signs & Weight: Vital Signs (12 hours) Temp Pulse Resp BP BP Pulse Ox 07/08/18 08:23 66 147/70 H 07/08/18 07:20 98.3 F 66 18 147/70 H 96 07/08/18 04:00 98.4 F 70 16 128/60 97 Weight Weight 210 lb 9.6 oz I&O: 07/07/18 07/08/18 07/09/18 06:59 06:59 06:59 Intake Total 720 1518 Output Total 780 600 Balance -60 918 Result Diagrams: 07/08/18 05:21 07/08/18 05:21 Additional Labs: Accuchecks 07/08/18 07/07/18 07/07/18 05:53 20:37 17:01 POC Glucose 108 136 H 87 07/07/18 11:03 POC Glucose 120 H EKG Reviewed by me: Yes Phys Exam - Physical Examination Constitutional: NAD HEENT: PERRLA, moist MMs, sclera anicteric Neck: no JVD, supple Respiratory: no wheezing, no rales, no rhonchi Cardiovascular: RRR, no significant murmur, no rub Gastrointestinal: soft, non-tender, no distention, positive bowel sounds Musculoskeletal: no edema, pulses present avf in left arm Neurological: non-focal, normal sensation, moves all 4 limbs Psychiatric: normal affect, A&O x 3 Skin: no rash, normal turgor Dx/Plan (1) Chest pain Code(s): R07.9 - CHEST PAIN, UNSPECIFIED Status: Resolved Comment: due to CAD, on medical therapy (2) Blurred vision Code(s): H53.8 - OTHER VISUAL DISTURBANCES Status: Resolved (3) Anemia of renal disease Code(s): D63.1 - ANEMIA IN CHRONIC KIDNEY DISEASE Status: Chronic (4) Anxiety and depression Code(s): F41.9 - ANXIETY DISORDER, UNSPECIFIED; F32.9 - MAJOR DEPRESSIVE DISORDER, SINGLE EPISODE, UNSPECIFIED Status: Chronic (5) CKD (chronic kidney disease) stage 5, GFR less than 15 ml/min Code(s): N18.5 - CHRONIC KIDNEY DISEASE, STAGE 5 Status: Chronic Comment: (6) Chronic stage c diastolic heart failure Code(s): I50.32 - CHRONIC DIASTOLIC (CONGESTIVE) HEART FAILURE Status: Chronic (7) Coronary artery disease Code(s): I25.10 - ATHSCL HEART DISEASE OF [place] CORONARY ARTERY W/O ANG PCTRS Status: Chronic Qualifiers: Coronary Disease-Associated Artery/Lesion type: [place] artery [place] vs. transplanted heart: [place] heart Associated angina: without angina Qualified Code(s): I25.10 - Atherosclerotic heart disease of [place] coronary artery without angina pectoris Comment: Medical mgmt (8) DM type 2 (diabetes mellitus, type 2) Status: Chronic Qualifiers: Diabetes mellitus termite technician insulin use: without termite technician use Diabetes mellitus complication status: with kidney complications Diabetes mellitus complication detail: with chronic kidney disease Chronic kidney disease stage : stage 5, not on chronic dialysis Qualified Code(s): E11.22 - Type 2 diabetes mellitus with diabetic chronic kidney disease; N18.5 - Chronic kidney disease, stage 5 Comment: (9) Hyperlipidemia Code(s): E78.5 - HYPERLIPIDEMIA, UNSPECIFIED Status: Chronic Qualifiers: Hyperlipidemia type: unspecified Qualified Code(s): E78.5 - Hyperlipidemia , unspecified Comment: continue statin (10) Hypertension Code(s): I10 - ESSENTIAL (PRIMARY) HYPERTENSION Status: Chronic Qualifiers: Hypertension type: essential hypertension Qualified Code(s): I10 - Essential (primary) hypertension Comment: (11) Lupus (systemic lupus erythematosus) Code(s): M32.9 - SYSTEMIC LUPUS ERYTHEMATOSUS, UNSPECIFIED Status: Chronic Qualifiers: Systemic lupus erythematosus organ involvement: glomerular disease Comment: stable (12) Metabolic acidosis Code(s): E87.2 - ACIDOSIS Status: Chronic Comment: (13) Nephrolithiasis Status: Chronic (14) Noncompliance with medications Code(s): Z91.14 - PATIENT'S OTHER NONCOMPLIANCE WITH MEDICATION REGIMEN Status : Chronic (15) Obesity (BMI 30-39.9) Code(s): E66.9 - OBESITY, UNSPECIFIED Status: Chronic (16) Secondary hyperparathyroidism of renal origin Code(s): N25.81 - SECONDARY HYPERPARATHYROIDISM OF RENAL ORIGIN Status: Chronic - Plan cont current plan of care * she is now experiencing uremia symptoms, nephrology to decide about HD * if no plan for HD this admission, then will consider discharge later today * medication reviewed as below * symptomatic treatment. Review of Systems - Review of Systems Eyes: negative: Pain, Vision Change, Conjunctivae Inflammation, Eyelid Inflammation, Redness, Other ENT: negative: Ear Pain, Ear Discharge, Nose Pain, Nose Discharge, Nose Congestion, Mouth Pain, Mouth Swelling, Throat Pain, Throat Swelling, Other Respiratory: negative: Cough, Dry, Shortness of Breath, Hemoptysis, SOB with Excertion, Pleuritic Pain, Sputum, Wheezing Cardiovascular: negative: chest pain, palpitations, orthopnea, paroxysmal nocturnal dyspnea, edema, light headedness, other Gastrointestinal: negative: Nausea, Vomiting, Abdominal Pain, Diarrhea, Constipation, Melena, Hematochezia, Other Genitourinary: negative: Dysuria, Frequency, Incontinence, Hematuria, Retention , Other Musculoskeletal: negative: Neck Pain, Shoulder Pain, Arm Pain, Back Pain, Hand Pain, Leg Pain, Foot Pain, Other Skin: negative: Rash, Lesions, Arley, Bruising, Other - Medications/Allergies Allergies/Adverse Reactions: Allergies Allergy/AdvReac Type Severity Reaction Status Date / Time dextromethorphan HBr Allergy Verified 07/03/18 01:09 [From NyQuil] doxylamine succinate Allergy Verified 07/03/18 01:09 [From NyQuil] hydralazine Allergy Anaphylaxis Verified 07/03/18 01:09 pseudoephedrine HCl Allergy Verified 07/03/18 01:09 [From NyQuil] Medications: Current Medications Acetaminophen (Tylenol) 650 mg PO Q4H PRN PRN Reason: Headache/Fever/Mild Pain (1-3) Last Admin: 07/04/18 14:29 Dose: 650 mg Acetaminophen (Tylenol) 500 mg PO Q6H PRN PRN Reason: Mild Pain (1-3) Hydrocodone Bitart/Acetaminophen ([place] 5/325) 1 tab PO Q4H PRN PRN Reason: Moderate Pain (4-6) Artificial Tears (Tears Naturale) 2 drop EA EYE PRN PRN PRN Reason: Dry Eyes Aspirin (Ecotrin) 81 mg PO DAILY [facility] Last Admin: 07/08/18 08:23 Dose: 81 mg Bisacodyl (Dulcolax) 10 mg PO DAILYPRN PRN PRN Reason: Constipation Last Admin: 07/07/18 08:41 Dose: 10 mg Calcium Acetate (Phoslo) 667 mg PO TID-WM [facility] Last Admin: 07/08/18 08:23 Dose: 667 mg Calcium Carbonate (Tums) 1,000 mg PO BID [facility] Last Admin: 07/08/18 08:21 Dose: 1,000 mg Carvedilol (Coreg) 25 mg PO BID [facility] Last Admin: 07/08/18 08:23 Dose: 25 mg Cholecalciferol (Vitamin D3) 2,000 units PO DAILY [facility] Last Admin: 07/08/18 08:21 Dose: 2,000 units Clonidine (Catapres) 0.3 mg PO HS [facility] Last Admin: 07/07/18 20:33 Dose: 0.3 mg Dextrose/Water (Dextrose 50%) 25 gm SLOW IVP PRN PRN PRN Reason: Hypoglycemia Furosemide (Lasix) 40 mg PO DAILY [facility] Last Admin: 07/08/18 08:23 Dose: 40 mg Glucagon (Glucagon) 1 mg IM PRN PRN PRN Reason: Hypoglycemia Guaifenesin (Robitussin Sf) 200 mg PO Q4H PRN PRN Reason: Cough Heparin Sodium (Porcine) (Heparin) 5,000 units SC BID [facility] Last Admin: 07/08/18 08:21 Dose: 5,000 units Dextrose/Water (D5w) 1,000 mls @ 0 mls/hr IV .Q0M PRN PRN Reason: Hypoglycemia Insulin Human Lispro (Humalog) 0 units SC .MILD SLIDING SCALE PRN PRN Reason: Mild Correctional Scale Insulin Human Lispro (Humalog) 0 units SC .BEDTIME SLIDING SC PRN PRN Reason: Bedtime Correctional Scale Isosorbide Mononitrate (Imdur) 60 mg PO DAILY [facility] Last Admin: 07/08/18 08:23 Dose: 60 mg Labetalol HCl (Normodyne) 10 mg SLOW IVP Q4H PRN PRN Reason: SBP Greater Than 170 Lactulose (Lactulose) 20 gm PO DAILYPRN PRN PRN Reason: Constipation Last Admin: 07/07/18 17:50 Dose: 20 gm Magnesium Oxide (Magnesium Oxide) 400 mg PO DAILY [facility] Last Admin: 07/08/18 08:22 Dose: 400 mg Mineral Oil/White Petrolatum (Eucerin Cream) 0 gm TOP BIDPRN PRN PRN Reason: Dry Skin Nifedipine (Procardia Xl) 90 mg PO DAILY [facility] Last Admin: 07/08/18 08:23 Dose: 90 mg Nitroglycerin (Nitrostat) 0.4 mg SL Q5MIN PRN PRN Reason: Chest Pain Last Admin: 07/05/18 08:33 Dose: 0.4 mg Ondansetron HCl (Zofran Odt) 4 mg PO Q6H PRN PRN Reason: Nausea/Vomiting Last Admin: 07/06/18 18:00 Dose: 4 mg Ondansetron HCl (Zofran) 4 mg IVP Q6H PRN PRN Reason: Nausea/Vomiting Last Admin: 07/03/18 12:57 Dose: 4 mg Senna/Docusate Sodium (Senokot S) 2 tab PO BIDPRN PRN PRN Reason: Constipation Simvastatin (Zocor) 40 mg PO HS [facility] Last Admin: 07/07/18 20:33 Dose: 40 mg Sodium Bicarbonate (Bicarbonate, Sodium) 650 mg PO BID [facility] Last Admin: 07/08/18 08:23 Dose: 650 mg Sodium Chloride ([place] Nasal [place] 0.65%) 0 ml EA NARE QIDPRN PRN PRN Reason: Nasal Congestion Sodium Chloride (Flush - Normal Saline) 10 ml IVF Q12HR [facility] Last Admin: 07/08/18 08:34 Dose: Not Given Sodium Chloride (Flush - Normal Saline) 10 ml IVF PRN PRN PRN Reason: Saline Flush Throat Lozenges (Cepastat Lozenges) 1 rafael PO Q2H PRN PRN Reason: Sore Throat Zolpidem Tartrate (Ambien) 5 mg PO HSPRN PRN PRN Reason: Insomnia
[2018-07-08 15:38] LABS: Bacteria/HPF None Seen HPF (None Seen); Bilirubin Negative (Negative); Blood, Urine Trace (Negative); Clarity CLOUDY (Clear); Glucose, Urine (Dipstick) Negative (Negative); Hyaline Casts/LPF 0-3 HYALINE CAST LPF (0-3 Hyaline); Leukocyte Large (Negative); Nitrite Negative (Negative); Pathc Cast-AUWi Flag 0.14 (0-2.49); Protein, Urine (Dipstick) Trace mg/dL (Neg-Trace); Specific Gravity, Urine 1.006 (1.002-1.036); Squamous Epithelial None Seen HPF (0-3); Urobilinogen 0.2 mg/dL (0.2-1.0); WBC/HPF 21-50 HPF (0-3)
[2018-07-08] MEDS: cloNIDine 0.3 MG TAB PO SCH (20:35)
[2018-07-08] MEDS: Simvastatin 40 MG TAB PO SCH (20:35)
[2018-07-09 06:08] LABS: Albumin 3.5 g/dL (3.5-5.0); Anion Gap 14 mmol/L (10-20); BUN (Urea Nitrogen) 71 mg/dL (9.8-20.1); BUN/Creatinine Ratio 13.27; Calc. Creatinine Clearance 17 mL/min (70-130); Calcium 8.5 mg/dL (7.8-10.44); Carbon Dioxide 21 mmol/L (22-29); Chloride 107 mmol/L (98-107); Estimated GFR-MDRD 8; Glucose 97 mg/dL (70-105); Phosphorus 5.3 mg/dL (2.3-4.7); Potassium 5.7 mmol/L (3.5-5.1); Sodium 136 mmol/L (136-145)
[2018-07-09] MEDS: Furosemide 40 MG TAB PO SCH (08:14)
[2018-07-09] MEDS: Calcium Acetate 667 MG CAP PO SCH ×4 (08:14→17:49)
[2018-07-09] MEDS: Sodium Bicarbonate Tab 325 MG TAB PO SCH ×2 (08:14→19:59)
[2018-07-09] MEDS: Aspirin 81 mg Enteric Coated Tablet PO SCH (08:14)
[2018-07-09] MEDS: NIFEdipine XL 90 MG TAB PO SCH ×2 (08:14→08:21)
[2018-07-09] MEDS: Calcium Carbonate 500 MG ChewTAB PO SCH ×2 (08:14→19:58)
[2018-07-09] MEDS: Heparin 5,000 UNITS/ML VIAL SC SCH ×2 (08:15→19:59)
[2018-07-09] MEDS: Magnesium Oxide 400 MG TAB PO SCH (08:15)
[2018-07-09] MEDS: Carvedilol 25 MG TAB PO SCH ×2 (08:15→19:59)
--- NOTE | 2018-07-09 09:34 | PDOC.PN ---
- Subjective Encounter Start Date: 07/09/18 Encounter Start Time: 07:00 Patient seen and examined. No new complaints. No overnight events - Objective Resuscitation Status: Resuscitation Status FULL:Full Resuscitation MAR Reviewed: Yes Vital Signs & Weight: Vital Signs (12 hours) Temp Pulse Resp BP BP Pulse Ox 07/09/18 07:25 98.4 F 66 16 147/67 H 99 07/09/18 04:00 98.3 F 63 18 119/59 L 97 Weight Weight 208 lb 11.2 oz I&O: 07/08/18 07/09/18 07/10/18 06:59 06:59 06:59 Intake Total 1518 890 Output Total 600 500 Balance 918 390 Result Diagrams: 07/08/18 05:21 07/09/18 05:18 Additional Labs: Accuchecks 07/09/18 07/08/18 07/08/18 05:44 20:28 16:51 POC Glucose 122 H 132 H 146 H 07/08/18 11:08 POC Glucose 138 H EKG Reviewed by me: Yes (nsr) Phys Exam - Physical Examination Constitutional: NAD HEENT: PERRLA, moist MMs, sclera anicteric Neck: no JVD, supple Respiratory: no wheezing, no rales, no rhonchi Cardiovascular: RRR, no significant murmur, no rub Gastrointestinal: soft, non-tender, no distention, positive bowel sounds Musculoskeletal: no edema, pulses present Neurological: non-focal, normal sensation, moves all 4 limbs Psychiatric: normal affect, A&O x 3 Skin: no rash, normal turgor Dx/Plan (1) Chest pain Code(s): R07.9 - CHEST PAIN, UNSPECIFIED Status: Resolved Comment: due to CAD, on medical therapy (2) Blurred vision Code(s): H53.8 - OTHER VISUAL DISTURBANCES Status: Resolved (3) Anemia of renal disease Code(s): D63.1 - ANEMIA IN CHRONIC KIDNEY DISEASE Status: Chronic (4) Anxiety and depression Code(s): F41.9 - ANXIETY DISORDER, UNSPECIFIED; F32.9 - MAJOR DEPRESSIVE DISORDER, SINGLE EPISODE, UNSPECIFIED Status: Chronic (5) CKD (chronic kidney disease) stage 5, GFR less than 15 ml/min Code(s): N18.5 - CHRONIC KIDNEY DISEASE, STAGE 5 Status: Chronic Comment: (6) Chronic stage c diastolic heart failure Code(s): I50.32 - CHRONIC DIASTOLIC (CONGESTIVE) HEART FAILURE Status: Chronic (7) Coronary artery disease Code(s): I25.10 - ATHSCL HEART DISEASE OF [place] CORONARY ARTERY W/O ANG PCTRS Status: Chronic Qualifiers: Coronary Disease-Associated Artery/Lesion type: platinum artery [place] vs. transplanted heart: platinum heart Associated angina: without angina Qualified Code(s): I25.10 - Atherosclerotic heart disease of [place] coronary artery without angina pectoris Comment: Medical mgmt (8) DM type 2 (diabetes mellitus, type 2) Status: Chronic Qualifiers: Diabetes mellitus longterm insulin use: without longterm use Diabetes mellitus complication status: with kidney complications Diabetes mellitus complication detail: with chronic kidney disease Chronic kidney disease stage : stage 5, not on chronic dialysis Qualified Code(s): E11.22 - Type 2 diabetes mellitus with diabetic chronic kidney disease; N18.5 - Chronic kidney disease, stage 5 Comment: (9) Hyperlipidemia Code(s): E78.5 - HYPERLIPIDEMIA, UNSPECIFIED Status: Chronic Qualifiers: Hyperlipidemia type: unspecified Qualified Code(s): E78.5 - Hyperlipidemia , unspecified Comment: continue statin (10) Hypertension Code(s): I10 - ESSENTIAL (PRIMARY) HYPERTENSION Status: Chronic Qualifiers: Hypertension type: essential hypertension Qualified Code(s): I10 - Essential (primary) hypertension Comment: (11) Lupus (systemic lupus erythematosus) Code(s): M32.9 - SYSTEMIC LUPUS ERYTHEMATOSUS, UNSPECIFIED Status: Chronic Qualifiers: Systemic lupus erythematosus organ involvement: glomerular disease Comment: stable (12) Metabolic acidosis Code(s): E87.2 - ACIDOSIS Status: Chronic Comment: (13) Nephrolithiasis Status: Chronic (14) Noncompliance with medications Code(s): Z91.14 - PATIENT'S OTHER NONCOMPLIANCE WITH MEDICATION REGIMEN Status : Chronic (15) Obesity (BMI 30-39.9) Code(s): E66.9 - OBESITY, UNSPECIFIED Status: Chronic (16) Secondary hyperparathyroidism of renal origin Code(s): N25.81 - SECONDARY HYPERPARATHYROIDISM OF RENAL ORIGIN Status: Chronic (17) Hyperkalemia Code(s): E87.5 - HYPERKALEMIA Status: Acute (18) UTI (urinary tract infection) Status: Acute - Plan cont current plan of care, continue antibiotics * start cipro 250 mg po bid for uti * give kayexalate for hyperkalemia * pt has uremia symptoms, she needs HD, will defer that decision to nephrology, * without HD, she will be at high risk for readmission * medication reviewed as below * symptomatic treatment. Review of Systems - Review of Systems ENT: negative: Ear Pain, Ear Discharge, Nose Pain, Nose Discharge, Nose Congestion, Mouth Pain, Mouth Swelling, Throat Pain, Throat Swelling, Other Respiratory: negative: Cough, Dry, Shortness of Breath, Hemoptysis, SOB with Excertion, Pleuritic Pain, Sputum, Wheezing Cardiovascular: negative: chest pain, palpitations, orthopnea, paroxysmal nocturnal dyspnea, edema, light headedness, other Gastrointestinal: negative: Nausea, Vomiting, Abdominal Pain, Diarrhea, Constipation, Melena, Hematochezia, Other Genitourinary: negative: Dysuria, Frequency, Incontinence, Hematuria, Retention , Other Musculoskeletal: negative: Neck Pain, Shoulder Pain, Arm Pain, Back Pain, Hand Pain, Leg Pain, Foot Pain, Other Skin: negative: Rash, Lesions, [place], Bruising, Other - Medications/Allergies Allergies/Adverse Reactions: Allergies Allergy/AdvReac Type Severity Reaction Status Date / Time dextromethorphan HBr Allergy Verified 07/03/18 01:09 [From NyQuil] doxylamine succinate Allergy Verified 07/03/18 01:09 [From NyQuil] hydralazine Allergy Anaphylaxis Verified 07/03/18 01:09 pseudoephedrine HCl Allergy Verified 07/03/18 01:09 [From NyQuil] Medications: Current Medications Acetaminophen (Tylenol) 650 mg PO Q4H PRN PRN Reason: Headache/Fever/Mild Pain (1-3) Last Admin: 07/04/18 14:29 Dose: 650 mg Acetaminophen (Tylenol) 500 mg PO Q6H PRN PRN Reason: Mild Pain (1-3) Hydrocodone Bitart/Acetaminophen ([place] 5/325) 1 tab PO Q4H PRN PRN Reason: Moderate Pain (4-6) Artificial Tears (Tears Naturale) 2 drop EA EYE PRN PRN PRN Reason: Dry Eyes Aspirin (Ecotrin) 81 mg PO DAILY LIAM Last Admin: 07/09/18 08:14 Dose: 81 mg Bisacodyl (Dulcolax) 10 mg PO DAILYPRN PRN PRN Reason: Constipation Last Admin: 07/07/18 08:41 Dose: 10 mg Calcium Acetate (Phoslo) 667 mg PO TID-[facility] Last Admin: 07/09/18 08:14 Dose: 667 mg Calcium Carbonate (Tums) 1,000 mg PO BID [facility] Last Admin: 07/09/18 08:14 Dose: 1,000 mg Carvedilol (Coreg) 25 mg PO BID [facility] Last Admin: 07/09/18 08:15 Dose: 25 mg Cholecalciferol (Vitamin D3) 2,000 units PO DAILY [facility] Last Admin: 07/09/18 08:13 Dose: 2,000 units Ciprofloxacin (Cipro) 250 mg PO BID@0600,2000 [facility] Clonidine (Catapres) 0.3 mg PO HS [facility] Last Admin: 07/08/18 20:35 Dose: 0.3 mg Dextrose/Water (Dextrose 50%) 25 gm SLOW IVP PRN PRN PRN Reason: Hypoglycemia Furosemide (Lasix) 40 mg PO DAILY [facility] Last Admin: 07/09/18 08:14 Dose: 40 mg Glucagon (Glucagon) 1 mg IM PRN PRN PRN Reason: Hypoglycemia Guaifenesin (Robitussin Sf) 200 mg PO Q4H PRN PRN Reason: Cough Heparin Sodium (Porcine) (Heparin) 5,000 units SC BID [facility] Last Admin: 07/09/18 08:15 Dose: 5,000 units Dextrose/Water (D5w) 1,000 mls @ 0 mls/hr IV .Q0M PRN PRN Reason: Hypoglycemia Insulin Human Lispro (Humalog) 0 units SC .MILD SLIDING SCALE PRN PRN Reason: Mild Correctional Scale Insulin Human Lispro (Humalog) 0 units SC .BEDTIME SLIDING SC PRN PRN Reason: Bedtime Correctional Scale Isosorbide Mononitrate (Imdur) 60 mg PO DAILY [facility] Last Admin: 07/09/18 08:15 Dose: 60 mg Labetalol HCl (Normodyne) 10 mg SLOW IVP Q4H PRN PRN Reason: SBP Greater Than 170 Lactulose (Lactulose) 20 gm PO DAILYPRN PRN PRN Reason: Constipation Last Admin: 07/07/18 17:50 Dose: 20 gm Magnesium Oxide (Magnesium Oxide) 400 mg PO DAILY [facility] Last Admin: 07/09/18 08:15 Dose: 400 mg Mineral Oil/White Petrolatum (Eucerin Cream) 0 gm TOP BIDPRN PRN PRN Reason: Dry Skin Nifedipine (Procardia Xl) 90 mg PO DAILY [facility] Last Admin: 07/09/18 08:21 Dose: Not Given Nitroglycerin (Nitrostat) 0.4 mg SL Q5MIN PRN PRN Reason: Chest Pain Last Admin: 07/05/18 08:33 Dose: 0.4 mg Ondansetron HCl (Zofran Odt) 4 mg PO Q6H PRN PRN Reason: Nausea/Vomiting Last Admin: 07/06/18 18:00 Dose: 4 mg Ondansetron HCl (Zofran) 4 mg IVP Q6H PRN PRN Reason: Nausea/Vomiting Last Admin: 07/03/18 12:57 Dose: 4 mg Senna/Docusate Sodium (Senokot S) 2 tab PO BIDPRN PRN PRN Reason: Constipation Simvastatin (Zocor) 40 mg PO HS [facility] Last Admin: 07/08/18 20:35 Dose: 40 mg Sodium Bicarbonate (Bicarbonate, Sodium) 650 mg PO BID [facility] Last Admin: 07/09/18 08:14 Dose: 650 mg Sodium Chloride ([place] Nasal [place] 0.65%) 0 ml EA NARE QIDPRN PRN PRN Reason: Nasal Congestion Sodium Chloride (Flush - Normal Saline) 10 ml IVF Q12HR [facility] Last Admin: 07/09/18 08:16 Dose: 10 ml Sodium Chloride (Flush - Normal Saline) 10 ml IVF PRN PRN PRN Reason: Saline Flush Sodium Polystyrene Sulfonate (Kayexelate Oral Susp 15 Gm/60 Ml) 30 gm PO 0700 [facility] Stop: 07/09/18 10:00 Last Admin: 07/09/18 08:12 Dose: 30 gm Throat Lozenges (Cepastat Lozenges) 1 rafael PO Q2H PRN PRN Reason: Sore Throat Zolpidem Tartrate (Ambien) 5 mg PO HSPRN PRN PRN Reason: Insomnia
[2018-07-09 16:53] LABS: Potassium 4.4 mmol/L (3.5-5.1)
[2018-07-09] MEDS: Simvastatin 40 MG TAB PO SCH (19:59)
[2018-07-09] MEDS: cloNIDine 0.3 MG TAB PO SCH (19:59)
[2018-07-09] MEDS ORDERED: Cipro 250 MG TAB PO SCH (20:00)
[2018-07-09 20:04] VITALS: BP 179/79
[2018-07-09 20:10] VITALS: TEMP 99.1
--- NOTE | 2018-07-10 07:29 | DIS ---
PRIMARY DISCHARGE DIAGNOSES: 1. Recurrent stable angina secondary to coronary artery disease. 2. Hyperkalemia due to renal failure, urinary tract infection. SECONDARY DISCHARGE DIAGNOSES: Anemia of renal disease; anxiety/depression; chronic diastolic heart failure, stage C; chronic kidney disease, stage 4; coronary artery disease; diabetes, type 2; hyperte nsion; dyslipidemia; systemic lupus erythematosus; nephrolithiasis; metabolic acidosis due to renal f ailure; noncompliance with treatment; obesity with BMI 38; secondary hyperparathyroidism of renal origin. PRIMARY PROCEDURES/OPERATIONS: None. RADIOLOGICAL INVESTIGATION: Renal ultrasound was chronic medical renal disease. MRI brain negative. Echocardiography showed normal EF. SIGNIFICANT LABORATORY DATA: Hemoglobin 8.5. Creatinine 5.35, potassium 4.4, phosphorus 5.3. Urina lysis suggestive of urinary tract infection. DISCHARGE MEDICATIONS: Aspirin 81 mg daily, Coreg 25 mg p.o. b.i.d., clonidine 0.3 mg at bedtime, [place] six 40 mg daily, Procardia XL 30 mg b.i.d., nitroglycerin 0.3 mg sublingual p.r.n., Zocor 40 mg p.o. at bedtime, Cipro 250 mg at bedtime, PhosLo 667 mg t.i.d., Tums 1000 mg b.i.d., Imdur 60 mg p.o. sugey y, sodium bicarbonate 650 mg p.o. b.i.d. CONTRAINDICATIONS: None. CODE STATUS: FULL CODE. INPATIENT CONSULTANTS: Dr. Aleks Montilla was following while in hospital. Dr. Aivla was consulted while in hospital as well. TEST RESULTS PENDING ON DISCHARGE: None. ALLERGIES: HYDRALAZINE, DOXYLAMINE. DISCHARGE PLAN: Post hospital, the patient will follow up with Dr. Aleks Montilla, Dr. Avila and [facility]. HOSPITAL COURSE: A 57-year-old female, who was admitted by Dr. Wyatt on 07/03/2018. Please see his H&P for further details. The patient was having recurrent angina. Cardiology was consulted. The p atient angina was related with hypertension and underlying coronary artery disease. During this admi ssion, medication was adjusted. The patient also had worsening renal insufficiency with hyperkalemia, metabolic acidosis, and that is why Nephrology was following, but the patient was not a candidate for hemodialysis during this admis pete. This patient will need near future dialysis soon because of her ongoing intermittent uremia symptoms. This patient will follow up with Cardiology and Nephrology as an outpatient basis. At this point, all consultants cleared her for discharge. The patient is medically stable for discha rge as well. All new medication prescription given to her pharmacy.
[2018-07-10] MEDS ORDERED: NIFEdipine XL 60 MG TAB PO SCH (09:00)
--- NOTE | 2018-07-14 16:58 | EKG ---
Test Reason : Blood Pressure : / mmHG Vent. Rate : 074 BPM Atrial Rate : 074 BPM P-R Int : 154 ms QRS Dur : 092 ms QT Int : 400 ms P-R-T Axes : 042 022 053 degrees QTc Int : 444 ms Normal sinus rhythm Normal ECG Confirmed by CHEN BACH, PRIETO ([id number]), news video editor OLAMIDE BAH ([id number]) on 07/14/2018 4:58:10 PM Referred By: Confirmed By:PRIETO SIDDIQUI MD
== END 2018-07-09 19:58 | disposition home or self-care (01) | DRG 302 ==
LOC: ERS 21:23 → 2NO 22:17
PROVIDERS: ADMIT Internal Medicine; ATTEND Internal Medicine
DX: I25.119 Atherosclerotic heart disease of native coronary artery with unspecified angina pectoris (principal); N18.6 End stage renal disease; N39.0 Urinary tract infection, site not specified; I13.2 Hypertensive heart and chronic kidney disease with heart failure and with stage 5 chronic kidney disease, or end stage renal disease; I50.32 Chronic diastolic (congestive) heart failure; E87.2 Acidosis; N25.81 Secondary hyperparathyroidism of renal origin; E78.5 Hyperlipidemia, unspecified; M32.9 Systemic lupus erythematosus, unspecified; F41.9 Anxiety disorder, unspecified; F32.9 Major depressive disorder, single episode, unspecified; E87.5 Hyperkalemia; E11.22 Type 2 diabetes mellitus with diabetic chronic kidney disease; D63.1 Anemia in chronic kidney disease; Z91.19 Patient's noncompliance with other medical treatment and regimen; E66.9 Obesity, unspecified; Z68.38 Body mass index [BMI] 38.0-38.9, adult; H53.8 Other visual disturbances; N20.0 Calculus of kidney; Z79.82 Long term (current) use of aspirin; Z86.73 Personal history of transient ischemic attack (TIA), and cerebral infarction without residual deficits; Z83.3 Family history of diabetes mellitus; Z82.49 Family history of ischemic heart disease and other diseases of the circulatory system
CPT/HCPCS: 36415; 36416; 70551; 76770; 80048; 80069; 81001; 81003; 82010; 82330; 82553; 82570; 82803; 83605; 83690; 83735; 84100; 84133; 84300; 84484; 84550; 85007; 85025; 85027; 93005; 93010; 93306; 93798; 94640; 96360; C9113; J1644; J1815; J2405; J7611; Q0162

== ENCOUNTER 2018-10-31 06:58 | Observation (INO) | payer MEDICARE, BC ==
[2018-10-31] MEDS ORDERED: Bisacodyl 5 MG TAB PO PRN (08:38)
[2018-10-31] MEDS ORDERED: Acetaminophen 325 MG TAB PO PRN (08:38)
[2018-10-31] MEDS ORDERED: Senokot S 8.6-50 MG TAB PO PRN (08:38)
[2018-10-31] MEDS ORDERED: Labetalol HCl 100 MG/20 ML VIAL SLOW IVP PRN (08:38)
[2018-10-31] MEDS ORDERED: Ondansetron PF 4 MG/2 ML Vial IVP PRN (08:38)
[2018-10-31] MEDS ORDERED: Nitroglycerin 0.4 MG TAB (25 Tab Bottle) SL PRN (10:00)
[2018-10-31] MEDS ORDERED: Nitroglycerin 0.4 MG TAB (25 Tab Bottle) SL SCH (10:15)
[2018-10-31 11:07] VITALS: BMI 37.9
[2018-10-31 11:18] LABS: Troponin I Less than 0.010 ng/mL (< 0.028)
[2018-10-31] MEDS: Enoxaparin Sodium 40 MG/0.4 ML SYRINGE SC SCH (12:44)
[2018-10-31] MEDS: Famotidine 20 MG TAB PO SCH ×2 (12:44→22:13)
[2018-10-31] MEDS: Aspirin 325 mg Enteric Coated Tablet PO SCH (12:45)
[2018-10-31 13:34] LABS: Troponin I Less than 0.010 ng/mL (< 0.028)
[2018-10-31] MEDS ORDERED: NITROGLYCERIN 0.3 MG SL PRN (13:36)
--- NOTE | 2018-10-31 14:32 | ULT ---
CAROTID DOPPLER: Ultrasound Doppler study is performed on the extracranial carotid arteries. Color Doppler with spect ral analysis and velocity recordings obtained. INDICATION: TIA. FINDINGS: No significant plaque identified with ultrasound images in either carotid system. However, velocities in the right ICA are elevated at 148 cm/s systolic. This does indicate hemodynam ically significant stenosis and further evaluation with CT angio is recommended. In addition, there is hypoechoic mass area seen adjacent to the carotid arteries measuring up to 2 cm . These were described on a soft tissue neck exam dated 05/17/2018 and are seen on the right. These masses could also be further evaluated on the CT angio neck study. IMPRESSION: 1. Increased velocities in the right internal carotid artery indicate hemodynamically significant st enosis. 2. Hypoechoic mass-like area seen in the right neck adjacent to the carotid arteries which were desc ribed on prior soft tissue neck ultrasound. Recommend further evaluation with CT angio neck. POS: [facility]
--- NOTE | 2018-10-31 14:50 | HP ---
PRIMARY CARE PHYSICIAN: Ann-Marie. PRIMARY INFUSION NURSE: Aleks Montilla MD CHIEF COMPLAINT: Numbness and weakness of left extremities and face. HISTORY OF PRESENTING ILLNESS: Ms. Medrano is a 58-year-old female with known history of coronary artery disease, SLE, hypertension, diabetes, dyslipidemia, and chronic kidney disease, who presented to the ER with above-mentioned complaint. History is mainly obtained by the patient herself. Electronic medical records have been reviewed. The patient was last admitted to our facility in July 2018, at which time, she was having recurrent stable angina, which was found not a surgical candidate. She was seen by Cardiology at that time and it was decided that she will be managed medically. Her echocardiogram done at that time showed EF of 60% to 65% with grade 2/3 diastolic dysfunction. Today, she presented to outside emergency room with complaints of sudden onset of left-sided paresthesias of the face, left arm and left leg numbness. Upon presentation, she was hemodynamically stable with a blood pressure 140/60, pulse of 83, and respirations 99% on room air. Her further workup in the emergency room included a CT scan of the brain, which was concerning for age-indeterminate cerebellar hypoattenuation. A 12-lead EKG, chest x-ray was unremarkable. She was given saline IV fluid and aspirin and by the time, she was transferred here to our facility, her symptoms have completely resolved. She is now being admitted to the hospital for TIA workup. PAST MEDICAL HISTORY: 1. Coronary artery disease. The patient has known history of LAD disease, which was deemed inoperable causing recurrent angina. 2. Chronic kidney disease, stage 3. 3. Diabetes mellitus. 4. Hypertension. 5. Dyslipidemia. 6. SLE. 7. History of CVA. 8. Chronic diastolic congestive heart failure, stage B. PAST SURGICAL HISTORY: 1. Bilateral heel spur removal. 2. Cardiac stenting. 3. LASIK surgery. 4. Cholecystectomy. 5. Dialysis shunt, but she has not been started on dialysis yet. 6. Tubal ligation. PSYCHIATRIC HISTORY: Anxiety and depression. SOCIAL HISTORY: She has no history of drug, tobacco, or alcohol abuse. She lives at home with family. FAMILY HISTORY: Hypertension. HOME MEDICATIONS: 1. PhosLo t.i.d. 2. Aspirin 81 mg daily. 3. Isosorbide 60 mg daily. 4. Lasix 40 mg daily. 5. Carvedilol 25 mg p.o. b.i.d. 6. Simvastatin 40 mg daily. 7. Nifedipine 30 mg p.o. b.i.d. 8. Clonidine 0.3 mg at bedtime. 9. Sodium bicarbonate 650 mg p.o. b.i.d. REVIEW OF SYSTEMS: A 12-point review of system is done. It is negative except for those mentioned in the history and physical. LABORATORY DATA: CBC shows hemoglobin 8.0, otherwise unremarkable. It is normochromic normocytic. Serum chemistries show BUN of 69, creatinine 4.72. Cardiac enzymes negative x3. CT scan of the brain shows age-indeterminate hypoattenuation in the cerebellar area on the left side and mild chronic small-vessel ischemic changes. PHYSICAL EXAMINATION: VITAL SIGNS: Most recent vital signs; temperature 97.9, pulse of 76, respirations 18, saturating 100% on room air, and blood pressure 146/63. GENERAL: No acute distress. Lying comfortably in bed. Awake, alert, and oriented x3. HEENT: Mucous membrane is moist and pink. No oropharyngeal exudate or erythema. Head is normocephalic and atraumatic. Pupils are equal and reactive to light and accommodation. Extraocular movement intact. NECK: Supple without any lymphadenopathy, JVD, or bruit. CHEST: Clear to auscultation without any wheezing, rales, or rhonchi. She is tender to palpation in the left anterior chest. Rate rhythm is regular without any murmurs, rubs, or gallops. ABDOMEN: Soft, nontender, and nondistended. Positive bowel sounds. EXTREMITIES: Free of any cyanosis, clubbing, or edema. NEUROLOGIC: Nonfocal. SKIN: Free of any rashes or bruises. Feels warm and dry to touch. PSYCHIATRIC: Normal affect. IMPRESSION AND PLAN: 1. Transient ischemic attack. The patient already is on aspirin. We will continue that and continue her simvastatin. We will obtain an MRI of the brain and repeat the carotid Doppler ultrasound. Her last carotid Doppler ultrasound that was done in 2017 showed [id number] stenosis on the left internal carotid artery and right-sided soft tissue mass. Meanwhile, she will be admitted to stroke floor, and we will consult Neurology and Stroke Team. 2. Coronary artery disease. The patient did experience some chest pain shortly after admission, but she was tender to palpation. Cardiac enzymes and EKG drawn that time were unremarkable. I do not think that this is anginal pain. We will restart her home medications of aspirin, statin, isosorbide, and beta blockers. She is not on any RINA inhibitors, most likely due to her chronic kidney disease and not being on dialysis as yet. 3. Chronic kidney disease, type 4. It is stable. She will continue to follow up with her own dial lathe operator, Dr. Montilla in the outpatient setting. 4. Hypertension, restart home medication, but avoid significant lowering of the blood pressure. 5. Diabetes mellitus. It does not seem like that the patient takes any medication at home. We will use mild insulin sliding scale while she is here with frequent Accu-Cheks. 6. Deep venous thrombosis and gastrointestinal prophylaxis. 7. Anemia of chronic kidney disease, stable. DISPOSITION: Ms. Medrano is currently being admitted to the hospital for TIA workup. She is hemodynamically stable. She is observation status. Further management will depend upon her clinical course. Job ID: [id number]
[2018-10-31 16:39] LABS: Troponin I Less than 0.010 ng/mL (< 0.028)
--- NOTE | 2018-10-31 16:41 | MRI ---
MRI BRAIN WITHOUT CONTRAST: HISTORY: Left face and upper extremity numbness and tingling. COMPARISON: CT brain same day. MRI brain from 07/05/2018. FINDINGS: Remote left posterior-inferior cerebellar infarct. No new acute infarction on the diffusion-weighted imaging sequence. This is confirmed on the ADC map. Moderate microvascular ischemic changes in the subcortical and deep white matter. No midline shift o r mass effect. Chronic bilateral hyperostosis frontalis. No hydrocephalus. The globes are normal. No abnormal hemorrhage on the susceptibility imaging sequence. No abnormal a reas of hemorrhage. The [place] flow voids are maintained. IMPRESSION: Chronic findings. No acute infarct or hemorrhage . POS: [facility]
[2018-10-31] MEDS: Calcium Acetate 667 MG CAP PO SCH (18:32)
[2018-10-31] MEDS ORDERED: Simvastatin 40 MG TAB PO SCH (21:00)
[2018-10-31] MEDS ORDERED: cloNIDine 0.3 MG TAB PO SCH (21:00)
[2018-10-31] MEDS: Carvedilol 25 MG TAB PO SCH (22:13)
[2018-10-31] MEDS: NIFEdipine XL 30 MG TAB PO SCH (22:14)
[2018-10-31] MEDS: Sodium Bicarbonate Tab 325 MG TAB PO SCH (22:14)
[2018-11-01 05:39] LABS: #Eosinphils 0.1 thou/uL (0.0-0.7); #Lymphocytes 2.2 thou/uL (1.20-3.40); #Monocytes 0.5 thou/uL (0.11-0.59); #Neutrophils 2.9 thou/uL (1.40-6.50); %Basophils 0.7 % (0.0-1.0); %Eosinophils 1.5 % (0.0-10.0); %Lymphocytes 38.3 % (21.0-51.0); %Monocytes 9.4 % (0.0-10.0); %Neutrophils 50.1 % (42.0-75.0); Hemoglobin 8.1 g/dL (12.0-16.0); Mean Corpuscular HGB CONC 32.8 g/dL (32.0-36.0); Mean Corpuscular Hemoglobin 32.2 pg (27.0-31.0); Mean Platelet Volume 8.2 fL (7.4-10.4); Platelet Count 164 thou/uL (130-400); RBC Distribution Width 12.3 % (11.5-14.5); Red Blood Cell (RBC) Count 2.52 mill/uL (4.20-5.40); White Blood Cell (WBC) Count 5.7 thou/uL (4.8-10.8)
[2018-11-01 05:59] LABS: Anion Gap 14 mmol/L (10-20); BUN (Urea Nitrogen) 65 mg/dL (9.8-20.1); Calc. Creatinine Clearance 20 mL/min (70-130); Calcium 8.2 mg/dL (7.8-10.44); Carbon Dioxide 17 mmol/L (22-29); Cardiac Risk 2.6 (Less than 4.5); Chloride 114 mmol/L (98-107); Cholesterol 60 mg/dl (< 200 Desired); Estimated GFR-MDRD 10; Glucose 94 mg/dL (70-105); HDL Cholesterol 23 mg/dL (>60 Neg Risk); LDL Cholesterol, Calculated 23 mg/dL; Potassium 5.3 mmol/L (3.5-5.1); Sodium 140 mmol/L (136-145); Triglycerides 68 mg/dL (Less than 150)
[2018-11-01] MEDS ORDERED: Aspirin 81 mg Enteric Coated Tablet PO SCH (09:00)
[2018-11-01] MEDS ORDERED: Furosemide 40 MG TAB PO SCH (09:00)
--- NOTE | 2018-11-01 09:34 | CON ---
DATE OF CONSULTATION: 10/31/2018 CONSULTING PHYSICIAN: Hospitalist Service. IMPRESSION: 1. Transient ischemic attack with transient left-sided weakness. 2. Right carotid stenosis of indeterminate severity. 3. Hypertension. 4. Aspirin failure. PLAN: 1. CTA of the carotids. 2. Add Plavix. HISTORY OF PRESENT ILLNESS: Ms. Medrano is a 58-year-old female with reported history of past TIAs. She presented yesterday with complaints of transient left-sided weakness and numbness. She said it lasted several minutes, but the numbness has not completely resolved. She was admitted for evaluation. Her MRI of the brain did not show any acute areas of ischemia. There is a moderate amount of microvascular disease present bilaterally. Her carotid exam showed elevated velocities on the right suggesting significant stenosis of an indeterminate amount. She has had a recent echocardiogram done last July, which showed a normal ejection fraction of 60% to 65%. She was on aspirin and a statin on admission. PAST MEDICAL HISTORY: As noted above. ALLERGIES: DEXTROMETHORPHAN, DOXYLAMINE, HYDRALAZINE AMONG OTHERS. SOCIAL HISTORY: No tobacco or illicit drug use. FAMILY HISTORY: Noncontributory. MEDICATIONS: Medication list was reviewed. . REVIEW OF SYSTEMS: A 10-system review of systems is otherwise negative. PHYSICAL EXAMINATION: GENERAL: She is an overweight, middle-aged woman, in no acute distress. VITAL SIGNS: Blood pressure 141/65, pulse 72, respirations 16, temperature 98.3. HEENT: Pupils equal and reactive. Conjunctivae clear. Oropharynx clear. NECK: Supple. EXTREMITIES: No cyanosis or edema. NEUROLOGIC: She is alert and appropriate. Her speech is fluent and clear. Cranial nerves are intact. Motor exam shows symmetric strength. She is able to walk independently. No tremor. Dysmetria is present. Sensation was intact to light touch in the upper extremities. IMAGING: EKG showed normal sinus rhythm. LABORATORY STUDIES: White blood cell count 5.7, hemoglobin 8.1, normal platelets. Electrolytes showed a BUN of 65, creatinine of 4.56. Cholesterol risk ratio of 2.6. SUMMARY: Middle-aged woman with transient neurologic deficits suggestive of a transient ischemic attack. Her carotid exam suggest high-grade stenosis on the right. She might require endarterectomy. Will need further evaluation of the carotids to be certain. Job ID: [id number]
[2018-11-01] MEDS: Aspirin 325 mg Enteric Coated Tablet PO SCH (09:43)
[2018-11-01] MEDS: Enoxaparin Sodium 40 MG/0.4 ML SYRINGE SC SCH (09:43)
[2018-11-01] MEDS: Calcium Acetate 667 MG CAP PO SCH ×2 (09:43→11:53)
[2018-11-01] MEDS: Sodium Bicarbonate Tab 325 MG TAB PO SCH (09:43)
[2018-11-01] MEDS: NIFEdipine XL 30 MG TAB PO SCH (09:43)
[2018-11-01] MEDS: Famotidine 20 MG TAB PO SCH (09:43)
[2018-11-01] MEDS: Carvedilol 25 MG TAB PO SCH (09:43)
--- NOTE | 2018-11-01 11:43 | CON ---
DATE OF CONSULTATION: HISTORY OF PRESENT ILLNESS: Ms. Medrano is a 58-year-old woman with severe renal insufficiency - her current creatinine is 4.56. She has been prepared for dialysis that has not been started yet. She presented with a day and a half history of left face and arm numbness. She had no motor difficulties. She had no facial droop. She had no visual deficits. She does convey the history of a cerebrovascular accident in the remote past. This involved her left face, arm, and leg, where she was paralyzed for approximately 2 months. Her symptoms have essentially resolved at this point. She has had a carotid ultrasound performed, which shows an elevated velocity in the right internal carotid system. Peak systolic velocity is 148 cm/second. Interestingly, she has no plaque visible in either carotid system. There is no comment on the tortuosity of the carotid system at all. PAST MEDICAL HISTORY: 1. Chronic renal insufficiency. 2. Coronary artery disease. 3. Diabetes mellitus. 4. Hypertension. 5. Dyslipidemia. 6. SLE. 7. History of previous cerebrovascular accident. 8. Congestive heart failure. PAST SURGICAL HISTORY: 1. LASIK. 2. Cholecystectomy. 3. Left arm dialysis graft. 4. BTL. 5. Bilateral heel spur surgery. SOCIAL HISTORY: She does not use alcohol or tobacco. She lives at home with her family. HOME MEDICATIONS: Noted. ALLERGIES: NONE. PHYSICAL EXAMINATION: GENERAL: This is a well-developed, well-nourished woman, resting comfortably in bed. VITAL SIGNS: Height 5 feet 2 inches, weight 207 pounds. Temperature is 98.3, pulse is 72 and regular, and blood pressure is 145/67. HEENT: Sclerae nonicteric. NECK: Supple. She has no carotid bruits. CHEST: Clear bilaterally. HEART: Rhythm is regular. ABDOMEN: Soft and nontender. EXTREMITIES: There is no edema. She has a good bruit in her left brachiocephalic fistula. Also, she has a good thrill in her left brachiocephalic fistula. ASSESSMENT AND PLAN: It is an interesting situation as she has no plaque in her carotid system, but by history had a previous right brain cerebrovascular accident and recent right brain transient ischemic attack. MRI of the brain does not confirm either of these facts. Due to her elevated creatinine, we cannot do any sort of contrasted study; therefore, I would like to get a CT without contrast and evaluate her carotid anatomy. If she has a tortuous carotid system, this could easily explain elevated velocity in the right carotid. More than likely if there is no plaque, we will just recommend aspirin and Plavix. Reviewed CT - there is no tortuosity of the carotid systems. There is no calcified plaque. Would recommend ASA 81mg/Plavix 75mg Job ID: [id number] MTDD
--- NOTE | 2018-11-01 12:15 | CT ---
CT NECK NONCONTRAST: Date: 11/01/18 HISTORY: Atherosclerosis. Right carotid stenosis on ultrasound. Renal failure precludes IV contrast administra tion. FINDINGS: Normal branching of the great vessels at the aortic arch with only a small amount of arterial calcifi cation. Along the course of each common carotid and internal carotid artery, no significant calcification or other abnormality are apparent on the noncontrast study. Dystrophic calcification is associated with a lobular otherwise soft tissue density mass just lateral to the internal jugular vein at the C6 level. It is 2.4 cm length x 1.8 cm oblique width. IMPRESSION: 1. Very mild arterial calcification at the aortic arch. No significant carotid calcification is appa rent. 2. Partially calcified lobular lesion at the right side of the neck is favored to represent dystroph ic calcification within a group of lymph nodes that are slightly enlarged. POS: COLE
[2018-11-01 12:19] VITALS: BP 148/68; TEMP 98.1
--- NOTE | 2018-11-01 16:03 | DIS ---
DATE OF ADMISSION: 10/31/2018 DATE OF DISCHARGE: 11/01/2018 PRIMARY CARE PHYSICIAN: Ann-Marie. DISCHARGE DISPOSITION: Home. DISCHARGE DIAGNOSIS: 1. Transient ischemic attack. 2. Carotid arterial stenosis. 3. History of end-stage renal disease, currently not on hemodialysis, follows up with Dr. Aleks Montilla. 4. History of coronary artery disease and re-occurrent angina. 5. Diabetes mellitus. 6. Hypertension. 7. Dyslipidemia. 8. SLE. 9. History of cerebrovascular accident. 10. Chronic diastolic congestive heart failure, stage B. DISCHARGE MEDICATIONS: Resume home medication as per the H and P. New medication, Plavix 75 mg daily. PROCEDURES DONE IN HOSPITAL: 1. MRI of the brain, which shows no acute infarction, but only chronic small vessel ischemic changes. 2. Carotid Doppler ultrasound, which shows possible hemodynamically significant stenosis of the right internal carotid artery. 3. CT scan of the neck without contrast, which shows very mild arterial calcification of the aortic arch and partially calcified lobular lesion in the right side of the neck favor to represent dystrophic calcification with a group of lymph nodes, which are slightly enlarged. No significant carotid arterial calcification noticed. IN-HOUSE CONSULTATIONS: 1. Neurology, Dr. David Ann. 2. Cardiovascular Surgery, Dr. Fuentes. HISTORY OF PRESENTING ILLNESS: Ms. Medrano is a 58-year-old female with known history of coronary artery disease as well SLE and chronic kidney disease, among other comorbidities, who presented to the emergency room with complaints of paresthesias of left side of the face and left arm and leg. Her head CT was negative and she was admitted for stroke workup. Please see admission history and physical for further details. She was hemodynamically stable. HOSPITAL COURSE: The patient underwent stroke workup including MRI of the brain, carotid Doppler ultrasound was done and was evaluated by Neurology Dr. Ann. Her carotid Doppler ultrasound was concerning for possibly right-sided stenosis, but CT angio could not be done because of her end-stage renal disease. She is not on any hemodialysis for now. Cardiovascular Surgery was consulted with regard to abnormal carotid Doppler ultrasound results and Dr. Fuentes saw the patient. He ordered a noncontrast CT scan and it did not show any tortuosity, calcified block, so Dr. Fuentes recommended aspirin with Plavix. She was started on Plavix and was discharged on same. She was seen and examined prior to discharge and is feeling very well and is asymptomatic. PHYSICAL EXAMINATION: VITAL SIGNS: This morning; blood pressure 148/68, heart rate 66, and temperature 98.1. GENERAL: No acute distress. Awake, alert, and oriented x3. CHEST: Clear to auscultation bilaterally. HEART: Rate and rhythm are regular. NEUROLOGIC: Unremarkable. LABORATORY DATA: Troponin less than 0.010 x3. Lipid profile negative. Potassium 5.3, for which she received a dose of Kayexalate. Creatinine 4.56, which is at baseline. FOLLOWUP: Followup with primary care physician and Nephrology in the outpatient setting. Job ID: [id number]
== END 2018-11-01 14:08 | disposition home or self-care (01) ==
LOC: ERS 06:58 → 2SE 09:38
PROVIDERS: ADMIT Internal Medicine; ATTEND Internal Medicine
DX: G45.9 Transient cerebral ischemic attack, unspecified (principal); I25.118 Atherosclerotic heart disease of native coronary artery with other forms of angina pectoris; I13.0 Hypertensive heart and chronic kidney disease with heart failure and stage 1 through stage 4 chronic kidney disease, or unspecified chronic kidney disease; E11.22 Type 2 diabetes mellitus with diabetic chronic kidney disease; N18.4 Chronic kidney disease, stage 4 (severe); I50.32 Chronic diastolic (congestive) heart failure; D63.1 Anemia in chronic kidney disease; M32.9 Systemic lupus erythematosus, unspecified; E78.5 Hyperlipidemia, unspecified; F41.9 Anxiety disorder, unspecified; F32.9 Major depressive disorder, single episode, unspecified; Z86.73 Personal history of transient ischemic attack (TIA), and cerebral infarction without residual deficits; Z95.5 Presence of coronary angioplasty implant and graft; Z88.8 Allergy status to other drugs, medicaments and biological substances; Z90.49 Acquired absence of other specified parts of digestive tract; Z98.51 Tubal ligation status; Z79.82 Long term (current) use of aspirin; Z98.890 Other specified postprocedural states; Z79.02 Long term (current) use of antithrombotics/antiplatelets; Z79.899 Other long term (current) drug therapy
CPT/HCPCS: 70490; 70551; 80048; 80061; 82962; 83735; 84484; 85025; 93005; 93880; 96372 ×2; 97116; 97139 ×3; 99285; G0378 ×2; 36415; 36416; 93010; J1650

== ENCOUNTER 2018-12-31 18:58 | Emergency (ER) | payer MEDICARE, BC ==
[2018-12-31 19:46] LABS: #Eosinphils 1.1 thou/uL (0.0-0.7); #Lymphocytes 1.9 thou/uL (1.20-3.40); #Monocytes 0.6 thou/uL (0.11-0.59); #Neutrophils 3.8 thou/uL (1.40-6.50); %Basophils 0.5 % (0.0-1.0); %Eosinophils 14.9 % (0.0-10.0); %Lymphocytes 25.7 % (21.0-51.0); %Monocytes 7.6 % (0.0-10.0); %Neutrophils 51.4 % (42.0-75.0); Hemoglobin 8.3 g/dL (12.0-16.0); Mean Corpuscular HGB CONC 34.4 g/dL (32.0-36.0); Mean Corpuscular Hemoglobin 31.4 pg (27.0-31.0); Mean Corpuscular Volume 91.2 fL (78.0-98.0); Mean Platelet Volume 7.9 fL (7.4-10.4); Platelet Count 179 thou/uL (130-400); RBC Distribution Width 12.6 % (11.5-14.5); Red Blood Cell (RBC) Count 2.64 mill/uL (4.20-5.40); White Blood Cell (WBC) Count 7.4 thou/uL (4.8-10.8)
[2018-12-31 19:52] LABS: INR-International Normal Ratio 1.2; Prothrombin Time 15.2 SEC (12.0-14.7)
[2018-12-31 20:07] LABS: ALT (SGPT) 14 U/L (8-55); AST (SGOT) 14 U/L (5-34); Albumin 3.9 g/dL (3.5-5.0); Alkaline Phosphatase 92 U/L (40-150); Anion Gap 15 mmol/L (10-20); BUN (Urea Nitrogen) 94 mg/dL (9.8-20.1); Bilirubin, Total 0.4 mg/dL (0.2-1.2); Calc. Creatinine Clearance 0 mL/min (70-130); Calcium 7.2 mg/dL (7.8-10.44); Carbon Dioxide 15 mmol/L (22-29); Chloride 115 mmol/L (98-107); Estimated GFR-MDRD 9; Globulin 4.2 g/dL (2.4-3.5); Glucose 116 mg/dL (70-105); Lipase 131 U/L (8-78); Magnesium 1.4 mg/dL (1.6-2.6); Potassium 4.2 mmol/L (3.5-5.1); Protein, Total 8.1 g/dL (6.0-8.3); Sodium 141 mmol/L (136-145)
--- NOTE | 2018-12-31 20:08 | CT ---
CT abdomen noncontrast CT pelvis noncontrast: (Urolithiasis protocol) DATE: 12/31/2018 HISTORY: 58-year-old female with left flank pain. COMPARISON: None available TECHNIQUE: IV injection of iodinated contrast media: None Oral contrast media: None FINDINGS: Other than for urolithiasis, the lack of IV and oral contrast limits the evaluation. The head of the pancreas appears slightly prominent. The evaluation is very limited without IV contra st. No renal, ureteral, or bladder calculus identified. Within the limitations of a noncontrast scan, no gross abnormality is identified involving the urinar y bladder, appendix, abdominal aorta, liver, adrenals, or spleen. No small bowel dilation. Extensive sigmoid and descending colonic diverticulosis without diverticulitis. No pneumoperitoneum o r ascites. No pleural effusion. Lung bases are grossly clear. IMPRESSION: 1. No urolithiasis or obstructive uropathy. 2. Nonspecific prominence of pancreatic head, incompletely evaluated. 3. Left colonic diverticulosis without diverticulitis.
== END 2018-12-31 21:41 | disposition home or self-care (01) ==
LOC: ERS 18:58
DX: N19 Unspecified kidney failure (principal); R53.81 Other malaise; E11.9 Type 2 diabetes mellitus without complications; E78.5 Hyperlipidemia, unspecified; I10 Essential (primary) hypertension; Z86.73 Personal history of transient ischemic attack (TIA), and cerebral infarction without residual deficits; Z79.899 Other long term (current) drug therapy; Z79.82 Long term (current) use of aspirin
CPT/HCPCS: 36415; 74176; 80053; 83690; 83735; 85025; 85610

== ENCOUNTER 2019-09-23 20:53 | Inpatient (IN) | payer MEDICARE ==
--- NOTE | 2019-09-23 21:28 | RAD ---
Exam: Chest one view HISTORY:Chest pain Comparison: 07/02/2018 FINDINGS: Cardiac silhouette: Normal Aorta: Atherosclerosis Pulmonary vessels: Normal Costophrenic angles: Clear LUNGS: No masses or consolidation. Pneumothorax: None Osseous abnormalities: None IMPRESSION: No acute cardiopulmonary process. Atherosclerosis
[2019-09-23 21:29] LABS: #Basophils 0.1 thou/uL (0.0-0.2); #Eosinphils 0.9 thou/uL (0.0-0.7); #Lymphocytes 1.6 thou/uL (1.20-3.40); #Monocytes 0.5 thou/uL (0.11-0.59); #Neutrophils 5.9 thou/uL (1.40-6.50); %Basophils 0.6 % (0.0-1.0); %Lymphocytes 17.3 % (21.0-51.0); %Monocytes 5.8 % (0.0-10.0); %Neutrophils 66.3 % (42.0-75.0); Hemoglobin 8.4 g/dL (12.0-16.0); Mean Corpuscular HGB CONC 32.8 g/dL (32.0-36.0); Mean Corpuscular Volume 97.6 fL (78.0-98.0); Mean Platelet Volume 7.9 fL (7.4-10.4); Platelet Count 173 thou/uL (130-400); RBC Distribution Width 12.6 % (11.5-14.5); Red Blood Cell (RBC) Count 2.63 mill/uL (4.20-5.40)
[2019-09-23 21:53] LABS: ALT (SGPT) 8 U/L (8-55); AST (SGOT) 10 U/L (5-34); Albumin 3.3 g/dL (3.5-5.0); Alkaline Phosphatase 90 U/L (40-110); Anion Gap 16 mmol/L (10-20); BUN (Urea Nitrogen) 82 mg/dL (9.8-20.1); Bilirubin, Total 0.3 mg/dL (0.2-1.2); CK (CPK) 46 U/L (29-168); Calc. Creatinine Clearance 0 mL/min (70-130); Calcium 7.3 mg/dL (7.8-10.44); Carbon Dioxide 15 mmol/L (22-29); Chloride 115 mmol/L (98-107); Estimated GFR-MDRD 7; Globulin 4.1 g/dL (2.4-3.5); Glucose 134 mg/dL (70-105); Protein, Total 7.4 g/dL (6.0-8.3); Sodium 140 mmol/L (136-145)
[2019-09-24 01:08] LABS: Anion Gap 16 mmol/L (10-20); BUN (Urea Nitrogen) 79 mg/dL (9.8-20.1); Calc. Creatinine Clearance 0 mL/min (70-130); Calcium 7.1 mg/dL (7.8-10.44); Carbon Dioxide 13 mmol/L (22-29); Chloride 117 mmol/L (98-107); Estimated GFR-MDRD 7; Glucose 122 mg/dL (70-105); Sodium 140 mmol/L (136-145)
[2019-09-24 01:14] LABS: Troponin I Less than 0.010 ng/mL (< 0.028)
[2019-09-24] MEDS ORDERED: Sodium Chloride 0.9% 1,000 ML IV SCH (01:30)
[2019-09-24 03:43] LABS: Troponin I Less than 0.010 ng/mL (< 0.028)
[2019-09-24] MEDS ORDERED: Ondansetron PF 4 MG/2 ML Vial IVP PRN (08:10)
[2019-09-24] MEDS ORDERED: Furosemide 40 MG/4 ML VIAL SLOW IVP SCH (08:15)
[2019-09-24] MEDS ORDERED: Sodium Bicarb 50 MEQ/50 ML Abboject 8.4% SYRINGE IVP SCH (08:15)
[2019-09-24] MEDS: Sodium Bicarbonate Tab 325 MG TAB PO SCH ×2 (08:53→20:21)
[2019-09-24] MEDS: NIFEdipine XL 30 MG TAB PO SCH ×2 (08:53→20:21)
[2019-09-24] MEDS: Carvedilol 25 MG TAB PO SCH ×2 (08:53→20:21)
--- NOTE | 2019-09-24 10:09 | PDOC.HHP ---
Hospitalist HPI - History of Present Illness Chest pain History of Present Illness: Ms. Medrano is a 59 y/o lady with PMH of CKD stage V (not on dialysis), HTN, anemia of chronic disease, history of stroke who presents with chest pain which started around 6 o clock last night. She states she was sitting and developed episode of midsternal chest pressure, character was described as pressure like, did not radiate, associated with elevated blood pressure, timing was continuous , exacerbated by nothing in particular, and severity was 8/10. She states she measured her blood pressure during that time her systolics were greater than 180. She took some of her home clonidine and states she felt better. She states when her blood pressure become elevated, she sometimes gets symptoms of chest pain. She decided to come to ED because her blood pressure did not improve. Upon arrival, her EKG and troponin studies were unremarkable and she did not have any more chest pain. Her potassium was 6. She reportedly has dialysis fistula, but still makes urine and has not used it for dialysis yet. Her auto air conditioning installer is Dr. Montilla. Hospitalist ROS - Review of Systems Constitutional: denies: fever, chills, sweats, weakness, malaise, other Eyes: denies: pain, vision change, conjunctivae inflammation, eyelid inflammation, redness, other ENT: denies: ear pain, ear discharge, nose pain, nose discharge, nose congestion , mouth pain, mouth swelling, throat pain, throat swelling, other Respiratory: denies: cough, dry, shortness of breath, hemoptysis, SOB with excertion, pleuritic pain, sputum, wheezing, other Cardiovascular: reports: chest pain. denies: palpitations, orthopnea, paroxysmal noc. dyspnea, edema, light headedness, other Gastrointestinal: denies: nausea, vomiting, abdominal pain, diarrhea, constipation, melena, hematochezia, other Genitourinary: denies: dysuria, frequency, incontinence, hematuria, retention, other Musculoskeletal: denies: neck pain, shoulder pain, arm pain, back pain, hand pain, leg pain, foot pain, other Skin: denies: rash, lesions, aura, bruising, other Neurological: denies: weakness, numbness, incoordination, change in speech, confusion, seizures, other - Medication Medications: Active Medications Generic Name Dose Route Start Last Admin Trade Name Freq PRN Reason Stop Dose Admin Carvedilol 25 mg 09/24/19 09:00 09/24/19 08:53 Coreg PO 25 mg BID LIAM Administration Nifedipine 30 mg 09/24/19 09:00 09/24/19 08:53 Procardia Xl PO 30 mg BID LIAM Administration Sodium Bicarbonate 650 mg 09/24/19 09:00 09/24/19 08:53 Bicarbonate, Sodium PO 650 mg BID LIAM Administration Medication Instructions Recorded Confirmed Type Carvedilol [Coreg] 25 mg PO BID 06/15/16 09/24/19 History Furosemide 40 mg PO DAILY 02/14/17 09/24/19 History NIFEdipine [Nifedipine ER] 30 mg PO BID 06/20/17 09/24/19 History cloNIDine HCl 0.3 mg PO HS 09/26/17 09/24/19 History Calcium Acetate [Phoslo] 667 mg PO TID-WM #90 cap 05/18/18 09/24/19 Rx Sodium Bicarbonate [Bicarbonate, 650 mg PO BID #60 tab 05/18/18 09/24/19 Rx Sodium] Nitroglycerin 0.3 mg SL PRN PRN 07/03/18 09/24/19 History Cholecalciferol (Vitamin D3) 1,000 unit PO DAILY 09/24/19 09/24/19 History [Vitamin D] Hospitalist History - Past Medical History Source: patient Cardiac: reports: HTN Pulmonary: reports: CVA/TIA/stroke FISHER HAND LINE: reports: no pertinent history Gastrointestinal: reports: no pertinent history Heme/Onc: reports: no pertinent history Hepatobiliary: reports: no pertinent history Psych: reports: no pertinent history Musculoskeletal: reports: no pertinent history Rheumatologic: reports: no pertinent history Infectious Disease: reports: no pertinent history ENT: reports: no pertinent history Renal/: reports: Chronic renal insuff Endocrine: reports: Diabetes Dermatology: reports: no pertinent history - Past Surgical History Past Surgical History: reports: Cholecystectomy, Tubal Ligation, Other (Fistula placement) - Social History Alcohol: reports: None Drugs: reports: none Living Situation: Alone Occupation: Disability Activity level: independent ambulation - Exam General Appearance: NAD, awake alert Eye: PERRL, anicteric sclera ENT: normocephalic atraumatic, no oropharyngeal lesions, moist mucosa Neck: supple, symmetric, no JVD, no thyromegaly, no lymphadenopathy, no carotid bruit Heart: RRR, no murmur, no gallops, no rubs, normal peripheral pulses Respiratory: CTAB, no wheezes, no rales, no ronchi, normal chest expansion, no tachypnea, normal percussion Gastrointestinal: soft, non-tender, non-distended, normal bowel sounds, no palpable masses, no hepatomegaly, no splenomegaly, no bruit Extremities: no cyanosis, no clubbing, no edema Extremities - other findings: palpable fistual on left extremity Skin: normal turgor, no lesions, no rashes Neurological: cranial nerve grossly intact, normal sensation to touch, no weakness, no focal deficits, no new deficit Musculoskeletal: normal tone, normal strength, no muscle wasting Psychiatric: normal affect, normal behavior, A&O x 3 Hospitalist Results - Labs Result Diagrams: 09/23/19 21:09/24/19 00:37 Lab results: WBC 9.0 thou/uL (4.8-10.8) 09/23/19 21: Hgb 8.4 g/dL (12.0-16.0) L 09/23/19 21:20 Hct 25.7 % (36.0-47.0) L 09/23/19 21:20 MCV 97.6 fL (78.0-98.0) 09/23/19 21:20 Plt Count 173 thou/uL (130-400) 09/23/19 21:20 Neutrophils % 66.3 % (42.0-75.0) 09/23/19 21:20 Sodium 140 mmol/L (136-145) 09/24/19 00:37 Potassium 6.0 mmol/L (3.5-5.1) H 09/24/19 00:37 Chloride 117 mmol/L (98-107) H 09/24/19 00:37 Carbon Dioxide 13 mmol/L (22-29) L 09/24/19 00:37 BUN 79 mg/dL (9.8-20.1) H 09/24/19 00:37 Creatinine 6.21 mg/dL (0.6-1.1) H 09/24/19 00:37 Glucose 122 mg/dL (70-105) H 09/24/19 00:37 Calcium 7.1 mg/dL (7.8-10.44) L 09/24/19 00:37 Total Bilirubin 0.3 mg/dL (0.2-1.2) 09/23/19 21:20 AST 10 U/L (5-34) 09/23/19 21:20 ALT 8 U/L (8-55) 09/23/19 21:20 Alkaline Phosphatase 90 U/L (40-110) 09/23/19 21:20 Creatine Kinase 46 U/L (29-168) 09/23/19 21:20 Troponin I Less than 0.010 ng/mL (< 0.028) 09/24/19 03:11 Serum Total Protein 7.4 g/dL (6.0-8.3) 09/23/19 21:20 Albumin 3.3 g/dL (3.5-5.0) L 09/23/19 21:20 - EKG Interpretation EKG: EKG reviewed by la x 2 Hospitalist H&P A/P - Problem (1) Hyperkalemia Code(s): E87.5 - HYPERKALEMIA Status: Acute (2) Chest pain Code(s): R07.9 - CHEST PAIN, UNSPECIFIED Status: Resolved (3) Anemia of renal disease Code(s): D63.1 - ANEMIA IN CHRONIC KIDNEY DISEASE Status: Chronic (4) CKD (chronic kidney disease) stage 5, GFR less than 15 ml/min Code(s): N18.5 - CHRONIC KIDNEY DISEASE, STAGE 5 Status: Chronic (5) Hypertension Code(s): I10 - ESSENTIAL (PRIMARY) HYPERTENSION Status: Chronic Qualifiers: Hypertension type: essential hypertension Qualified Code(s): I10 - Essential (primary) hypertension - Plan Plan: Observation on telemetry. EKG shows no acute st-t wave changes, unremarkable. 3 sets of troponin is negative Lasix IV 40mg Once for hyperkalemia followed by her home dose of Lasix 40mg daily 1amp of bicarb given, continue her home sodium bicarb tablets Consult has been placed to her auto air conditioning installer, she is not currently on dialysis and still makes urine CP resolved, likely in the context of elevated BP, resume home medication carveidilol, nifedepine, and clonidine Code Status: Full code ACP: Son is the surrogate decision maker. Disposition: Observation. Correct of hyperkalemia. Renal recommendations appreciated.
[2019-09-24] MEDS: Calcium Acetate 667 MG CAP PO SCH ×2 (13:40→16:52)
[2019-09-24 14:31] LABS: Anion Gap 14 mmol/L (10-20); BUN (Urea Nitrogen) 75 mg/dL (9.8-20.1); Calc. Creatinine Clearance 15 mL/min (70-130); Calcium 7.3 mg/dL (7.8-10.44); Carbon Dioxide 15 mmol/L (22-29); Chloride 117 mmol/L (98-107); Estimated GFR-MDRD 7; Glucose 107 mg/dL (70-105); Potassium 4.9 mmol/L (3.5-5.1); Sodium 141 mmol/L (136-145)
[2019-09-24] MEDS: cloNIDine 0.3 MG TAB PO SCH (20:21)
[2019-09-25 04:42] LABS: Band 1 % (5-11); Eosinophils 11 % (0-10); Hypochromia SLIGHT = 6-15 cells (100X) (0-5/hpf); Lymphocytes 23 % (21-51); MDiff Complete? YES; Mean Corpuscular HGB CONC 33.4 g/dL (32.0-36.0); Mean Corpuscular Hemoglobin 32.1 pg (27.0-31.0); Mean Corpuscular Volume 96.1 fL (78.0-98.0); Mean Platelet Volume 7.8 fL (7.4-10.4); Monocytes 4 % (0-10); Neutrophil 61 % (42-75); Platelet Count 169 thou/uL (130-400); Platelet Morphology Comment Appears Adequate; RBC Distribution Width 12.5 % (11.5-14.5); White Blood Cell (WBC) Count 6.4 thou/uL (4.8-10.8)
[2019-09-25 04:47] LABS: Anion Gap 15 mmol/L (10-20); BUN (Urea Nitrogen) 76 mg/dL (9.8-20.1); Calc. Creatinine Clearance 15 mL/min (70-130); Calcium 7.2 mg/dL (7.8-10.44); Carbon Dioxide 17 mmol/L (22-29); Chloride 113 mmol/L (98-107); Estimated GFR-MDRD 7; Glucose 104 mg/dL (70-105); Potassium 5.6 mmol/L (3.5-5.1); Sodium 139 mmol/L (136-145)
[2019-09-25] MEDS ORDERED: Tuberculin PPD 0.1 ML VIAL I-DERMAL SCH (07:30)
[2019-09-25] MEDS: Sodium Bicarbonate Tab 325 MG TAB PO SCH ×2 (09:41→20:19)
[2019-09-25] MEDS: NIFEdipine XL 30 MG TAB PO SCH ×2 (09:41→20:20)
[2019-09-25] MEDS: Calcium Acetate 667 MG CAP PO SCH ×3 (09:42→16:36)
[2019-09-25] MEDS: Furosemide 40 MG TAB PO SCH (09:42)
[2019-09-25] MEDS: Carvedilol 25 MG TAB PO SCH ×2 (09:42→20:20)
[2019-09-25 13:13] LABS: HBSAB Concentration 1.37 mIU/mL; HBSAg Index 0.24 S/CO (0-0.99); Hep B Core Total Ab Non-Reactive (NonReactive); Hep B Core Total Index 0.13 S/CO (0-0.79); Hep B Surf AB Non-Reactive (NonReactive); Hep B Surf Ag Non-Reactive S/CO (NonReactive); Hep C IgG Ab Non-Reactive (NonReactive); Hep C Index 0.23 S/CO (0-0.79)
[2019-09-25 13:25] LABS: Hep C IgG Ab Non-Reactive (NonReactive); Hep C Index 0.23 S/CO (0-0.79)
[2019-09-25] MEDS: Labetalol HCl 100 MG/20 ML VIAL SLOW IVP PRN (17:48)
--- NOTE | 2019-09-25 18:32 | PDOC.HOSPP ---
- Subjective Subjective: No symptoms at this time. Will undergo dialysis today. Chest pain reportedly resolved. - Objective Vital Signs & Weight: Vital Signs (12 hours) Temp Pulse Resp BP Pulse Ox 09/25/19 16:28 98.0 F 76 18 170/74 H 98 09/25/19 11:17 97.5 F L 73 16 147/67 H 97 09/25/19 09:39 98.2 F 75 15 163/71 H 96 Weight Admit Weight 219 lb Weight 216 lb 6.4 oz I&O: 09/24/19 09/25/19 09/26/19 06:59 06:59 06:59 Intake Total 400 1960 Output Total 1200 Balance 400 760 Result Diagrams: 09/25/19 04:07 09/25/19 04:07 Hospitalist ROS - Review of Systems All other systems reviewed; all pertinent +/- noted in HPI/Subj - Medication Medications: Active Medications Generic Name Dose Route Start Last Admin Trade Name Freq PRN Reason Stop Dose Admin Calcium Acetate 667 mg 09/24/19 12:00 09/25/19 16:36 Phoslo PO 667 mg TID-WM LIAM Administration Carvedilol 25 mg 09/24/19 09:00 09/25/19 09:42 Coreg PO 25 mg BID LIAM Administration Clonidine 0.3 mg 09/24/19 21:00 09/24/19 20:21 Catapres PO 0.3 mg HS LIAM Administration Furosemide 40 mg 09/25/19 09:00 09/25/19 09:42 Lasix PO 40 mg DAILY LIAM Administration Labetalol HCl 10 mg 09/25/19 17:03 09/25/19 17:48 Normodyne SLOW IVP 10 mg Q1H PRN Administration .SBP >180 OR DBP >110 Nifedipine 30 mg 09/24/19 09:00 09/25/19 09:41 Procardia Xl PO 30 mg BID LIAM Administration Sodium Bicarbonate 650 mg 09/24/19 09:00 09/25/19 09:41 Bicarbonate, Sodium PO 650 mg BID LIAM Administration - Exam General Appearance: NAD, awake alert Eye: PERRL, anicteric sclera ENT: normocephalic atraumatic, no oropharyngeal lesions, moist mucosa Neck: supple, symmetric, no JVD, no thyromegaly, no lymphadenopathy, no carotid bruit Heart: RRR, no murmur, no gallops, no rubs, normal peripheral pulses Respiratory: CTAB, no wheezes, no rales, no ronchi, normal chest expansion, no tachypnea, normal percussion Gastrointestinal: soft, non-tender, non-distended, normal bowel sounds, no palpable masses, no hepatomegaly, no splenomegaly, no bruit Extremities: no cyanosis, no clubbing, no edema Skin: normal turgor, no lesions, no rashes Neurological: cranial nerve grossly intact, normal sensation to touch, no weakness, no focal deficits, no new deficit Musculoskeletal: normal tone, normal strength, no muscle wasting Psychiatric: normal affect, normal behavior, A&O x 3 Hosp A/P (1) Hyperkalemia Code(s): E87.5 - HYPERKALEMIA Status: Acute (2) Anemia of renal disease Code(s): D63.1 - ANEMIA IN CHRONIC KIDNEY DISEASE Status: Chronic (3) CKD (chronic kidney disease) stage 5, GFR less than 15 ml/min Code(s): N18.5 - CHRONIC KIDNEY DISEASE, STAGE 5 Status: Chronic (4) Hypertension Code(s): I10 - ESSENTIAL (PRIMARY) HYPERTENSION Status: Chronic Qualifiers: Hypertension type: essential hypertension Qualified Code(s): I10 - Essential (primary) hypertension - Plan Continue carvedilol, clonidine, nifedipine from home Labetalol 10mg IV q1hr PRN blood pressure She will undergo dialysis as per her cloth hand Will continue other supportive medication from home Dispositon: Continue dialysis. Continue to monitor BP and electrolytes after dialysis.
[2019-09-25] MEDS: cloNIDine 0.3 MG TAB PO SCH (21:51)
[2019-09-26 04:52] LABS: #Eosinphils 0.7 thou/uL (0.0-0.7); #Lymphocytes 1.5 thou/uL (1.20-3.40); #Monocytes 0.5 thou/uL (0.11-0.59); #Neutrophils 2.9 thou/uL (1.40-6.50); %Basophils 0.7 % (0.0-1.0); %Eosinophils 11.5 % (0.0-10.0); %Lymphocytes 27.2 % (21.0-51.0); %Monocytes 8.5 % (0.0-10.0); Hemoglobin 7.6 g/dL (12.0-16.0); Mean Corpuscular HGB CONC 32.5 g/dL (32.0-36.0); Mean Corpuscular Hemoglobin 31.3 pg (27.0-31.0); Mean Corpuscular Volume 96.4 fL (78.0-98.0); Mean Platelet Volume 8.1 fL (7.4-10.4); Platelet Count 147 thou/uL (130-400); RBC Distribution Width 12.4 % (11.5-14.5); Red Blood Cell (RBC) Count 2.41 mill/uL (4.20-5.40); White Blood Cell (WBC) Count 5.6 thou/uL (4.8-10.8)
[2019-09-26 05:13] LABS: Anion Gap 13 mmol/L (10-20); BUN (Urea Nitrogen) 63 mg/dL (9.8-20.1); Calc. Creatinine Clearance 18 mL/min (70-130); Calcium 7.2 mg/dL (7.8-10.44); Carbon Dioxide 21 mmol/L (22-29); Chloride 112 mmol/L (98-107); Estimated GFR-MDRD 8; Glucose 113 mg/dL (70-105); Sodium 140 mmol/L (136-145)
[2019-09-26] MEDS: Sodium Bicarbonate Tab 325 MG TAB PO SCH ×2 (08:45→20:40)
[2019-09-26] MEDS: Carvedilol 25 MG TAB PO SCH ×2 (08:45→20:40)
[2019-09-26] MEDS: NIFEdipine XL 30 MG TAB PO SCH ×2 (08:45→20:40)
[2019-09-26] MEDS: Calcium Acetate 667 MG CAP PO SCH ×3 (08:45→18:17)
[2019-09-26] MEDS: Furosemide 40 MG TAB PO SCH (08:46)
--- NOTE | 2019-09-26 18:18 | PDOC.HOSPP ---
- Subjective Encounter Date: 09/26/19 Encounter Time: 09:40 Subjective: Pt seen for followup re: hyperkalemia. Feels better, no complaints today. - Objective Vital Signs & Weight: Vital Signs (12 hours) Temp Pulse Resp BP BP Pulse Ox 09/26/19 15:37 98.1 F 67 18 123/58 L 96 09/26/19 11:27 98.1 F 68 16 152/67 H 98 09/26/19 08:45 70 97 09/26/19 07:49 98.2 F 70 20 142/65 H 96 Weight Admit Weight 219 lb Weight 214 lb 9.6 oz I&O: 09/25/19 09/26/19 09/27/19 06:59 06:59 06:59 Intake Total 1960 1660 Output Total 1200 500 Balance 760 1160 Result Diagrams: 09/26/19 04:34 09/26/19 04:35 Additional Labs: labs and MARs reviewed by me EKG Reviewed by me: Yes (Tele: NSR) Hospitalist ROS - Review of Systems Constitutional: denies: fever, chills, sweats, weakness, malaise Respiratory: denies: cough, shortness of breath, SOB with excertion, wheezing Cardiovascular: denies: chest pain, palpitations, orthopnea, paroxysmal noc. dyspnea, edema, light headedness Gastrointestinal: denies: nausea, vomiting, abdominal pain, diarrhea, constipation, melena, hematochezia Genitourinary: denies: dysuria, frequency, incontinence, hematuria, retention Skin: denies: rash, lesions, aura, bruising - Medication Medications: Active Medications Generic Name Dose Route Start Last Admin Trade Name Boy PRN Reason Stop Dose Admin Calcium Acetate 667 mg 09/24/19 12:00 09/26/19 11:55 Phoslo PO 667 mg TID-WM LIAM Administration Carvedilol 25 mg 09/24/19 09:00 09/26/19 08:45 Coreg PO 25 mg BID LIAM Administration Clonidine 0.3 mg 09/24/19 21:00 09/25/19 21:51 Catapres PO 0.3 mg HS LIAM Administration Furosemide 40 mg 09/25/19 09:00 09/26/19 08:46 Lasix PO 40 mg DAILY LIAM Administration Labetalol HCl 10 mg 09/25/19 17:03 09/25/19 17:48 Normodyne SLOW IVP 10 mg Q1H PRN Administration .SBP >180 OR DBP >110 Nifedipine 30 mg 09/24/19 09:00 09/26/19 08:45 Procardia Xl PO 30 mg BID LIAM Administration Sodium Bicarbonate 650 mg 09/24/19 09:00 09/26/19 08:45 Bicarbonate, Sodium PO 650 mg BID LIAM Administration - Exam General Appearance: NAD Eye: anicteric sclera ENT: moist mucosa Neck: supple, symmetric, no JVD, no thyromegaly Heart: RRR, no gallops, no rubs, normal peripheral pulses Respiratory: CTAB, no wheezes, no rales, no ronchi Gastrointestinal: soft, non-tender, non-distended, normal bowel sounds Neurological: cranial nerve grossly intact Psychiatric: normal affect, normal behavior, A&O x 3 Hosp A/P - Plan - Assessment (1) Hyperkalemia Code(s): E87.5 - HYPERKALEMIA Status: Acute (2) Anemia of renal disease Code(s): D63.1 - ANEMIA IN CHRONIC KIDNEY DISEASE Status: Chronic (3) ESRD needing dialysis Status: Chronic (4) Hypertension Code(s): I10 - ESSENTIAL (PRIMARY) HYPERTENSION Status: Chronic Qualifiers: Hypertension type: essential hypertension Qualified Code(s): I10 - Essential (primary) hypertension - Plan Pt had dialysis yesterday, to have dialysis tomorrow. She will undergo dialysis as per her scale shooter Monitor vital signs and titrate antihypertensives as needed.
[2019-09-26] MEDS: cloNIDine 0.3 MG TAB PO SCH (20:39)
[2019-09-27] MEDS: Calcium Acetate 667 MG CAP PO SCH ×3 (07:38→17:41)
[2019-09-27] MEDS ORDERED: EPOETIN ALFA-EPBX (ESRD) 4,000 UNIT/ML VIAL SC SCH (09:00)
[2019-09-27] MEDS ORDERED: Heparin 10,000 UNITS/ 10 ML VIAL ONE (11:26)
[2019-09-27] MEDS: Furosemide 40 MG TAB PO SCH (12:26)
[2019-09-27] MEDS: Carvedilol 25 MG TAB PO SCH ×2 (12:26→20:23)
[2019-09-27] MEDS: NIFEdipine XL 30 MG TAB PO SCH ×2 (12:26→20:23)
--- NOTE | 2019-09-27 17:59 | PDOC.HOSPP ---
- Subjective Encounter Date: 09/27/19 Encounter Time: 17:57 Subjective: Pt seen for followup re: hyperkalemia. Had dialysis today, no complaints. - Objective Vital Signs & Weight: Vital Signs (12 hours) Temp Pulse Resp BP Pulse Ox 09/27/19 15:38 98.3 F 71 20 159/71 H 99 09/27/19 12:31 97.8 F 71 20 158/70 H 95 09/27/19 12:26 68 09/27/19 07:35 97.5 F L 68 18 139/62 96 Weight Admit Weight 219 lb Weight 220 lb 6.4 oz I&O: 09/26/19 09/27/19 09/28/19 06:59 06:59 06:59 Intake Total 1660 1200 Output Total 500 1090 Balance 1160 110 Result Diagrams: 09/26/19 04:34 09/26/19 04:35 Additional Labs: Labs and MARs reviewed by me EKG Reviewed by me: Yes (Tele: NSR) Hospitalist ROS - Review of Systems Respiratory: denies: cough, shortness of breath, SOB with excertion, pleuritic pain, wheezing Cardiovascular: denies: chest pain, palpitations, orthopnea, paroxysmal noc. dyspnea, edema, light headedness - Medication Medications: Active Medications Generic Name Dose Route Start Last Admin Trade Name Freq PRN Reason Stop Dose Admin Calcium Acetate 667 mg 09/24/19 12:00 09/27/19 17:41 Phoslo PO 667 mg TID-WM LIAM Administration Carvedilol 25 mg 09/24/19 09:00 09/27/19 12:26 Coreg PO 25 mg BID LIAM Administration Clonidine 0.3 mg 09/24/19 21:00 09/26/19 20:39 Catapres PO 0.3 mg HS LIAM Administration Epoetin Kenny-epbx 8,000 unit 09/27/19 09:00 09/27/19 09:14 Retacrit SC 8,000 unit Q7DAYS LIAM Administration Furosemide 40 mg 09/25/19 09:00 09/27/19 12:26 Lasix PO 40 mg DAILY LIAM Administration Labetalol HCl 10 mg 09/25/19 17:03 09/25/19 17:48 Normodyne SLOW IVP 10 mg Q1H PRN Administration .SBP >180 OR DBP >110 Nifedipine 30 mg 09/24/19 09:00 09/27/19 12:26 Procardia Xl PO 30 mg BID LIAM Administration - Exam General Appearance: awake alert Eye: anicteric sclera ENT: normocephalic atraumatic Neck: supple Heart: RRR, no gallops, no rubs Respiratory: CTAB Gastrointestinal: soft, non-tender Musculoskeletal: normal tone, normal strength Psychiatric: normal affect, normal behavior Hosp A/P - Plan - Assessment (1) Hyperkalemia Code(s): E87.5 - HYPERKALEMIA Status: Acute (2) Anemia of renal disease Code(s): D63.1 - ANEMIA IN CHRONIC KIDNEY DISEASE Status: Chronic (3) ESRD needing dialysis Status: Chronic (4) Hypertension Code(s): I10 - ESSENTIAL (PRIMARY) HYPERTENSION Status: Chronic Qualifiers: Hypertension type: essential hypertension Qualified Code(s): I10 - Essential (primary) hypertension - Plan Pt had dialysis today. Check AM labs. Will need outpt dialysis arranged.
[2019-09-27] MEDS: READ PPD TEST SITE PO SCH (18:01)
[2019-09-27] MEDS: cloNIDine 0.3 MG TAB PO SCH (20:23)
[2019-09-28 04:34] LABS: #Basophils 0.1 thou/uL (0.0-0.2); #Eosinphils 0.6 thou/uL (0.0-0.7); #Monocytes 0.6 thou/uL (0.11-0.59); #Neutrophils 3.5 thou/uL (1.40-6.50); %Basophils 0.9 % (0.0-1.0); %Eosinophils 9.4 % (0.0-10.0); %Lymphocytes 29.2 % (21.0-51.0); %Monocytes 8.3 % (0.0-10.0); %Neutrophils 52.2 % (42.0-75.0); Hemoglobin 8.1 g/dL (12.0-16.0); Mean Corpuscular HGB CONC 33.1 g/dL (32.0-36.0); Mean Corpuscular Hemoglobin 32.3 pg (27.0-31.0); Mean Corpuscular Volume 97.4 fL (78.0-98.0); Mean Platelet Volume 8.1 fL (7.4-10.4); Platelet Count 138 thou/uL (130-400); RBC Distribution Width 12.4 % (11.5-14.5); Red Blood Cell (RBC) Count 2.52 mill/uL (4.20-5.40); White Blood Cell (WBC) Count 6.7 thou/uL (4.8-10.8)
[2019-09-28 04:58] LABS: Anion Gap 11 mmol/L (10-20); BUN (Urea Nitrogen) 50 mg/dL (9.8-20.1); Calc. Creatinine Clearance 20 mL/min (70-130); Calcium 7.5 mg/dL (7.8-10.44); Carbon Dioxide 25 mmol/L (22-29); Chloride 106 mmol/L (98-107); Estimated GFR-MDRD 9; Glucose 97 mg/dL (70-105); Potassium 5.2 mmol/L (3.5-5.1); Sodium 137 mmol/L (136-145)
[2019-09-28] MEDS: Carvedilol 25 MG TAB PO SCH ×2 (07:39→20:54)
[2019-09-28] MEDS: Calcium Acetate 667 MG CAP PO SCH ×3 (07:39→17:09)
[2019-09-28] MEDS: NIFEdipine XL 30 MG TAB PO SCH ×2 (07:39→20:53)
[2019-09-28] MEDS: Furosemide 40 MG TAB PO SCH (07:39)
[2019-09-28] MEDS: READ PPD TEST SITE PO SCH (07:40)
--- NOTE | 2019-09-28 18:45 | PDOC.HOSPP ---
- Subjective Encounter Date: 09/28/19 Encounter Time: 09:40 Subjective: Pt seen for followup re: hyperkalemia. Feels day, no new complaints. - Objective Vital Signs & Weight: Vital Signs (12 hours) Temp Pulse Resp BP Pulse Ox 09/28/19 15:30 98 F 68 19 164/74 H 98 09/28/19 11:08 98.2 F 69 18 145/67 H 97 09/28/19 07:35 97.8 F 69 18 140/67 97 Weight Admit Weight 219 lb Weight 207 lb 14.4 oz I&O: 09/27/19 09/28/19 09/29/19 06:59 06:59 06:59 Intake Total 1200 1500 720 Output Total 1090 1850 1800 Balance 110 -350 -1080 Result Diagrams: 09/28/19 04:16 09/28/19 04:16 Additional Labs: Labs and MARs reviewed by me EKG Reviewed by me: Yes (Tele: NSR) Hospitalist ROS - Review of Systems Cardiovascular: denies: chest pain, palpitations, orthopnea, paroxysmal noc. dyspnea, edema, light headedness Gastrointestinal: denies: nausea, vomiting, abdominal pain, diarrhea, constipation, melena, hematochezia Neurological: denies: weakness, numbness, incoordination, change in speech, confusion, seizures - Medication Medications: Active Medications Generic Name Dose Route Start Last Admin Trade Name Freq PRN Reason Stop Dose Admin Calcium Acetate 667 mg 09/24/19 12:00 09/28/19 17:09 Phoslo PO 667 mg TID-WM LIAM Administration Carvedilol 25 mg 09/24/19 09:00 09/28/19 07:39 Coreg PO 25 mg BID LIAM Administration Clonidine 0.3 mg 09/24/19 21:00 09/27/19 20:23 Catapres PO 0.3 mg HS LIAM Administration Epoetin Kenny-epbx 8,000 unit 09/27/19 09:00 09/27/19 09:14 Retacrit SC 8,000 unit Q7DAYS LIAM Administration Furosemide 40 mg 09/25/19 09:00 09/28/19 07:39 Lasix PO 40 mg DAILY LIAM Administration Labetalol HCl 10 mg 09/25/19 17:03 09/25/19 17:48 Normodyne SLOW IVP 10 mg Q1H PRN Administration .SBP >180 OR DBP >110 Nifedipine 30 mg 09/24/19 09:00 09/28/19 07:39 Procardia Xl PO 30 mg BID LIAM Administration - Exam General - other findings: Obese Eye: anicteric sclera ENT: moist mucosa Neck: supple, no JVD Heart: RRR Respiratory: CTAB Gastrointestinal: soft, non-tender Extremities: no edema Musculoskeletal: normal tone Psychiatric: normal affect, normal behavior Hosp A/P - Plan - Assessment (1) Hyperkalemia Code(s): E87.5 - HYPERKALEMIA Status: Acute (2) Anemia of renal disease Code(s): D63.1 - ANEMIA IN CHRONIC KIDNEY DISEASE Status: Chronic (3) ESRD needing dialysis Status: Chronic (4) Hypertension Code(s): I10 - ESSENTIAL (PRIMARY) HYPERTENSION Status: Chronic Qualifiers: Hypertension type: essential hypertension Qualified Code(s): I10 - Essential (primary) hypertension - Plan potassium improved to 5.2 today. Will need dialysis chair.
[2019-09-28] MEDS: cloNIDine 0.3 MG TAB PO SCH (20:53)
[2019-09-29 04:43] LABS: #Basophils 0.1 thou/uL (0.0-0.2); #Eosinphils 0.4 thou/uL (0.0-0.7); #Lymphocytes 1.4 thou/uL (1.20-3.40); #Monocytes 0.4 thou/uL (0.11-0.59); #Neutrophils 2.4 thou/uL (1.40-6.50); %Basophils 1.1 % (0.0-1.0); %Eosinophils 9.3 % (0.0-10.0); %Lymphocytes 29.6 % (21.0-51.0); %Monocytes 8.4 % (0.0-10.0); %Neutrophils 51.7 % (42.0-75.0); Hemoglobin 8.1 g/dL (12.0-16.0); Mean Corpuscular HGB CONC 34.1 g/dL (32.0-36.0); Mean Corpuscular Volume 96.8 fL (78.0-98.0); Mean Platelet Volume 8.1 fL (7.4-10.4); Platelet Count 136 thou/uL (130-400); RBC Distribution Width 12.3 % (11.5-14.5); Red Blood Cell (RBC) Count 2.44 mill/uL (4.20-5.40); White Blood Cell (WBC) Count 4.7 thou/uL (4.8-10.8)
[2019-09-29 05:04] LABS: Anion Gap 13 mmol/L (10-20); BUN (Urea Nitrogen) 52 mg/dL (9.8-20.1); Calc. Creatinine Clearance 17 mL/min (70-130); Calcium 7.5 mg/dL (7.8-10.44); Carbon Dioxide 22 mmol/L (22-29); Chloride 107 mmol/L (98-107); Estimated GFR-MDRD 8; Glucose 97 mg/dL (70-105); Potassium 5.4 mmol/L (3.5-5.1); Sodium 137 mmol/L (136-145)
[2019-09-29] MEDS: Calcium Acetate 667 MG CAP PO SCH ×3 (09:29→18:43)
[2019-09-29 14:24] VITALS: BMI 38.2
[2019-09-29] MEDS: Carvedilol 25 MG TAB PO SCH ×2 (17:06→19:51)
[2019-09-29] MEDS: Labetalol HCl 100 MG/20 ML VIAL SLOW IVP PRN ×2 (17:08→20:58)
[2019-09-29] MEDS: NIFEdipine XL 30 MG TAB PO SCH ×2 (17:17→19:52)
[2019-09-29] MEDS: cloNIDine 0.3 MG TAB PO SCH (17:21)
[2019-09-29] MEDS: Furosemide 40 MG TAB PO SCH (18:14)
--- NOTE | 2019-09-29 19:02 | PDOC.HOSPP ---
- Subjective Encounter Date: 09/29/19 Encounter Time: 09:00 Subjective: Pt seen for followup re: hyperkalemia. Feels well. - Objective Vital Signs & Weight: Vital Signs (12 hours) Temp Pulse Resp BP BP BP Pulse Ox 09/29/19 18:41 78 183/79 H 09/29/19 17:21 206/88 H 09/29/19 17:08 93 232/97 H 09/29/19 17:03 98.5 F 93 16 232/97 H 97 09/29/19 11:39 98.3 F 71 16 177/77 H 98 09/29/19 09:25 98.5 F 68 16 161/73 H 98 Weight Admit Weight 219 lb Weight 209 lb 7.026 oz I&O: 09/28/19 09/29/19 09/30/19 06:59 06:59 06:59 Intake Total 1500 1200 720 Output Total 1850 2750 2500 Balance -312 -2981 -6575 Result Diagrams: 09/29/19 04:21 09/29/19 04:21 Additional Labs: Labs and MARs reviewed by me EKG Reviewed by me: Yes (Tele: sinus rhythm) Hospitalist ROS - Review of Systems Constitutional: denies: fever, chills, sweats, weakness, malaise Cardiovascular: denies: chest pain, palpitations, orthopnea, edema, light headedness - Medication Medications: Active Medications Generic Name Dose Route Start Last Admin Trade Name Freq PRN Reason Stop Dose Admin Calcium Acetate 667 mg 09/24/19 12:00 09/29/19 18:43 Phoslo PO 667 mg TID-WM LIAM Administration Carvedilol 25 mg 09/24/19 09:00 09/29/19 17:06 Coreg PO Not Given BID LIAM Clonidine 0.3 mg 09/24/19 21:00 09/29/19 17:21 Catapres PO 0.3 mg HS LIAM Administration Epoetin Kenny-epbx 8,000 unit 09/27/19 09:00 09/27/19 09:14 Retacrit SC 8,000 unit Q7DAYS LIAM Administration Furosemide 40 mg 09/25/19 09:00 09/29/19 18:14 Lasix PO Not Given DAILY LIAM Labetalol HCl 10 mg 09/25/19 17:03 09/29/19 17:08 Normodyne SLOW IVP 10 mg Q1H PRN Administration .SBP >180 OR DBP >110 Nifedipine 30 mg 09/24/19 09:00 09/29/19 17:17 Procardia Xl PO Not Given BID LIAM - Exam General - other findings: Obese Eye: anicteric sclera ENT: moist mucosa Neck: supple Heart: RRR Respiratory: CTAB Gastrointestinal: soft, non-tender Neurological: no weakness Psychiatric: normal affect, normal behavior Hosp A/P - Plan - Assessment (1) Hyperkalemia Code(s): E87.5 - HYPERKALEMIA Status: Acute (2) Anemia of renal disease Code(s): D63.1 - ANEMIA IN CHRONIC KIDNEY DISEASE Status: Chronic (3) ESRD needing dialysis Status: Chronic (4) Hypertension Code(s): I10 - ESSENTIAL (PRIMARY) HYPERTENSION Status: Chronic Qualifiers: Hypertension type: essential hypertension Qualified Code(s): I10 - Essential (primary) hypertension - Plan potassium 5.4 today Pt to have dialysis today. Will need dialysis chair, case management involved.
[2019-09-30] MEDS: Labetalol HCl 100 MG/20 ML VIAL SLOW IVP PRN ×2 (00:33→16:02)
[2019-09-30 04:18] LABS: #Eosinphils 0.3 thou/uL (0.0-0.7); #Lymphocytes 1.7 thou/uL (1.20-3.40); #Monocytes 0.6 thou/uL (0.11-0.59); #Neutrophils 3.9 thou/uL (1.40-6.50); %Basophils 0.6 % (0.0-1.0); %Eosinophils 4.5 % (0.0-10.0); %Lymphocytes 25.8 % (21.0-51.0); %Monocytes 8.6 % (0.0-10.0); %Neutrophils 60.6 % (42.0-75.0); Hemoglobin 8.9 g/dL (12.0-16.0); Mean Corpuscular HGB CONC 32.7 g/dL (32.0-36.0); Mean Corpuscular Hemoglobin 31.7 pg (27.0-31.0); Mean Corpuscular Volume 96.9 fL (78.0-98.0); Mean Platelet Volume 8.2 fL (7.4-10.4); Platelet Count 146 thou/uL (130-400); RBC Distribution Width 12.3 % (11.5-14.5); Red Blood Cell (RBC) Count 2.79 mill/uL (4.20-5.40); White Blood Cell (WBC) Count 6.4 thou/uL (4.8-10.8)
[2019-09-30 04:40] LABS: Anion Gap 15 mmol/L (10-20); BUN (Urea Nitrogen) 24 mg/dL (9.8-20.1); Calc. Creatinine Clearance 25 mL/min (70-130); Calcium 8.2 mg/dL (7.8-10.44); Carbon Dioxide 24 mmol/L (22-29); Chloride 105 mmol/L (98-107); Estimated GFR-MDRD 13; Glucose 97 mg/dL (70-105); Potassium 4.9 mmol/L (3.5-5.1); Sodium 139 mmol/L (136-145)
[2019-09-30] MEDS: Carvedilol 25 MG TAB PO SCH ×2 (09:09→20:03)
[2019-09-30] MEDS: Furosemide 40 MG TAB PO SCH (09:09)
[2019-09-30] MEDS: NIFEdipine XL 30 MG TAB PO SCH (09:09)
[2019-09-30] MEDS: Calcium Acetate 667 MG CAP PO SCH ×3 (09:09→15:59)
[2019-09-30] MEDS ORDERED: NIFEdipine XL 30 MG TAB PO SCH (18:00)
--- NOTE | 2019-09-30 18:53 | PDOC.HOSPP ---
- Subjective Encounter Date: 09/30/19 Encounter Time: 09:20 Subjective: Pt seen for followup re: hypertensive urgency. Had headache when blood pressures were elevated. - Objective Vital Signs & Weight: Vital Signs (12 hours) Temp Pulse Resp BP BP Pulse Ox 09/30/19 18:06 188/81 H 09/30/19 16:01 184/81 H 09/30/19 15:05 98.7 F 69 18 175/79 H 96 09/30/19 13:13 165/72 H 09/30/19 11:26 98.6 F 67 16 153/67 H 96 09/30/19 07:24 98.9 F 66 18 133/66 97 Weight Admit Weight 219 lb Weight 205 lb 8 oz I&O: 09/29/19 09/30/19 10/01/19 06:59 06:59 06:59 Intake Total 1200 870 480 Output Total 2750 3500 Balance -1550 -2630 480 Result Diagrams: 09/30/19 03:57 09/30/19 03:57 Additional Labs: Labs and MARs reviewed by me EKG Reviewed by me: Yes (Tele: NSR) Hospitalist ROS - Review of Systems Cardiovascular: denies: chest pain, palpitations, orthopnea, paroxysmal noc. dyspnea, edema, light headedness Gastrointestinal: denies: nausea, vomiting, abdominal pain, diarrhea, constipation, melena, hematochezia Neurological: reports: other (headache) - Medication Medications: Active Medications Generic Name Dose Route Start Last Admin Trade Name Freq PRN Reason Stop Dose Admin Calcium Acetate 667 mg 09/24/19 12:00 09/30/19 15:59 Phoslo PO 667 mg TID-WM LIAM Administration Carvedilol 25 mg 09/24/19 09:00 09/30/19 09:09 Coreg PO 25 mg BID LIAM Administration Clonidine 0.3 mg 09/24/19 21:00 09/29/19 17:21 Catapres PO 0.3 mg HS LIAM Administration Epoetin Kenny-epbx 8,000 unit 09/27/19 09:00 09/27/19 09:14 Retacrit SC 8,000 unit Q7DAYS LIAM Administration Furosemide 40 mg 09/25/19 09:00 09/30/19 09:09 Lasix PO 40 mg DAILY LIAM Administration Labetalol HCl 10 mg 09/25/19 17:03 09/30/19 16:02 Normodyne SLOW IVP 10 mg Q1H PRN Administration .SBP >180 OR DBP >110 Nifedipine 30 mg 09/30/19 18:00 09/30/19 18:06 Procardia Xl PO 09/30/19 20:00 30 mg NOW LIAM Administration - Exam General - other findings: Obese ENT: normocephalic atraumatic Neck: supple, symmetric Heart: RRR, no murmur Respiratory: CTAB, normal chest expansion Gastrointestinal: soft, normal bowel sounds Extremities: no cyanosis Neurological: cranial nerve grossly intact, normal sensation to touch, no weakness, no focal deficits Psychiatric: normal affect, normal behavior Hosp A/P - Plan - Assessment (1) Hypertensive urgency Code(s): E87.5 - HYPERKALEMIA Status: Acute (2) Anemia of renal disease Code(s): D63.1 - ANEMIA IN CHRONIC KIDNEY DISEASE Status: Chronic (3) ESRD needing dialysis Status: Chronic (4) Hypertension Code(s): I10 - ESSENTIAL (PRIMARY) HYPERTENSION Status: Chronic Qualifiers: Hypertension type: essential hypertension Qualified Code(s): I10 - Essential (primary) hypertension (5) Hyperkalemia Code(s): E87.5 - HYPERKALEMIA Status: Resolved - Plan Increase nifedipine to 60 mg BID. Pt has dialysis chair MWF. Will discharge once blood pressure improves.
[2019-09-30] MEDS: cloNIDine 0.3 MG TAB PO SCH (20:03)
[2019-09-30] MEDS: NIFEdipine XL 60 MG TAB PO SCH (20:03)
--- NOTE | 2019-10-01 07:30 | DIS ---
DATE OF ADMISSION: 09/25/2019 DATE OF DISCHARGE: 09/30/2019 PRIMARY CARE PROVIDER: [facility]. DISCHARGE DIAGNOSES: 1. Hyperkalemia. 2. End-stage renal disease, needing hemodialysis. 3. Metabolic acidosis. 4. Hypertensive urgency. CONDITION OF PATIENT ON THE DAY OF DISCHARGE: Stable. I assessed Ms. Medrano on the day of discharge. She denies any chest pain or shortness of breath. Vital signs are stable. S1 and S2 are heard, regular. Lungs are clear to auscultation bilaterally. DISCHARGE MEDICATIONS: 1. Coreg 25 mg 2 times a day. 2. Vitamin D 1000 units daily. 3. Clonidine 0.3 mg at bedtime. 4. Lasix 40 mg daily. 5. Nifedipine ER 30 mg 2 times a day. 6. Nitroglycerin p.r.n. 7. Epoetin deondre 8000 units every seven days. 8. PhosLo 667 mg 3 times a day. CONSULTATIONS DURING THIS HOSPITALIZATION: Nephrology, Dr. Aleks Montilla. POST ACUTE CARE FOLLOWUP: With primary care provider in 3 days, with Dr. Aleks Montilla in 2 weeks and outpatient hemodialysis. DIET: Renal diet. ACTIVITY: No restrictions. DISCHARGE DESTINATION: Home. HOSPITAL COURSE: Ms. Medrano is a pleasant 59-year-old lady, who was admitted to [facility] on 09/24/2019, for hyperkalemia and end-stage renal disease needing dialysis. She was seen by Nephrology Service. She was initiated on dialysis. Arrangements were made for dialysis as an outpatient at [facility]. She has been cleared for discharge by Nephrology Service. Please note that on the day prior to discharge, her antihypertensives were held prior to dialysis and she had an episode of hypertensive urgency that night. Her blood pressures are stable on the day of discharge. On the day of discharge, she has white count of 6400, hemoglobin 8.9, platelet count 146,000. Sodium 139, potassium 4.9, blood urea nitrogen 24, and creatinine 3.64. At the time of this dictation, HIV-1 quantitative test is pending. She is advised to follow up with Dr. Aleks Montilla for the result. TIME SPENT: Total amount of time spent coordinating this discharge: 32 minutes. Job ID: [id number]
[2019-10-01] MEDS: Carvedilol 25 MG TAB PO SCH (08:30)
[2019-10-01] MEDS: NIFEdipine XL 60 MG TAB PO SCH (08:30)
[2019-10-01] MEDS: Calcium Acetate 667 MG CAP PO SCH ×2 (08:30→11:47)
[2019-10-01] MEDS: Furosemide 40 MG TAB PO SCH (08:30)
[2019-10-01 11:47] VITALS: BP 121/58; TEMP 98.7
--- NOTE | 2019-10-01 19:16 | DIS ---
DATE OF ADMISSION: 09/25/2019 DATE OF DISCHARGE: 10/01/2019 PRIMARY CARE PROVIDER: [facility]. DISCHARGE DIAGNOSES: 1. Hyperkalemia. 2. Hypertensive urgency. 3. End-stage renal disease needing dialysis. 4. Metabolic acidosis. CONDITION OF PATIENT ON THE DAY OF DISCHARGE: Stable. I assessed Ms. Medrano on the day of discharge. She denies any chest pain or shortness of breath. Vital signs are stable. S1 and S2 are heard, regular. Lungs are clear to auscultation bilaterally. Please note that I dictated a discharge summary on Ms. Medrano on 09/30/2019. The patient was not discharged that day due to hypertensive urgency. She is being discharged on 10/01/2019. DISCHARGE MEDICATIONS: Her nifedipine dose was increased to 60 mg 2 times a day. Otherwise, no change was made to her discharge medications as dictated in my discharge summary dated 09/30/2019. HOSPITAL COURSE: As dictated in my discharge summary dated 09/30/2019. POST-ACUTE CARE FOLLOWUP: With primary care provider in 3 days and with her head shipper in 2 weeks. DIET: Renal diet. ACTIVITY: No restrictions. DISCHARGE DESTINATION: Home. TIME SPENT: Total amount of time spent coordinating this discharge: 18 minutes. Job ID: [id number]
--- NOTE | 2019-10-02 04:37 | PQF ---
SHASHI AMAYA DAVID [id number] [facility]-283 [id number] CLINICAL DOCUMENTATION CLARIFICATION FORM: POST DISCHARGE Addendum to original discharge summary date: ____ Late entry note date: __ DATE:10/02/2019 ATTN: Edgar Ramos Please exercise your independent, professional judgment in responding to the clarification form. Clinical indicators are provided on the bottom of this form for your review Please check appropriate box(s) to clarify if the following diagnosis has been ruled in or ruled out: Acute Renal Failure [ ] Ruled in diagnosis [ ] Continue to treat [ ] Resolved [ X ] Ruled out diagnosis [ ] Cannot rule out diagnosis [ ] Other diagnosis [ ] Unable to determine In addition, please specify: Present on Admission (POA): [ ] Yes [ ] No [ ] Unable to determine For continuity of documentation, please document condition throughout progress notes and discharge summary. Thank You. CLINICAL INDICATORS - SIGNS / SYMPTOMS / LABS Laboratory Chemistry 09/24 GFR 7, BUN 75, Creatinine 6.18 Laboratory Chemistry 09/24 GFR 7, BUN 76, Creatinine 6.23 Laboratory Chemistry 09/24 Potassium 6.0 RISK FACTORS ED notes p109/25 Hyperkalemia ED notes p109/25 Acute on chronic renal failure Hospitalist H&P p1 09/24 HTN Hospitalist H&P p1 09/24 Anemia of Chronic disease Hospitalist PN p3 09/25 CKD 5 TREATMENTS OCT 31 IV Lasix OCT 31 1amp BiCarb Hemodialysis 09/25 Hospitalist PN p4 09/25 Monitor BP and electrolytes after dialysis (This form is maintained as a part of the permanent medical record) 2014 [employer]. All Rights Reserved [email or web address]
[2019-10-02 11:11] LABS: HIV-1 Quantitative, RNA PCR <20 copies/mL (.)
== END 2019-10-01 14:30 | disposition home or self-care (01) | DRG 640 ==
LOC: ERS 20:53 → 2NO 09-24 01:18 → OBSVTOIN 09-25 11:25
PROVIDERS: ADMIT Hospitalist; ATTEND Emergency Medicine
PROC: 5A1D70Z Performance of Urinary Filtration, Intermittent, Less than 6 Hours Per Day (ICD-10-PCS; principal; 2019-09-26)
DX: E87.5 Hyperkalemia (principal); N18.6 End stage renal disease; I12.0 Hypertensive chronic kidney disease with stage 5 chronic kidney disease or end stage renal disease; I16.0 Hypertensive urgency; E87.2 Acidosis; D63.1 Anemia in chronic kidney disease; Z99.2 Dependence on renal dialysis; Z79.899 Other long term (current) drug therapy
CPT/HCPCS: 36415; 36416; 71045; 80048; 80053; 82550; 84484; 85007; 85025; 85027; 86580; 86704; 86706; 86803; 87340; 87536; 90935; 93005; 96360; 96361; G0257; J1644; J1940; Q5105

== ENCOUNTER 2019-11-05 06:58 | Day surgery (SDC) | payer MEDICARE ==
[2019-11-04 11:40] VITALS: BMI 37.3
[2019-11-05 08:59] VITALS: BP 136/74; TEMP 98.8
[2019-11-05] MEDS ORDERED: FLU VACC QS2019-20(6MOS UP)/PF 60 MCG/0.5 ML SYRINGE IM ONE (09:00)
--- NOTE | 2019-11-05 09:10 | SPC ---
Left upper extremity dialysis fistulogram Sonographic guided vascular access left upper extremity HISTORY: Renal failure. Difficulty and vascular access left upper arm fistula. FINDINGS: After explaining the procedure and answering all questions, left upper extremity was preppe d and draped in usual sterile fashion sonographic evaluation of the left upper arm fistula shows the arteriovenous anastomosis to be widely patent. The most peripheral portion of the Hussein fistula is distended. The primary cephalic fistula vein lies deep within the subcutaneous tissues of the arm at the level of the mid to distal humerus, with up to 1.5 cm subcutaneous fat between the skin lackey rface and primary cephalic vein outflow. A more superficial, smaller venous branch lies immediately deep to the skin surface. Fluoroscopy time 0.7 minutes. Sterile technique, buffered local anesthesia, sonographic guidance, and a 22-gauge needle were used t o carefully access the most peripheral portion of the Hussein fistula, immediately central to the arterial anastomosis, in the area of dilatation. A 4 Arabic micropuncture sheath was carefully placed for serial imaging. There is vigorous fistula flow throughout the cephalic fistula. The most flow is through the largest dilated cephalic vein that is deep within the subcutaneous tissues. Good venous outflow with patent superior vena cava. A large collateral vein arising just lateral and anterior from the primary fistula at the level of th e distal humeral metaphysis provides the smaller, more superficial collaterals seen on sonogram. Multiple additional smaller collaterals are also present, projecting medially and laterally from the primary cephalic vein. The brachial/basilic veins are faintly opacified with the cysts smaller collaterals. Sheath was removed and hemostasis obtained using direct pressure. Patient tolerated the procedure wel l and was dismissed in good condition. IMPRESSION: Good vascular flow throughout the left upper arm Hussein fistula. The primary cephalic fis birgit vein lies very deep within the subcutaneous tissues. A prominent, yet smaller collateral vein is present within the more superficial subcutaneous tissue at the level of the bicep. Multiple additional smaller collaterals arise from the the cephalic fistula at the level of the dista l humeral metaphysis. Ligation of these collaterals may significantly improve access to the cephalic fistula (although, as detailed above, it lies very deep within the subcutaneous tissues).
[2019-11-05] MEDS ORDERED: Iopamidol 300 61% 100 ML VIAL FS ONE (14:46)
== END 2019-11-05 08:50 | disposition home or self-care (01) ==
LOC: SPEC 06:58
PROVIDERS: ATTEND Internal Medicine Nephrology
PROC: B51W1ZZ Fluoroscopy of Dialysis Shunt/Fistula using Low Osmolar Contrast (ICD-10-PCS; principal; 2019-11-05)
DX: I77.0 Arteriovenous fistula, acquired (principal); I12.0 Hypertensive chronic kidney disease with stage 5 chronic kidney disease or end stage renal disease; E11.22 Type 2 diabetes mellitus with diabetic chronic kidney disease; N18.6 End stage renal disease; M32.9 Systemic lupus erythematosus, unspecified; K21.9 Gastro-esophageal reflux disease without esophagitis; F41.9 Anxiety disorder, unspecified; Z79.899 Other long term (current) drug therapy; Z86.73 Personal history of transient ischemic attack (TIA), and cerebral infarction without residual deficits; Z88.8 Allergy status to other drugs, medicaments and biological substances
CPT/HCPCS: 36901; Q9967

== ENCOUNTER 2020-05-19 07:36 | Outpatient (CLI) | payer MEDICARE, OTHER ==
[2020-05-20 12:46] LABS: SARS-CoV-2 MS2 Positive; SARS-CoV-2 N Gene Negative; SARS-CoV-2 S Gene Negative; SARS-CoV-2 by NAA Not Detected (NotDetected); SARS-CoV-2 orf1ab Negative
== END 2020-05-19 07:37 | disposition home or self-care (01) ==
LOC: LABBT 07:36
PROVIDERS: ATTEND Specialist
DX: Z01.818 Encounter for other preprocedural examination (principal); Z20.828 Contact with and (suspected) exposure to other viral communicable diseases
CPT/HCPCS: 93005; U0003; 87635; 93010

== ENCOUNTER 2020-05-24 12:19 | Day surgery (SDC) | payer MEDICARE ==
[2020-05-19 13:46] VITALS: BMI 40.6
--- NOTE | 2020-05-23 15:09 | HP ---
HISTORY OF PRESENT ILLNESS: Gin Medrano is a 59-year-old female, dialyzes in [facility] on Saturday, Saturday and Saturday, started dialysis this year. I placed a fistula in 2015, left arm primary fistula, perforating branch of the antecubital vein, inflow proximal radial artery, outflow cephalic vein only, no communication in basilic vein noted. She did not need dialysis until this year, but they could not access it. She is morbidly obese, 227 pounds, 62 inches, 41 BMI. Fistulogram in November 2019 reveals cephalic vein outflow with large collaterals. She does have a history of coronary artery disease. She was seen by Dr. Avila in the past. She reported at that time she was having chest pain with hemodialysis. She saw Dr. Avila in December. He recommended a PET scan due to her ischemic rest pain. It was felt that she had coronary artery disease of the [place] arteries of the [place] heart with stable angina pectoris. She is noted to have severe diffuse LAD disease, not amenable to revascularization. RCA and left circumflex systems had minimal disease. It was felt that she should re-stratify with a PET scan to see if she has ischemia in the RCA, left circumflex territory. If she fails medical therapy, she will need a repeat left heart catheterization, but she did not follow up with Dr. Avila. I have talked to Dr. Avila today. The patient has been noncompliant in her Cardiology followup. After Cardiology clearance and evaluation, plan would be for a left upper arm cephalic vein transposition fistula. She understands risks and benefits, consents. We will plan this under regional TIVA versus general per Anesthesia. Recommendations, await her PET scan and completion of her cardiac followup. I have communicated this to [facility], where she dialyzes on Saturday, Saturday and Saturday. FAMILY HISTORY: Father , myocardial infarction and diabetes. Mother , diabetes and hypertension. Siblings alive, diabetes and hypertension. The patient's son of kidney failure, had a history of hypertension and diabetes. Another son is of kidney failure. Daughter of kidney failure. SOCIAL HISTORY: Tobacco, non. Alcohol use, none. Drug use, none. The patient is disabled, . REVIEW OF SYSTEMS: 10-point review of systems unremarkable except for coronary artery disease as above. History of mild stroke in July 2014. End-stage renal disease. PAST SURGICAL HISTORY: Cholecystectomy in 1985, heel spurs in 1994, heart catheterization in June 2016, heart catheterization in 2010, tubal ligation in 1984, and left AVF on 06/29/2016. PHYSICAL EXAMINATION: VITAL SIGNS: Weight 227 pounds, height 62 inches, 41 BMI, blood pressure 142/65, pulse 81, and temperature 97.8 degrees. HEAD, EYES, EARS, NOSE, AND THROAT: Unremarkable. LUNGS: Clear to auscultation. CARDIAC: Regular rate and rhythm without murmur or gallop. ABDOMEN: Soft, obese, and nontender. EXTREMITIES: Unremarkable. Left upper extremity fistula, good thrill and bruit palpable. Fistula in the distal third upper arm. Morbidly obese upper arm. ASSESSMENT/PLAN: 1. End-stage renal disease. They have not been able to access her fistula. I have placed a hemodialysis catheter, which she has been using for hemodialysis access. We would recommend superficialization and transposition of her cephalic vein as an outpatient once cardiac clearance is obtained. She understands risks and benefits, consents. 2. Coronary artery disease, followed by Dr. Avila. 3. Morbid obesity with metabolic syndrome. Job ID: [id number]
[2020-05-24 13:15] LABS: #Eosinphils 0.1 thou/uL (0.0-0.7); #Lymphocytes 1.8 thou/uL (1.20-3.40); #Monocytes 0.9 thou/uL (0.11-0.59); #Neutrophils 4.4 thou/uL (1.40-6.50); %Basophils 0.6 % (0.0-1.0); %Eosinophils 0.8 % (0.0-10.0); %Lymphocytes 25.5 % (21.0-51.0); %Monocytes 12.5 % (0.0-10.0); %Neutrophils 60.6 % (42.0-75.0); Hemoglobin 11.1 g/dL (12.0-16.0); Mean Corpuscular HGB CONC 32.7 g/dL (32.0-36.0); Mean Corpuscular Hemoglobin 32.5 pg (27.0-31.0); Mean Corpuscular Volume 99.3 fL (78.0-98.0); Mean Platelet Volume 7.5 fL (7.4-10.4); Platelet Count 200 thou/uL (130-400); RBC Distribution Width 14.5 % (11.5-14.5); Red Blood Cell (RBC) Count 3.43 mill/uL (4.20-5.40); White Blood Cell (WBC) Count 7.2 thou/uL (4.8-10.8)
[2020-05-24 13:32] LABS: Anion Gap 17 mmol/L (10-20); BUN (Urea Nitrogen) 44 mg/dL (9.8-20.1); Calc. Creatinine Clearance 12 mL/min (70-130); Calcium 8.3 mg/dL (7.8-10.44); Carbon Dioxide 27 mmol/L (22-29); Chloride 100 mmol/L (98-107); Estimated GFR-MDRD 5; Glucose 111 mg/dL (70-105); Sodium 140 mmol/L (136-145)
[2020-05-24] MEDS ORDERED: Lidocaine 1% PF 5 ML VIAL ONE (14:12)
[2020-05-24] MEDS ORDERED: PHENYLEPHRINE-NS 100 MCG/ML 10 ML SYRINGE ONE (14:12)
[2020-05-24] MEDS ORDERED: PROPOFOL 200 MG/20 ML VIAL ONE (14:12)
[2020-05-24] MEDS ORDERED: Fentanyl 100 MCG/2 ML VIAL ONE ×4 (14:21→17:20)
[2020-05-24] MEDS ORDERED: Bupivacaine PF 0.5% 30 ML VIAL ONE (14:34)
[2020-05-24] MEDS ORDERED: Lidocaine 1% w/Epinephrine 1:100K 20 ML VIAL ONE (14:34)
[2020-05-24] MEDS ORDERED: Heparin 5,000 UNITS/ML VIAL ONE (14:34)
[2020-05-24] MEDS ORDERED: Protamine Sulfate 50 MG/5 ML VIAL ONE (14:34)
[2020-05-24] MEDS ORDERED: Bupivacaine 0.25% HCL 30 ML VIAL ONE (15:23)
[2020-05-24] MEDS ORDERED: Labetalol HCl 100 MG/20 ML VIAL ONE (17:22)
[2020-05-24] MEDS ORDERED: diphenhydrAMINE 50 MG/ML VIAL ONE (17:59)
[2020-05-24] MEDS ORDERED: Promethazine HCl 25 MG/ML VIAL ONE (18:02)
[2020-05-24] MEDS ORDERED: Heparin 1,000 UNITS/ML VIAL ONE (18:25)
--- NOTE | 2020-05-24 22:01 | OP ---
DATE OF PROCEDURE: 05/24/2020 PREOPERATIVE DIAGNOSES: Morbid obesity, end-stage renal disease, and inability to access her fistula in cephalic vein. POSTOPERATIVE DIAGNOSES: Morbid obesity, end-stage renal disease, and inability to access her fistula in cephalic vein. PROCEDURE PERFORMED: Cephalic vein transposition fistula. ANESTHESIA: General, local 0.5% Marcaine 30 mL, 0.25% Marcaine 30 mL, 1% Xylocaine with epinephrine 20 mL, total volume mixture used. DESCRIPTION OF PROCEDURE: The patient was taken to the operating room, where under general anesthesia, left upper extremity was prepared with ChloraPrep and draped in routine fashion. Incision was made from the proximal volar forearm up into the deltopectoral groove, carried down to skin and subcutaneous tissue, unroofing the cephalic vein, dividing branches between 3-0 and 4-0 silk ties and clips. Vein mobilized, marked with a marker. A subcutaneous pocket was created laterally using cautery and the vein transposed to this more superficial location of the fatty tissue, approximated with continuous suture of 3-0 Monocryl x2 and skin with samantha. Sterile dressing applied. The patient tolerated the procedure well. Job ID: [id number]
== END 2020-05-24 19:15 | disposition home or self-care (01) ==
LOC: SDC 12:19
PROVIDERS: ATTEND Specialist
PROC: 05SF0ZZ Reposition Left Cephalic Vein, Open Approach (ICD-10-PCS; principal; 2020-05-24)
DX: I12.0 Hypertensive chronic kidney disease with stage 5 chronic kidney disease or end stage renal disease (principal); E11.22 Type 2 diabetes mellitus with diabetic chronic kidney disease; N18.6 End stage renal disease; I25.10 Atherosclerotic heart disease of native coronary artery without angina pectoris; F32.9 Major depressive disorder, single episode, unspecified; E88.81 Metabolic syndrome and other insulin resistance; E66.01 Morbid (severe) obesity due to excess calories; Z68.41 Body mass index [BMI] 40.0-44.9, adult; Z86.73 Personal history of transient ischemic attack (TIA), and cerebral infarction without residual deficits; Z79.82 Long term (current) use of aspirin; Z79.899 Other long term (current) drug therapy; Z88.8 Allergy status to other drugs, medicaments and biological substances; Z99.2 Dependence on renal dialysis
CPT/HCPCS: 36415; 80048; 85025; J0690; J1200; J1644; J2550; J2704; J2720; J3010; S0020

== ENCOUNTER 2022-08-09 18:29 | Inpatient (IN) | payer OTHER ==
[2022-08-09] MEDS ORDERED: Ondansetron PF 4 MG/2 ML Vial ONE (18:57)
[2022-08-09] MEDS ORDERED: niCARdipine 25 MG/10 ML VIAL ONE (19:21)
[2022-08-09 19:41] LABS: #Eosinphils 0.1 thou/uL (0.0-0.7); #Lymphocytes 1.2 thou/uL (1.20-3.40); #Monocytes 0.5 thou/uL (0.11-0.59); #Neutrophils 9.2 thou/uL (1.40-6.50); %Lymphocytes 11.2 % (21.0-51.0); %Monocytes 4.2 % (0.0-10.0); %Neutrophils 83.7 % (42.0-75.0); Hemoglobin 11.4 g/dL (12.0-16.0); Mean Corpuscular HGB CONC 33.1 g/dL (32.0-36.0); Mean Corpuscular Hemoglobin 33.9 pg (27.0-31.0); Mean Platelet Volume 7.1 fL (7.4-10.4); Platelet Count 231 10x3/uL (130-400); RBC Distribution Width 14.2 % (11.5-14.5); Red Blood Cell (RBC) Count 3.36 mill/uL (4.20-5.40)
[2022-08-09 19:59] LABS: ALT (SGPT) Less than 7 U/L (8-55); AST (SGOT) 12 U/L (5-34); Albumin 3.8 g/dL (3.4-4.8); Alkaline Phosphatase 61 U/L (40-110); Anion Gap 22 mmol/L (10-20); BUN (Urea Nitrogen) 84 mg/dL (9.8-20.1); Calc. Creatinine Clearance 0 mL/min (70-130); Calcium 9.3 mg/dL (7.8-10.44); Carbon Dioxide 21 mmol/L (23-31); Chloride 103 mmol/L (98-107); Estimated GFR 4; Globulin 3.9 g/dL (2.4-3.5); Glucose 130 mg/dL (80-115); Protein, Total 7.7 g/dL (5.8-8.1); Sodium 139 mmol/L (136-145)
[2022-08-09 20:02] LABS: Potassium 6.6 mmol/L (3.5-5.1)
[2022-08-09] MEDS ORDERED: Acetaminophen 650 MG Suppository PR PRN (20:36)
[2022-08-09] MEDS ORDERED: Ondansetron ODT 4 MG TAB PO PRN (20:36)
[2022-08-09] MEDS ORDERED: niCARdipine 25 MG in Sodium Chloride 0.9% 250 ML 250 ML IVPB SCH (20:45)
[2022-08-09] MEDS ORDERED: Morphine 4 MG/ML VIAL SLOW IVP SCH (21:00)
[2022-08-09] MEDS ORDERED: Morphine 4 MG/ML VIAL ONE (21:16)
[2022-08-09] MEDS ORDERED: Calcium Gluc 4.6 MEQ/10 ML (100 MG/ML) ONE (21:16)
[2022-08-09] MEDS ORDERED: Insulin Regular 300 UNITS/3 ML VIAL ONE ×2 (21:16→21:38)
[2022-08-09] MEDS ORDERED: Dextrose 50% Abboject 50 ML SYRINGE SLOW IVP SCH (21:30)
[2022-08-09 22:22] LABS: SARS-CoV-2 NAA Rapid Test Not Detected (NotDetected)
[2022-08-09 22:30] VITALS: BMI 44.6
[2022-08-09] MEDS ORDERED: HumaLOG 300 UNITS/3 ML VIAL SC PRN ×2 (23:24)
[2022-08-09] MEDS ORDERED: Dextrose 5% in Water 1,000 ML IV PRN (23:24)
[2022-08-09 23:31] LABS: Troponin I 0.021 ng/mL (< 0.028)
[2022-08-10] MEDS: Acetaminophen 325 MG TAB PO PRN ×3 (00:57→09:45)
[2022-08-10] MEDS: Ondansetron PF 4 MG/2 ML Vial IVP PRN ×2 (00:59→08:00)
[2022-08-10] MEDS: Heparin 5,000 UNITS/ML VIAL SC SCH ×4 (01:19→20:52)
[2022-08-10] MEDS ORDERED: Morphine 4 MG/ML VIAL SLOW IVP SCH (01:30)
[2022-08-10 01:49] LABS: Troponin I 0.019 ng/mL (< 0.028)
[2022-08-10] MEDS ORDERED: Labetalol HCl 100 MG/20 ML VIAL SLOW IVP SCH (02:45)
[2022-08-10 03:56] LABS: #Eosinphils 0.1 thou/uL (0.0-0.7); #Lymphocytes 1.2 thou/uL (1.20-3.40); #Neutrophils 11.5 thou/uL (1.40-6.50); %Basophils 0.1 % (0.0-1.0); %Eosinophils 0.4 % (0.0-10.0); %Monocytes 7.2 % (0.0-10.0); %Neutrophils 83.4 % (42.0-75.0); Hemoglobin 10.9 g/dL (12.0-16.0); Mean Corpuscular HGB CONC 33.1 g/dL (32.0-36.0); Mean Corpuscular Hemoglobin 33.5 pg (27.0-31.0); Platelet Count 183 10x3/uL (130-400); RBC Distribution Width 14.2 % (11.5-14.5); Red Blood Cell (RBC) Count 3.25 mill/uL (4.20-5.40); White Blood Cell (WBC) Count 13.8 10x3/uL (4.8-10.8)
[2022-08-10 04:22] LABS: Anion Gap 18 mmol/L (10-20); BUN (Urea Nitrogen) 28 mg/dL (9.8-20.1); Calc. Creatinine Clearance 19 mL/min (70-130); Calcium 9.2 mg/dL (7.8-10.44); Carbon Dioxide 24 mmol/L (23-31); Chloride 99 mmol/L (98-107); Estimated GFR 8; Glucose 101 mg/dL (80-115); Magnesium 1.8 mg/dL (1.6-2.6); Potassium 3.9 mmol/L (3.5-5.1); Sodium 137 mmol/L (136-145)
[2022-08-10] MEDS: Labetalol HCl 100 MG/20 ML VIAL SLOW IVP PRN ×2 (08:00→17:04)
[2022-08-10] MEDS: Carvedilol 25 MG TAB PO SCH ×3 (08:27→20:53)
[2022-08-10] MEDS: Amlodipine 10 MG TAB PO SCH ×2 (09:45→13:16)
[2022-08-10] MEDS ORDERED: niCARdipine 40MG In NaCl 40 MG/200 ML BAG IVPB SCH (09:45)
[2022-08-10] MEDS ORDERED: Heparin 10,000 UNITS/ 10 ML VIAL ONE (10:00)
[2022-08-10] MEDS ORDERED: niCARdipine 50 MG in Sodium Chloride 0.9% 250 ML 230 ML IV SCH (10:00)
[2022-08-10] MEDS: Lidocaine 5% Patch TD SCH (20:53)
[2022-08-10] MEDS ORDERED: cloNIDine 0.2 MG TAB PO SCH (21:00)
[2022-08-11] MEDS: Transdermal Patch Removal TOP SCH (08:57)
[2022-08-11] MEDS ORDERED: Heparin 10,000 UNITS/ 10 ML VIAL ONE (09:57)
[2022-08-11] MEDS ORDERED: Cyclobenzaprine 10 MG TAB PO SCH (10:45)
[2022-08-11 12:23] VITALS: TEMP 98.2
[2022-08-11] MEDS: Carvedilol 25 MG TAB PO SCH ×2 (12:40→21:38)
[2022-08-11] MEDS: Heparin 5,000 UNITS/ML VIAL SC SCH ×3 (12:40→21:37)
[2022-08-11] MEDS: Amlodipine 10 MG TAB PO SCH (17:07)
[2022-08-11] MEDS: Cyclobenzaprine 10 MG TAB PO SCH ×2 (17:08→21:38)
[2022-08-11] MEDS: HYDROcodone/Acetaminophen 5/325 mg Tablet PO PRN (17:24)
[2022-08-11] MEDS ORDERED: Gabapentin 100 MG CAP PO SCH (21:00)
[2022-08-11] MEDS: Lidocaine 5% Patch TD SCH (21:38)
[2022-08-11] MEDS: cloNIDine 0.1 MG TAB PO PRN (21:38)
[2022-08-12 05:02] LABS: #Eosinphils 0.2 thou/uL (0.0-0.7); #Lymphocytes 2.3 thou/uL (1.20-3.40); #Neutrophils 4.4 thou/uL (1.40-6.50); %Basophils 0.2 % (0.0-1.0); %Eosinophils 2.6 % (0.0-10.0); %Lymphocytes 29.5 % (21.0-51.0); %Monocytes 12.3 % (0.0-10.0); %Neutrophils 55.4 % (42.0-75.0); Hemoglobin 10.4 g/dL (12.0-16.0); Mean Corpuscular HGB CONC 33.5 g/dL (32.0-36.0); Mean Corpuscular Hemoglobin 34.9 pg (27.0-31.0); Mean Platelet Volume 7.3 fL (7.4-10.4); Platelet Count 154 10x3/uL (130-400); RBC Distribution Width 13.9 % (11.5-14.5); Red Blood Cell (RBC) Count 2.97 mill/uL (4.20-5.40); White Blood Cell (WBC) Count 7.9 10x3/uL (4.8-10.8)
[2022-08-12 05:22] LABS: Anion Gap 14 mmol/L (10-20); BUN (Urea Nitrogen) 35 mg/dL (9.8-20.1); Calc. Creatinine Clearance 17 mL/min (70-130); Calcium 8.6 mg/dL (7.8-10.44); Carbon Dioxide 28 mmol/L (23-31); Chloride 96 mmol/L (98-107); Estimated GFR 7; Glucose 86 mg/dL (80-115); Potassium 4.3 mmol/L (3.5-5.1); Sodium 134 mmol/L (136-145)
[2022-08-12] MEDS ORDERED: Bupropion 150 MG SR TAB PO SCH (09:00)
[2022-08-12] MEDS: Heparin 5,000 UNITS/ML VIAL SC SCH ×2 (09:40→16:10)
[2022-08-12] MEDS: Amlodipine 10 MG TAB PO SCH (09:43)
[2022-08-12] MEDS: Carvedilol 25 MG TAB PO SCH (09:43)
[2022-08-12] MEDS: Cyclobenzaprine 10 MG TAB PO SCH ×2 (09:43→16:11)
[2022-08-12] MEDS: HYDROcodone/Acetaminophen 5/325 mg Tablet PO PRN ×2 (09:52→16:11)
[2022-08-12] MEDS: Transdermal Patch Removal TOP SCH (09:58)
[2022-08-12] MEDS ORDERED: Heparin 10,000 UNITS/ 10 ML VIAL ONE (10:02)
[2022-08-12] MEDS: cloNIDine 0.1 MG TAB PO PRN (16:11)
[2022-08-12 20:09] VITALS: BP 134/86
== END 2022-08-12 19:30 | disposition home or self-care (01) | DRG 640 ==
LOC: ERS 18:29 → CCU 20:39 → 2NO 08-10 18:52
PROVIDERS: ADMIT Internal Medicine; ATTEND Internal Medicine
PROC: 5A1D70Z Performance of Urinary Filtration, Intermittent, Less than 6 Hours Per Day (ICD-10-PCS; principal; 2022-08-09)
DX: E87.70 Fluid overload, unspecified (principal); J96.01 Acute respiratory failure with hypoxia; N18.6 End stage renal disease; I16.1 Hypertensive emergency; I12.0 Hypertensive chronic kidney disease with stage 5 chronic kidney disease or end stage renal disease; E87.20 Acidosis, unspecified; Z20.822 Contact with and (suspected) exposure to COVID-19; I25.10 Atherosclerotic heart disease of native coronary artery without angina pectoris; G89.29 Other chronic pain; M54.9 Dorsalgia, unspecified; M32.9 Systemic lupus erythematosus, unspecified; E11.22 Type 2 diabetes mellitus with diabetic chronic kidney disease; E87.5 Hyperkalemia; K21.9 Gastro-esophageal reflux disease without esophagitis; F41.9 Anxiety disorder, unspecified; R91.8 Other nonspecific abnormal finding of lung field; K86.89 Other specified diseases of pancreas; E78.5 Hyperlipidemia, unspecified; Z95.5 Presence of coronary angioplasty implant and graft; Z99.2 Dependence on renal dialysis; Z86.73 Personal history of transient ischemic attack (TIA), and cerebral infarction without residual deficits; Z88.8 Allergy status to other drugs, medicaments and biological substances; Z79.899 Other long term (current) drug therapy; Z79.82 Long term (current) use of aspirin; Z90.49 Acquired absence of other specified parts of digestive tract
CPT/HCPCS: 36415; 36416; 80048; 83735; 83880; 84484; 85025; 93005; 96374; 96375; J0610; J1644; J1815; J2270; J2405; J7999

== ENCOUNTER 2023-06-26 09:16 | Emergency (ER) | payer MEDICARE, SELFPAY ==
[2023-06-26] MEDS ORDERED: Acetaminophen 500 MG TAB ONE (10:10)
[2023-06-26 10:12] LABS: #Eosinphils 0.2 thou/uL (0.0-0.7); #Monocytes 0.7 thou/uL (0.11-0.59); #Neutrophils 6.3 thou/uL (1.40-6.50); %Basophils 0.5 % (0.0-1.0); %Eosinophils 2.7 % (0.0-10.0); %Lymphocytes 17.6 % (21.0-51.0); %Monocytes 7.6 % (0.0-10.0); %Neutrophils 71.1 % (42.0-75.0); Hematocrit 37.4 % (36.0-47.0); Hemoglobin 11.9 g/dL (12.0-16.0); Mean Corpuscular HGB CONC 31.8 g/dL (32.0-36.0); Mean Corpuscular Hemoglobin 32.5 pg (27.0-31.0); Mean Corpuscular Volume 102.2 fl (78.0-98.0); Mean Platelet Volume 9.3 fL (7.4-10.4); Platelet Count 211 10x3/uL (130-400); RBC Distribution Width 14.5 % (11.5-14.5); Red Blood Cell (RBC) Count 3.66 mill/uL (4.20-5.40); White Blood Cell (WBC) Count 8.8 10x3/uL (4.8-10.8)
[2023-06-26 10:35] LABS: Troponin I Less than 0.010 ng/mL (< 0.028)
[2023-06-26 10:45] LABS: ALT (SGPT) 13 U/L (8-55); AST (SGOT) 20 U/L (5-34); Albumin 3.9 g/dL (3.4-4.8); Alkaline Phosphatase 69 U/L (40-110); Anion Gap 19 mmol/L (10-20); BUN (Urea Nitrogen) 24 mg/dL (9.8-20.1); Bilirubin, Total 0.6 mg/dL (0.2-1.2); Calc. Creatinine Clearance 0 mL/min (70-130); Calcium 8.8 mg/dL (7.8-10.44); Carbon Dioxide 28 mmol/L (23-31); Chloride 97 mmol/L (98-107); Estimated GFR 7; Glucose 146 mg/dL (80-115); Potassium 3.7 mmol/L (3.5-5.1); Protein, Total 7.9 g/dL (5.8-8.1); Sodium 140 mmol/L (136-145)
[2023-06-26 13:08] LABS: Troponin I Less than 0.010 ng/mL (< 0.028)
== END 2023-06-26 13:39 | disposition home or self-care (01) ==
LOC: ERS 09:16
DX: R07.9 Chest pain, unspecified (principal); I12.0 Hypertensive chronic kidney disease with stage 5 chronic kidney disease or end stage renal disease; N18.6 End stage renal disease; E11.22 Type 2 diabetes mellitus with diabetic chronic kidney disease; Z99.2 Dependence on renal dialysis
CPT/HCPCS: 36415; 71045; 80053; 84484; 85025; 90935; 93005; G0257

== ENCOUNTER 2023-08-29 17:43 | Inpatient (IN) | payer MEDICAID, MEDICARE ==
[2023-08-29] MEDS ORDERED: Aspirin Chewable 81 MG TAB ONE (18:23)
[2023-08-29 18:25] LABS: #Basophils 0.1 thou/uL (0.0-0.2); #Eosinphils 1.1 thou/uL (0.0-0.7); #Monocytes 0.8 thou/uL (0.11-0.59); #Neutrophils 5.5 thou/uL (1.40-6.50); %Basophils 0.5 % (0.0-1.0); %Eosinophils 11.8 % (0.0-10.0); %Lymphocytes 19.5 % (21.0-51.0); %Monocytes 8.4 % (0.0-10.0); %Neutrophils 59.4 % (42.0-75.0); Hematocrit 38.2 % (36.0-47.0); Hemoglobin 12.3 g/dL (12.0-16.0); Mean Corpuscular HGB CONC 32.2 g/dL (32.0-36.0); Mean Corpuscular Hemoglobin 32.2 pg (27.0-31.0); Mean Platelet Volume 9.4 fL (7.4-10.4); Platelet Count 171 10x3/uL (130-400); Red Blood Cell (RBC) Count 3.82 mill/uL (4.20-5.40); White Blood Cell (WBC) Count 9.3 10x3/uL (4.8-10.8)
[2023-08-29 18:50] LABS: ALT (SGPT) 16 U/L (8-55); AST (SGOT) 23 U/L (5-34); Albumin 3.6 g/dL (3.4-4.8); Alkaline Phosphatase 84 U/L (40-110); Anion Gap 25 mmol/L (10-20); BUN (Urea Nitrogen) 72 mg/dL (9.8-20.1); Bilirubin, Total 0.6 mg/dL (0.2-1.2); Calc. Creatinine Clearance 0 mL/min (70-130); Calcium 8.5 mg/dL (7.8-10.44); Carbon Dioxide 18 mmol/L (23-31); Chloride 102 mmol/L (98-107); Estimated GFR 3; Glucose 88 mg/dL (80-115); Lipase 49 U/L (8-78); Magnesium 2.4 mg/dL (1.6-2.6); Potassium 5.5 mmol/L (3.5-5.1); Protein, Total 8.6 g/dL (5.8-8.1); Sodium 139 mmol/L (136-145)
[2023-08-29 18:53] LABS: Troponin I 0.018 ng/mL (< 0.028)
[2023-08-29 19:19] LABS: SARS-CoV-2 NAA Rapid Test Not Detected (NotDetected)
[2023-08-29] MEDS ORDERED: Labetalol HCl 100 MG/20 ML VIAL ONE (19:22)
[2023-08-29 20:47] LABS: Bacteria/HPF None Seen HPF (None Seen); Bilirubin Negative (Negative); Blood, Urine Negative (Negative); CAUTI Indications for Culture Pelvic or flank pain; Clarity Clear (Clear); Glucose, Urine (Dipstick) 150 mg/dL (Negative); Ketone, Urine Negative (Negative); Leukocyte 25 Leu/uL (Negative); Nitrite Negative (Negative); Protein, Urine (Dipstick) 100 mg/dL (Neg-Trace); RBC/HPF 0-3 HPF (0-3); Urobilinogen Normal mg/dL (Less than 2)
[2023-08-29 20:48] LABS: Urine Culture Reflex No No
[2023-08-29 22:09] LABS: Troponin I 0.017 ng/mL (< 0.028)
[2023-08-29] MEDS ORDERED: Dextrose 50% Abboject 50 ML SYRINGE SLOW IVP PRN (22:09)
[2023-08-29] MEDS ORDERED: Glucagon 1 MG/ML KIT IM PRN (22:09)
[2023-08-29] MEDS ORDERED: Dextrose 5% in Water 1,000 ML IV PRN (22:09)
[2023-08-29] MEDS ORDERED: HumaLOG 300 UNITS/3 ML VIAL SC PRN ×2 (22:12)
[2023-08-30] MEDS ORDERED: Amoxicillin/Potassium Clav 875 MG TAB PO SCH (00:45)
[2023-08-30] MEDS ORDERED: Amoxicillin/Potassium Clav 875 MG TAB ONE ×3 (02:41→16:05)
[2023-08-30] MEDS ORDERED: Acetaminophen 325 MG TAB ONE ×2 (02:41→13:14)
[2023-08-30] MEDS: Acetaminophen 325 MG TAB PO PRN ×3 (02:45→18:05)
[2023-08-30 02:47] LABS: HBSAB Concentration Less than 8.00 mIU/mL; HBSAg Index 0.17 S/CO (0-0.99); Hep B Core Total Ab Non-Reactive (NonReactive); Hep B Core Total Index 0.19 S/CO (0-0.79); Hep B Surf AB Non-Reactive (NonReactive); Hep B Surf Ag Non-Reactive S/CO (NonReactive); Hep C IgG Ab Non-Reactive S/CO (NonReactive); Hep C Index 0.13 S/CO (0-0.79)
[2023-08-30] MEDS ORDERED: Amlodipine 10 MG TAB PO SCH (04:30)
[2023-08-30 05:15] LABS: #Basophils 0.1 thou/uL (0.0-0.2); #Eosinphils 1.2 thou/uL (0.0-0.7); #Neutrophils 4.7 thou/uL (1.40-6.50); %Basophils 0.7 % (0.0-1.0); %Lymphocytes 24.3 % (21.0-51.0); %Monocytes 11.2 % (0.0-10.0); %Neutrophils 50.4 % (42.0-75.0); Hematocrit 37.3 % (36.0-47.0); Hemoglobin 11.8 g/dL (12.0-16.0); Mean Corpuscular HGB CONC 31.6 g/dL (32.0-36.0); Mean Corpuscular Hemoglobin 31.6 pg (27.0-31.0); Mean Corpuscular Volume 99.7 fl (78.0-98.0); Mean Platelet Volume 9.2 fL (7.4-10.4); Platelet Count 169 10x3/uL (130-400); RBC Distribution Width 15.9 % (11.5-14.5); Red Blood Cell (RBC) Count 3.74 mill/uL (4.20-5.40); White Blood Cell (WBC) Count 9.2 10x3/uL (4.8-10.8)
[2023-08-30 05:48] LABS: ALT (SGPT) 16 U/L (8-55); AST (SGOT) 20 U/L (5-34); Albumin 3.4 g/dL (3.4-4.8); Alkaline Phosphatase 79 U/L (40-110); Anion Gap 18 mmol/L (10-20); BUN (Urea Nitrogen) 42 mg/dL (9.8-20.1); Bilirubin, Total 0.7 mg/dL (0.2-1.2); Calc. Creatinine Clearance 0 mL/min (70-130); Calcium 8.6 mg/dL (7.8-10.44); Carbon Dioxide 26 mmol/L (23-31); Chloride 97 mmol/L (98-107); Estimated GFR 5; Globulin 4.7 g/dL (2.4-3.5); Glucose 75 mg/dL (80-115); Potassium 3.9 mmol/L (3.5-5.1); Protein, Total 8.1 g/dL (5.8-8.1); Sodium 137 mmol/L (136-145)
[2023-08-30] MEDS ORDERED: Amlodipine 5 MG TAB ONE (05:54)
[2023-08-30] MEDS ORDERED: Carvedilol 25 MG TAB ONE (08:00)
[2023-08-30] MEDS: Amoxicillin/Potassium Clav 875 MG TAB PO SCH ×3 (08:06→23:46)
[2023-08-30] MEDS: Carvedilol 25 MG TAB PO SCH ×2 (08:06→20:40)
[2023-08-30] MEDS ORDERED: Heparin 10,000 UNITS/ 10 ML VIAL ONE (08:53)
[2023-08-30] MEDS ORDERED: Carvedilol 6.25 MG TAB PO SCH (09:00)
[2023-08-30] MEDS ORDERED: NIFEdipine XL 30 MG ER.TAB PO SCH (09:00)
[2023-08-30] MEDS ORDERED: HumaLOG 300 UNITS/3 ML VIAL ONE (16:12)
[2023-08-30] MEDS ORDERED: Metoclopramide HCl 10 MG (2 mL) VIAL IVP SCH (17:15)
[2023-08-30] MEDS ORDERED: diphenhydrAMINE 50 MG/ML VIAL IVP SCH (17:15)
[2023-08-30] MEDS ORDERED: Labetalol HCl 100 MG/20 ML VIAL SLOW IVP PRN (19:23)
[2023-08-30 19:55] VITALS: BMI 41.9
[2023-08-31] MEDS ORDERED: NIFEdipine XL 60 MG ER.TAB PO SCH (06:25)
[2023-08-31 10:14] LABS: #Monocytes 0.8 thou/uL (0.11-0.59); #Neutrophils 4.3 thou/uL (1.40-6.50); %Basophils 0.4 % (0.0-1.0); %Eosinophils 13.2 % (0.0-10.0); %Monocytes 10.6 % (0.0-10.0); %Neutrophils 54.4 % (42.0-75.0); Hematocrit 36.6 % (36.0-47.0); Hemoglobin 11.7 g/dL (12.0-16.0); Mean Corpuscular Hemoglobin 31.9 pg (27.0-31.0); Mean Corpuscular Volume 99.7 fl (78.0-98.0); Mean Platelet Volume 9.7 fL (7.4-10.4); Platelet Count 189 10x3/uL (130-400); RBC Distribution Width 15.8 % (11.5-14.5); Red Blood Cell (RBC) Count 3.67 mill/uL (4.20-5.40); White Blood Cell (WBC) Count 7.9 10x3/uL (4.8-10.8)
[2023-08-31 10:36] LABS: ALT (SGPT) 14 U/L (8-55); AST (SGOT) 18 U/L (5-34); Albumin 3.6 g/dL (3.4-4.8); Alkaline Phosphatase 76 U/L (40-110); Anion Gap 16 mmol/L (10-20); BUN (Urea Nitrogen) 42 mg/dL (9.8-20.1); Bilirubin, Total 0.5 mg/dL (0.2-1.2); Calc. Creatinine Clearance 13 mL/min (70-130); Calcium 8.7 mg/dL (7.8-10.44); Carbon Dioxide 25 mmol/L (23-31); Chloride 99 mmol/L (98-107); Estimated GFR 6; Globulin 4.7 g/dL (2.4-3.5); Glucose 114 mg/dL (80-115); Potassium 4.2 mmol/L (3.5-5.1); Protein, Total 8.3 g/dL (5.8-8.1); Sodium 136 mmol/L (136-145)
[2023-08-31 10:40] LABS: Phosphorus 4.9 mg/dL (2.3-4.7)
[2023-08-31] MEDS: Amoxicillin/Potassium Clav 875 MG TAB PO SCH ×2 (11:32→16:55)
[2023-08-31] MEDS: Carvedilol 25 MG TAB PO SCH (11:33)
[2023-08-31] MEDS: Acetaminophen 325 MG TAB PO PRN (11:33)
[2023-08-31] MEDS ORDERED: Labetalol HCl 100 MG/20 ML VIAL SLOW IVP PRN (13:22)
[2023-08-31 16:04] VITALS: BP 149/66; TEMP 98.1
== END 2023-08-31 18:20 | disposition home or self-care (01) | DRG 304 ==
LOC: ERS 17:43 → ERHOLD 21:32 → 2NO 08-30 17:26
PROVIDERS: ADMIT Emergency Medicine; ATTEND Emergency Medicine
DX: I16.0 Hypertensive urgency (principal); N18.6 End stage renal disease; K57.32 Diverticulitis of large intestine without perforation or abscess without bleeding; I69.954 Hemiplegia and hemiparesis following unspecified cerebrovascular disease affecting left non-dominant side; I12.0 Hypertensive chronic kidney disease with stage 5 chronic kidney disease or end stage renal disease; R30.0 Dysuria; M32.9 Systemic lupus erythematosus, unspecified; E11.22 Type 2 diabetes mellitus with diabetic chronic kidney disease; Z79.899 Other long term (current) drug therapy; Z88.8 Allergy status to other drugs, medicaments and biological substances; Z98.51 Tubal ligation status; Z90.49 Acquired absence of other specified parts of digestive tract; Z98.890 Other specified postprocedural states; Z83.3 Family history of diabetes mellitus; E78.5 Hyperlipidemia, unspecified; E87.5 Hyperkalemia; Z99.2 Dependence on renal dialysis; E87.70 Fluid overload, unspecified; Z11.52 Encounter for screening for COVID-19
CPT/HCPCS: 36415; 36416; 71045; 74176; 80053; 81001; 83605; 83690; 83735; 84100; 84145; 84484; 85025; 86704; 87086; 93005; 94760; 96374; J1200; J1815; J2765

== ENCOUNTER 2024-08-18 16:58 | Emergency (ER) | payer MEDICAID, MEDICARE ==
[2024-08-18 17:39] LABS: #Basophils Less than 0.03 10x3/uL (0.0-0.2); %Basophils 0.3 % (0.0-1.0); %Eosinophils 5.7 % (0.0-10.0); %Lymphocytes 21.9 % (21.0-51.0); Hematocrit 33.7 % (36.0-47.0); Hemoglobin 11.2 g/dL (12.0-16.0); Mean Corpuscular HGB CONC 33.2 g/dL (32.0-36.0); Mean Corpuscular Hemoglobin 33.3 pg (27.0-31.0); Mean Corpuscular Volume 100.3 fL (78.0-98.0); Mean Platelet Volume 9.6 fL (7.4-10.4); Platelet Count 154 10x3/uL (130-400); RBC Distribution Width 13.1 % (11.5-14.5); Red Blood Cell (RBC) Count 3.36 mill/uL (4.20-5.40)
[2024-08-18 18:06] LABS: ALT (SGPT) 33 U/L (8-55); AST (SGOT) 38 U/L (5-34); Alkaline Phosphatase 109 U/L (40-110); Anion Gap 17 mmol/L (10-20); BUN (Urea Nitrogen) 43 mg/dL (9.8-20.1); Bilirubin, Total 0.6 mg/dL (0.2-1.2); Calc. Creatinine Clearance 0 mL/min (70-130); Calcium 8.4 mg/dL (7.8-10.44); Carbon Dioxide 25 mmol/L (23-31); Chloride 97 mmol/L (98-107); Estimated GFR 6; Globulin 5.4 g/dL (2.4-3.5); Glucose 114 mg/dL (80-115); Protein, Total 8.4 g/dL (5.8-8.1); Sodium 135 mmol/L (136-145)
[2024-08-18 18:10] LABS: Troponin I 0.015 ng/mL (< 0.028)
[2024-08-18] MEDS ORDERED: Aspirin Chewable 81 MG TAB ONE (18:19)
[2024-08-18 19:01] LABS: Bacteria/HPF None Seen HPF (None Seen); Bilirubin Negative (Negative); Blood, Urine Negative (Negative); CAUTI Indications for Culture Pelvic or flank pain; Clarity Clear (Clear); Glucose, Urine (Dipstick) 150 mg/dL (Negative); Ketone, Urine Negative (Negative); Leukocyte 25 Leu/uL (Negative); Nitrite Negative (Negative); Protein, Urine (Dipstick) 70 mg/dL (Neg-Trace); RBC/HPF 0-3 HPF (0-3); Specific Gravity, Urine 1.008 (1.002-1.036); Urobilinogen Normal mg/dL (Less than 2); WBC/HPF 0-3 HPF (0-3); pH, Urine 8.5 (5.0-9.0)
[2024-08-18 19:02] LABS: Urine Culture Reflex No No
[2024-08-18] MEDS ORDERED: cloNIDine 0.1 MG TAB ONE (20:47)
== END 2024-08-18 20:52 | disposition home or self-care (01) ==
LOC: ERS 16:58
DX: I12.0 Hypertensive chronic kidney disease with stage 5 chronic kidney disease or end stage renal disease (principal); E11.22 Type 2 diabetes mellitus with diabetic chronic kidney disease; N18.6 End stage renal disease; N17.9 Acute kidney failure, unspecified
CPT/HCPCS: 36415; 70450; 80053; 81001; 83880; 84484; 85025; 93005

== ENCOUNTER 2024-09-03 16:11 | Emergency (ER) | payer MEDICAID ==
[2024-09-03 17:02] LABS: #Basophils 0.04 10x3/uL (0.0-0.2); %Basophils 0.5 % (0.0-1.0); %Eosinophils 0.9 % (0.0-10.0); %Lymphocytes 19.9 % (21.0-51.0); %Monocytes 6.1 % (0.0-10.0); Hematocrit 33.7 % (36.0-47.0); Hemoglobin 11.6 g/dL (12.0-16.0); Mean Corpuscular HGB CONC 34.4 g/dL (32.0-36.0); Mean Corpuscular Hemoglobin 33.7 pg (27.0-31.0); Mean Platelet Volume 9.6 fL (7.4-10.4); Platelet Count 188 10x3/uL (130-400); Red Blood Cell (RBC) Count 3.44 mill/uL (4.20-5.40)
[2024-09-03] MEDS ORDERED: Prochlorperazine 10 MG/2 ML VIAL ONE (17:07)
[2024-09-03] MEDS ORDERED: diphenhydrAMINE 50 MG/ML VIAL ONE (17:08)
[2024-09-03 17:15] LABS: ALT (SGPT) 27 U/L (8-55); AST (SGOT) 31 U/L (5-34); Albumin 3.2 g/dL (3.4-4.8); Alkaline Phosphatase 120 U/L (40-110); Anion Gap 21 mmol/L (10-20); BUN (Urea Nitrogen) 46 mg/dL (9.8-20.1); Bilirubin, Total 0.6 mg/dL (0.2-1.2); Calc. Creatinine Clearance 0 mL/min (70-130); Calcium 8.4 mg/dL (7.8-10.44); Carbon Dioxide 20 mmol/L (23-31); Chloride 100 mmol/L (98-107); Estimated GFR 4; Globulin 5.7 g/dL (2.4-3.5); Glucose 121 mg/dL (80-115); Magnesium 2.1 mg/dL (1.6-2.6); Potassium 4.3 mmol/L (3.5-5.1); Protein, Total 8.9 g/dL (5.8-8.1); Sodium 137 mmol/L (136-145)
[2024-09-03] MEDS ORDERED: Magnesium 2 GM/50 ML BAG (IN WATER) ONE (17:23)
[2024-09-03 17:39] LABS: Bacteria/HPF 1+ HPF (None Seen); Bilirubin Negative (Negative); Blood, Urine Trace (Negative); CAUTI Indications for Culture Pelvic or flank pain; Clarity Turbid (Clear); Glucose, Urine (Dipstick) 150 mg/dL (Negative); Ketone, Urine Negative (Negative); Leukocyte 75 Leu/uL (Negative); Nitrite Negative (Negative); Protein, Urine (Dipstick) 100 mg/dL (Neg-Trace); RBC/HPF 0-3 HPF (0-3); Specific Gravity, Urine 1.012 (1.002-1.036); Squamous Epithelial 21-50 HPF (0-3); Urobilinogen Normal mg/dL (Less than 2)
[2024-09-03 17:40] LABS: Urine Culture Reflex No No
[2024-09-03] MEDS ORDERED: Ketorolac Tromethamine 30 MG (1 mL) VIAL ONE (17:45)
[2024-09-03 18:00] LABS: Actual Bicarbonate (HCO3v) 20.4 mEq/L (22-28); Base Excess -3.7 mEq/L (-2.0 to +3.0); Calcium, Ionized (venous) 0.99 mmol/L (1.16-1.32); Chloride (VBG) 99 mmol/L (98-106); Hematocrit-VBG 34 % (36.0-47.0); Hemoglobin (Hb) 11.5 g/dL (11.7-16.0); Potassium (VBG) 4.19 mmol/L (3.70-5.30); Sodium 137 mmol/L (133-146); pH (venous) 7.399 (7.32-7.43)
[2024-09-03 18:24] LABS: Phosphorus 6.1 mg/dL (2.3-4.7)
[2024-09-03 18:38] LABS: Troponin I 0.015 ng/mL (< 0.028)
[2024-09-03] MEDS ORDERED: fentaNYL 50 mcg/mL 1 mL Vial ONE (18:42)
== END 2024-09-03 18:56 | disposition home or self-care (01) ==
LOC: ERS 16:11
DX: G43.909 Migraine, unspecified, not intractable, without status migrainosus (principal); E11.9 Type 2 diabetes mellitus without complications; I10 Essential (primary) hypertension; Z95.5 Presence of coronary angioplasty implant and graft
CPT/HCPCS: 36415; 70450; 80053; 81001; 82010; 82805; 83605; 83735; 84100; 84484; 85025; 96374; 96375; J0780; J1200; J1885; J3010; J3475